=== PATIENT | male | born 1940 | race Caucasian/White ===

== ENCOUNTER 2016-07-25 11:37 | Day surgery (SDC) | payer MEDICARE, BC ==
[2016-07-24 11:11] VITALS: BMI 33.6
[~2016-07-25 11:37] MED LIST: SODIUM CHLORIDE 0.9% 1,000 ML IV SCH
[2016-07-25 12:07] LABS: Glucose,Whole Blood 98 mg/dL (75-99)
[2016-07-25 12:24] VITALS: BP 125/71; RESP 16; TEMP 98.6
[2016-07-25 12:41] LABS: INR 1.9 (<1.1); Prothrombin Time 18.6 sec (9.0-12.0)
[2016-07-25] MEDS ORDERED: IODIXANOL 320 MG/ML 100 ML IV ONE (16:49)
[2016-07-25 17:02] VITALS: PULSE 62
--- NOTE | 2016-07-25 18:01 | CE ---
DATE OF SERVICE: Mr. Ministerio Peacock has Medtronic single-chamber ICD. He was brought in for cinefluoroscopy because there was noise noted in his ventricular channel on the first july. No ICD shocks were delivered. The ICD was reprogrammed with longer detections of the VT zone. Cinefluoroscopy of the leads was performed. No fractures or breaks are noted. He has a dual coil ICD lead. Left upper extremity venogram was performed and this showed a large patent vein (subclavian and axillary) without any stenosis. PLAN: I will reassess his past ICD record to see percentage of ventricular pacing to decide regarding implantation of a new lead versus implantation of subcutaneous ICD. I did have [employer] interrogate his vectors and he does qualify for subcutaneous ICD also (3 out of 3 configurations). Michelle/Pallavi at [facility]
== END 2016-07-25 17:07 | disposition home or self-care (01) ==
LOC: CATHEP 11:37
PROVIDERS: ATTEND Internal Medicine Clinical Cardiac Electrophysiology
DX: Z45.010 Encounter for checking and testing of cardiac pacemaker pulse generator [battery] (principal); I48.2 Chronic atrial fibrillation; E78.5 Hyperlipidemia, unspecified; I25.5 Ischemic cardiomyopathy; E78.2 Mixed hyperlipidemia; I12.9 Hypertensive chronic kidney disease with stage 1 through stage 4 chronic kidney disease, or unspecified chronic kidney disease; N18.9 Chronic kidney disease, unspecified; Z91.040 Latex allergy status; Z88.5 Allergy status to narcotic agent; Z79.01 Long term (current) use of anticoagulants; Z88.8 Allergy status to other drugs, medicaments and biological substances; Z88.1 Allergy status to other antibiotic agents; Z85.46 Personal history of malignant neoplasm of prostate; I48.92 Unspecified atrial flutter; Z86.73 Personal history of transient ischemic attack (TIA), and cerebral infarction without residual deficits; Z79.84 Long term (current) use of oral hypoglycemic drugs; Z79.899 Other long term (current) drug therapy
CPT/HCPCS: 36005; 75820; 76000; 85610; Q9967

== ENCOUNTER → 2016-08-28 | Outpatient (CLI) | payer MEDICARE, BC ==
[2016-08-28 14:07] LABS: Potassium 4.8 mmol/L (3.5-5.1); Total Bilirubin 0.6 mg/dL (0.2-1.3); Total Protein 6.8 g/dL (6.3-8.2)
== END | disposition home or self-care (01) ==
LOC: LABWHC1 13:03
PROVIDERS: ATTEND Internal Medicine Interventional Cardiology
DX: N18.9 Chronic kidney disease, unspecified (principal); I25.5 Ischemic cardiomyopathy
CPT/HCPCS: 36415; 80053; 81050; 82570; 83880; 84156

== ENCOUNTER 2016-09-11 15:02 | Emergency (ER) | payer MEDICARE, BC ==
[2016-09-11 15:13] VITALS: RESP 18; TEMP 98.1
--- NOTE | 2016-09-11 15:48 | CT ---
EXAMINATION TYPE: CT brain wo con DATE OF EXAM: 09/11/2016 3:41 PM COMPARISON: Previous study dated 06/05/2016. HISTORY: fall today TECHNIQUE: Helical acquisition through the brain was obtained without intravenous contrast. The data was reformatted in axial, coronal and sagittal projections. CT DLP: 1072.3 mGycm Automated exposure control for dose reduction was used. FINDINGS: There are generalized changes of sulcal prominence and ventriculomegaly, compatible with atrophic meera nge. There is diffuse periventricular white matter lucency, compatible with chronic white matter isch emic change. There is no acute focal lesion, mass effect or midline shift identified. I do not see ev idence of intracranial blood. There been bilateral Coldwell Aidan procedures. There is mucoperiosteal thickening involving the right maxillary sinus. There has been a previous ethmoidectomy. There is some residual mucosal thickening. The mastoid air cells are clear. IMPRESSION: 1. NO ACUTE INTRACRANIAL ABNORMALITY. 2. ATROPHIC CHANGE. 3. CHRONIC WHITE MATTER ISCHEMIC CHANGE. 4. POSTSURGICAL CHANGE INVOLVING THE SINUSES WITH PERSISTENT SINUS MUCOSAL DISEASE INVOLVING THE RIGH T MAXILLARY AND ETHMOIDAL SINUSES.
--- NOTE | 2016-09-11 16:01 | ED ---
General Adult HPI - General Chief complaint: Fall Stated complaint: Fall Time Seen by Provider: 09/11/16 15:10 Source: patient, EMS, RN notes reviewed Mode of arrival: EMS - History of Present Illness Initial comments: This is a 76-year-old male who presents emergency department after having had a fall. Patient states he is on blood thinners. Patient states he bent over to brick picker something on the floor and he fell backwards hit the back of his head. Patient states he was not days he did not lose consciousness but he does have a headache and posterior aspect of his head. Patient states he is a little neck stiffness but he is always quite stiff. Patient states he has no numbness or weakness. Patient also states he fell over and hit the side of his ribs on the right and has a little bit tender. Patient denies any difficulty breathing or shortness of breath. Patient denies any abdominal pain. Patient denies any upper shoulder pain or lower extremity pain. - Related Data Home Medications Medication Instructions Recorded Confirmed Carvedilol [Coreg] 25 mg PO BID 01/26/14 09/11/16 Isosorbide Mononitrate [Imdur] 60 mg PO DAILY 01/26/14 09/11/16 Simvastatin [Zocor] 40 mg PO HS 01/26/14 09/11/16 Losartan [Cozaar] 25 mg PO DAILY 06/04/16 09/11/16 Acetaminophen Tab [Tylenol] 500 mg PO Q4-6H PRN 07/24/16 09/11/16 Baclofen [Lioresal] 10 mg PO BID 07/24/16 09/11/16 Furosemide [Lasix] 40 mg PO DAILY 07/24/16 09/11/16 Gabapentin [Neurontin] 100 mg PO BID 07/24/16 09/11/16 Warfarin [Coumadin] 2.5 mg PO SUTUTH 07/24/16 09/11/16 Warfarin [Coumadin] 5 mg PO MOWEFRSA 07/24/16 09/11/16 Butalb/APAP/Caff 50-325-40Mg 1 tab PO BID PRN 09/11/16 09/11/16 [Fioricet 50-325-40] Nizatidine [Axid] 150 mg PO DAILY 09/11/16 09/11/16 Sulfamethox-Tmp 800-160Mg [Bactrim 1 tab PO Q12HR 09/11/16 09/11/16 DS 800-160 mg] Previous Rx's Medication Instructions Recorded sitaGLIPtin PHOSPHATE [Januvia] 50 mg PO DAILY #30 tab 05/23/16 Allergies Allergy/AdvReac Type Severity Reaction Status Date / Time ciprofloxacin Allergy Rash/Hives Verified 09/11/16 15:43 codeine Allergy Rapid Verified 09/11/16 15:43 Heart Rate diclofenac sodium Allergy Rash/Hives Verified 09/11/16 15:43 [From Voltaren] hydrocodone [From [place]] Allergy Parkinson Verified 09/11/16 15:43 like symptoms latex Allergy Dyspnea, Verified 09/11/16 15:43 hives Review of Systems ROS Statement: Those systems with pertinent positive or pertinent negative responses have been documented in the HPI. ROS Other: All systems not noted in ROS Statement are negative. Past Medical History Past Medical History: Cancer, COPD, CVA/TIA, Diabetes Mellitus, Hyperlipidemia, Hypertension, Myocardial Infarction ([place]), Osteoarthritis (OA), Prostate Disorder , Sleep Apnea/CPAP/BIPAP Additional Past Medical History / Comment(s): SEE DR LUNDBERG'S H&P, SOB W/ ACTIVITY, KIDNEY STONES, PROSTATE CA 1998, URINARY INCONTINENCE, BACK PAIN, DDD , weak left leg-uses walker,. HAD 1 SEIZURE AFTER STROKE IN 1998, GOUT, MACULAR DEGENERATION, uses CPAP Last Myocardial Infarction Date:: 1996 History of Any Multi-Drug Resistant Organisms: None Reported Past Surgical History: Adenoidectomy, AICD, Appendectomy, Back Surgery, Cholecystectomy, Heart Catheterization With Stent, Joint Replacement, Orthopedic Surgery, Prostate Surgery, Tonsillectomy Additional Past Surgical History / Comment(s): LT HIP REPLACEMENT, PROSTATECTOMY , AICD GENERATOR CHANGE 02-01-14, TALITA CATARACTS, SX RT EYE FOR"BLEEDING BEHIND EYE" Additional Past Anesthesia/Blood Transfusion Reaction / Comment(s): PT HAD HALLUCINATIONS WITH EPIDURAL ANESTHESIA. UNKNOWN ANESTHESIA FAMILY HX Date of Last Stent Placement:: 1996 Type of Cardiac Device: AICD Device Placement Date:: 2005-MEDTRONIC- GENERATOR CHANGE 02-01-14 Past Psychological History: Anxiety, Depression Additional Psychological History / Comment(s): PT STATED LAST FEW WEEKS HAS HAD SOME DEPRESSION-DENIES ANY THOUGHTS OF HARMING SELF, BUT HAS SOEM HOPLESSNESS FEELING FOR FUTURE. Smoking Status: Former smoker Past Alcohol Use History: None Reported Additional Past Alcohol Use History / Comment(s): QUIT SMOKING 1959, HAS RARE ALCOHOL Past Drug Use History: None Reported - Past Family History Brother(s) Family Medical History: Cancer Additional Family Medical History / Comment(s): BRAIN BLEED, LUNG CA Sister(s) Family Medical History: Cancer Additional Family Medical History / Comment(s): BREAST, KIDNEY General Exam - General Exam Comments Initial Comments: GENERAL: Patient is well-developed and well-nourished. Patient is nontoxic and well- hydrated and is in mild distress. ENT: Neck is soft and supple. No significant lymphadenopathy is noted. Oropharynx is clear. Moist mucous membranes. Neck has full range of motion without eliciting any pain. EYES: The sclera were anicteric and conjunctiva were pink and moist. Extraocular movements were intact and pupils were equal round and reactive to light. Eyelids were unremarkable. PULMONARY: Unlabored respirations. Good breath sounds bilaterally. No audible rales rhonchi or wheezing was noted. CARDIOVASCULAR: There is a regular rate and rhythm without any murmurs gallops or rubs. ABDOMEN: Soft and nontender with normal bowel sounds. No palpable organomegaly was noted. There is no palpable pulsatile mass. SKIN: Skin is clear with no lesions or rashes and otherwise unremarkable. NEUROLOGIC: Patient is alert and oriented x3. Cranial nerves II through XII are grossly intact. Motor and sensory are also intact. Normal speech, volume and content. Symmetrical smile. MUSCULOSKELETAL: Normal extremities with adequate strength and full range of motion. LYMPHATICS: No significant lymphadenopathy is noted PSYCHIATRIC: Normal psychiatric evaluation. Normal interpersonal interactions appears functionally intact in deals appropriately with others. No signs of depression. No signs of anxiety. Course Vital Signs 09/11/16 09/11/16 09/11/16 15:07 16:18 16:59 Temperature 98.1 F 98.1 F Pulse Rate 81 78 100 Respiratory 18 18 18 Rate Blood Pressure 99/53 108/63 120/66 O2 Sat by Pulse 97 97 93 L Oximetry Medical Decision Making - Medical Decision Making History of the brain shows no acute abnormality. CT of the C-spine shows a type II odontoid fracture. At this point time a C- spine was placed on the patient because he did not come into the emergency department with one on. Chest x-ray shows a mallet. I spoke with Dr. Casey at [facility] and he accepted the transfer of this patient. Critical Care Time Critical Care Time: Yes Total Critical Care Time: 35 Disposition Clinical Impression: Odontoid fracture with type II morphology Disposition: OTHER INSTITUTION NOT DEFINED Time of Disposition: 17:05 - Out of Hospital Transfer - Req. Specs Out of Hospital Transfer - Requested Specifics: Other Emergency Center ( [facility])
--- NOTE | 2016-09-11 16:15 | CT ---
EXAMINATION TYPE: CT cervical spine wo con DATE OF EXAM: 09/11/2016 4:06 PM COMPARISON: NONE HISTORY: fall today CT DLP: 642.7 mGycm Automated exposure control for dose reduction was used. TECHNIQUE: CT scan of the cervical spine is obtained without contrast, axial images are obtained, sa gittal and coronal reformatted images are also reviewed. FINDINGS: Visualized portions of the lungs are clear. Prevertebral soft tissues are normal. Visualized intracranial structures are normal. There is a type II odontoid fracture. There is minimal posterior displacement and angulation. There is loss of the normal cervical lordosis. There is diffuse degenerative disc disease. There is m arked hypertrophic spondylosis, particularly at C3-4. There is a bony fusion at C6-7 and C7-T1 and al so partial fusion at C4-5. 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 There is no definite discal protrusion. IMPRESSION: 1. TYPE II ODONTOID FRACTURE WITH MINIMAL POSTERIOR ANGULATION AND DISPLACEMENT. 2. SEVERE DEGENERATIVE CHANGE. 3. MULTIPLE BONY EFFUSIONS. 4. EVIDENCE OF FORESTIER'S DISEASE.
--- NOTE | 2016-09-11 16:17 | XR ---
EXAMINATION TYPE: XR chest 2V DATE OF EXAM: 09/11/2016 4:11 PM HISTORY: Difficulty breathing . REFERENCE: Previous study dated 06/04/2016. FINDINGS: There is a unipolar pacemaker place on the left. Lung volumes are prominent. The heart is enlarged. There is bibasilar airspace disease, much worse on the left than the right. I could not exclude small effusions. IMPRESSION: 1. COPD. 2. CARDIOMEGALY. 3. BIBASILAR AIRSPACE DISEASE, WORSE ON THE LEFT THAN THE RIGHT. 4. I CANNOT EXCLUDE SMALL, BILATERAL EFFUSIONS.
[2016-09-11 17:01] VITALS: BP 120/66; PULSE 100
[2016-09-11 17:06] LABS: Basophils % (A) 0 %; CH 28.7; Eosinophils # (A) 0.2 k/uL (0-0.7); Eosinophils % (A) 2 %; HCT 29.3 % (39.0-53.0); HDW 2.52; HGB 9.2 gm/dL (13.0-17.5); Hypochromasia Slight; Luc # (Auto) 0.09; Luc % (Auto) 1; Lymphocytes # (A) 0.3 k/uL (1.0-4.8); Lymphocytes % (A) 5 %; MCH 29.1 pg (25.0-35.0); MCHC 31.4 g/dL (31.0-37.0); MCV 92.8 fL (80.0-100.0); Mean Platelet Volume 7.1; Monocytes # (A) 0.4 k/uL (0-1.0); Monocytes % (A) 5 %; Neutrophils # (A) 5.9 k/uL (1.3-7.7); Neutrophils % (A) 86 %; RBC 3.16 m/uL (4.30-5.90); RDW 14.7 % (11.5-15.5); WBC 6.8 k/uL (3.8-10.6); WBC (Perox) 6.99
[2016-09-11 17:16] LABS: Calcium 9.6 mg/dL (8.4-10.2); Potassium 4.6 mmol/L (3.5-5.1); Total Bilirubin 0.5 mg/dL (0.2-1.3); Total Protein 6.4 g/dL (6.3-8.2)
[2016-09-11] MEDS ORDERED: ONDANSETRON 4 MG/2 ML VIAL IVP STA (17:42)
[2016-09-11 18:10] LABS: INR 1.7 (<1.1); Prothrombin Time 16.3 sec (9.0-12.0)
== END 2016-09-11 18:22 | disposition other institution (70) ==
LOC: EC 15:02
DX: S12.110A Anterior displaced Type II dens fracture, initial encounter for closed fracture (principal); E11.9 Type 2 diabetes mellitus without complications; I10 Essential (primary) hypertension; E78.5 Hyperlipidemia, unspecified; I25.2 Old myocardial infarction; Z95.810 Presence of automatic (implantable) cardiac defibrillator; Z87.442 Personal history of urinary calculi; Z85.46 Personal history of malignant neoplasm of prostate; Z86.73 Personal history of transient ischemic attack (TIA), and cerebral infarction without residual deficits; Z79.84 Long term (current) use of oral hypoglycemic drugs; Z79.01 Long term (current) use of anticoagulants; Z79.899 Other long term (current) drug therapy; Z88.5 Allergy status to narcotic agent; Z88.8 Allergy status to other drugs, medicaments and biological substances; Z88.1 Allergy status to other antibiotic agents; Z91.040 Latex allergy status
CPT/HCPCS: 36415; 83880; 80053; 85025; 85610; 85730; 71020; 72125; 70450; 99285; 96374; J2405

== ENCOUNTER → 2016-10-15 | Outpatient (CLI) | payer MEDICARE, BC ==
--- NOTE | 2016-10-15 12:02 | XR ---
Lumbar spine HISTORY: T6 fracture, pain 3 views of the lumbar spine, comparison the thoracic spine same date There is multilevel spondylosis. Bone mineralization is reduced. Anterolisthesis grade 1 L4-5, retrol isthesis grade 1 L3-4. Loss of disc height present at the intervertebral levels. Vacuum phenomenon is also present. Sclerosis present in the posterior elements of the lower lumbar spine. Dense atheroscl erotic vascular calcifications present within the aorta. Anterior flowing osteophytes present along t he upper lumbar spine, lower thoracic spine with preservation of disc space. Postop changes are noted in the pelvis. IMPRESSION: There are findings of degenerative disc disease and facet arthropathy. Osteopenia. Additi onal findings of diffuse idiopathic skeletal hyperostosis are suspected.
[2016-10-15 12:23] LABS: CH 27.6; CHCM 30.2; HCT 32.3 % (39.0-53.0); HDW 2.56; Hypochromasia Marked; MCH 28.5 pg (25.0-35.0); MCHC 31.1 g/dL (31.0-37.0); MCV 91.7 fL (80.0-100.0); Mean Platelet Volume 6.6; RBC 3.52 m/uL (4.30-5.90); RDW 15.1 % (11.5-15.5); WBC 5.3 k/uL (3.8-10.6)
[2016-10-15 12:36] LABS: Magnesium 2.2 mg/dL (1.6-2.3); Phosphorous 3.7 mg/dL (2.5-4.5); Potassium 4.7 mmol/L (3.5-5.1); Total Bilirubin 0.6 mg/dL (0.2-1.3); Total Protein 6.4 g/dL (6.3-8.2); Uric Acid 9.4 mg/dL (3.5-8.5)
--- NOTE | 2016-10-15 12:37 | XR ---
Thoracic spine HISTORY: T6 vertebral fracture, dens fracture Correlation to CT cervical spine August 2 views of the thoracic spine on 3 images. Bone mineralization is reduced. Flowing anterior osteophytes are noted. Disc spaces relatively mainta ined. Vertebral body height is normal. Alignment is maintained. Patient is rotated. Intracardiac defi brillator lead noted incidentally. Question some increased density at the right lung base. There may be associated air bronchograms. Dens fracture is noted incidentally with displacement. IMPRESSION: Correlate for diffuse idiopathic skeletal hyperostosis. Osteopenia. Difficult to exclude right lower lobe pneumonia, consider follow-up chest x-ray for better evaluation. Known dens fracture .
[2016-10-15 12:45] LABS: % Iron Saturation 16.5 % (20-50)
== END | disposition home or self-care (01) ==
LOC: RADXRMAIN 10:54
PROVIDERS: ATTEND Nurse Practitioner Family
DX: S22.059A Unspecified fracture of T5-T6 vertebra, initial encounter for closed fracture (principal); M85.88 Other specified disorders of bone density and structure, other site; N17.9 Acute kidney failure, unspecified; D64.9 Anemia, unspecified; E21.3 Hyperparathyroidism, unspecified; E55.9 Vitamin D deficiency, unspecified; M10.9 Gout, unspecified
CPT/HCPCS: 36415; 72070; 72100; 80053; 82306; 82728; 83540; 83550; 83735; 83970; 84100; 84550; 85027

== ENCOUNTER → 2016-11-27 | Outpatient (CLI) | payer MEDICARE, BC ==
--- NOTE | 2016-11-27 14:55 | XR ---
Limited cervical spine HISTORY: Cervical and thoracic fracture 3 views of the cervical spine Correlation to previous cervical spine CT dated August Patient's odontoid fracture is again noted and shows a similar appearance. Bone mineralization is red uced. Hypertrophic changes are stable, there is possibly underlying diffuse idiopathic skeletal hyper ostosis. Prevertebral soft tissues are unchanged. Multilevel facet arthropathy noted. Defibrillator l ead incidentally noted. IMPRESSION: Displaced odontoid fracture is stable.
--- NOTE | 2016-11-27 14:59 | XR ---
Thoracic spine HISTORY: History of thoracic spine fracture 2 views of the thoracic spine correlated to prior exam 15 October 2016 Intracardiac defibrillator lead is present. Bone mineralization is reduced and may limit sensitivity. There is multilevel spondylosis, bridging osteophytes suggest underlying diffuse idiopathic skeletal hyperostosis. No subluxation is evident. Question some mild anterior wedging its T6 is stable. IMPRESSION: Low bone mineralization may limit sensitivity. CT scan could be performed for better eval uation. Additional findings above.
== END | disposition home or self-care (01) ==
LOC: RADXRMAIN 10:54
PROVIDERS: ATTEND Neurological Surgery
DX: S12.110A Anterior displaced Type II dens fracture, initial encounter for closed fracture (principal)
CPT/HCPCS: 72040; 72070

== ENCOUNTER → 2017-01-24 | Outpatient (CLI) | payer MEDICARE, BC ==
[2017-01-24 10:33] LABS: Calcium 10.3 mg/dL (8.4-10.2); Magnesium 2.2 mg/dL (1.6-2.3); Phosphorous 3.5 mg/dL (2.5-4.5); Potassium 4.6 mmol/L (3.5-5.1); Total Bilirubin 0.6 mg/dL (0.2-1.3); Total Protein 6.3 g/dL (6.3-8.2); Uric Acid 5.1 mg/dL (3.5-8.5)
[2017-01-24 10:42] LABS: % Iron Saturation 26.6 % (20-50)
[2017-01-24 10:46] LABS: Anisocytosis Slight; CH 30.3; CHCM 31.9; HCT 36.8 % (39.0-53.0); HDW 2.26; MCH 31.2 pg (25.0-35.0); MCHC 32.7 g/dL (31.0-37.0); MCV 95.6 fL (80.0-100.0); Macrocytosis Slight; Mean Platelet Volume 7.2; RBC 3.85 m/uL (4.30-5.90); RDW 17.8 % (11.5-15.5); WBC 8.1 k/uL (3.8-10.6)
== END | disposition home or self-care (01) ==
LOC: LABWHC1 10:00
PROVIDERS: ATTEND Nurse Practitioner Family
DX: N17.9 Acute kidney failure, unspecified (principal); D64.9 Anemia, unspecified; E21.3 Hyperparathyroidism, unspecified; E55.9 Vitamin D deficiency, unspecified; M10.9 Gout, unspecified
CPT/HCPCS: 36415; 80053; 82306; 82728; 83540; 83550; 83735; 83970; 84100; 84550; 85027

== ENCOUNTER → 2017-03-20 | Outpatient (CLI) | payer MEDICARE, BC ==
[2017-03-20 11:28] LABS: Calcium 10.1 mg/dL (8.4-10.2); Potassium 4.1 mmol/L (3.5-5.1); Total Bilirubin 1.1 mg/dL (0.2-1.3); Total Protein 6.4 g/dL (6.3-8.2)
== END | disposition home or self-care (01) ==
LOC: LABWHC1 10:39
PROVIDERS: ATTEND Nurse Practitioner Adult Health
DX: E78.5 Hyperlipidemia, unspecified (principal); I50.22 Chronic systolic (congestive) heart failure
CPT/HCPCS: 36415; 80053; 80061; 83880

== ENCOUNTER 2017-04-21 13:29 | Emergency (ER) | payer MEDICARE, BC ==
[2017-04-21 15:30] VITALS: RESP 18
--- NOTE | 2017-04-21 15:48 | ED ---
ENT HPI - General Chief complaint: ENT Stated complaint: Bloody Nose Time Seen by Provider: 04/21/17 15:11 Source: patient, family (Daughter) Mode of arrival: ambulatory Limitations: no limitations - History of Present Illness Initial comments: Patient presents with nosebleed. Patient states she's had chronic recurrent nosebleeds, has had 3 procedures on his right nasal canal. Patient states for the last week he has had a slow drip down his posterior oropharynx, states every once in a while he is able to spit out bright red blood clot. Patient is on Coumadin. Patient states he stopped Coumadin for 3 days, bleeding resolved, however he was told he needs to resume his Coumadin last Friday, and since that time bleeding has recurred. Patient has an ENT doctor whom he follows with, however patient and family were told bleeding needs to be stopped prior to being seen in their office. Patient is not hypertensive. Patient states he is currently on Amoxicillin for possible sinus infection. Patient denies lightheadedness, syncope, bleeding elsewhere. Patient states since having nasal clamp on for the past 1.5 hours he feels like bleeding is improved. MD complaint: epistaxis Location: nose Severity: mild - Related Data Home Medications Medication Instructions Recorded Confirmed Carvedilol [Coreg] 25 mg PO BID 01/26/14 09/11/16 Isosorbide Mononitrate [Imdur] 60 mg PO DAILY 01/26/14 09/11/16 Simvastatin [Zocor] 40 mg PO HS 01/26/14 09/11/16 Losartan [Cozaar] 25 mg PO DAILY 06/04/16 09/11/16 Acetaminophen Tab [Tylenol] 500 mg PO Q4-6H PRN 07/24/16 09/11/16 Baclofen [Lioresal] 10 mg PO BID 07/24/16 09/11/16 Furosemide [Lasix] 40 mg PO DAILY 07/24/16 09/11/16 Gabapentin [Neurontin] 100 mg PO BID 07/24/16 09/11/16 Warfarin [Coumadin] 2.5 mg PO SUTUTH 07/24/16 09/11/16 Warfarin [Coumadin] 5 mg PO MOWEFRSA 07/24/16 09/11/16 Butalb/APAP/Caff 50-325-40Mg 1 tab PO BID PRN 09/11/16 09/11/16 [Fioricet 50-325-40] Nizatidine [Axid] 150 mg PO DAILY 09/11/16 09/11/16 Sulfamethox-Tmp 800-160Mg [Bactrim 1 tab PO Q12HR 09/11/16 09/11/16 DS 800-160 mg] Previous Rx's Medication Instructions Recorded sitaGLIPtin PHOSPHATE [Januvia] 50 mg PO DAILY #30 tab 05/23/16 Allergies Allergy/AdvReac Type Severity Reaction Status Date / Time albuterol Allergy Dyspnea Verified 04/21/17 13:46 ciprofloxacin Allergy Rash/Hives Verified 09/11/16 15:43 codeine Allergy Rapid Verified 09/11/16 15:43 Heart Rate diclofenac sodium Allergy Rash/Hives Verified 09/11/16 15:43 [From Voltaren] hydrocodone [From [place]] Allergy Parkinson Verified 09/11/16 15:43 like symptoms latex Allergy Dyspnea, Verified 09/11/16 15:43 hives tramadol Allergy Hallucinati Verified 04/21/17 13:46 ons Review of Systems ROS Statement: Those systems with pertinent positive or pertinent negative responses have been documented in the HPI. ROS Other: All systems not noted in ROS Statement are negative. Constitutional: Denies: fever, chills, weakness Eyes: Denies: eye pain, eye discharge, vision change ENT: Reports: epistaxis, congestion. Denies: ear pain, throat pain, dental pain , hearing loss Respiratory: Denies: cough, dyspnea, hemoptysis Cardiovascular: Denies: chest pain, palpitations, syncope Endocrine: Denies: fatigue Gastrointestinal: Denies: abdominal pain, nausea, vomiting Genitourinary: Denies: hematuria Skin: Denies: rash, change in color Neurological: Denies: headache, weakness, numbness, confusion Hematological/Lymphatic: Reports: easy bleeding (On Coumadin) Past Medical History Past Medical History: Cancer, Heart Failure, COPD, CVA/TIA, Diabetes Mellitus, Hyperlipidemia, Hypertension, Myocardial Infarction ([place]), Osteoarthritis (OA), Prostate Disorder, Sleep Apnea/CPAP/BIPAP Additional Past Medical History / Comment(s): SEE DR LUNDBERG'S H&P, SOB W/ ACTIVITY, KIDNEY STONES, PROSTATE CA 1998, URINARY INCONTINENCE, BACK PAIN, DDD , weak left leg-uses walker,. HAD 1 SEIZURE AFTER STROKE IN 1998, GOUT, MACULAR DEGENERATION, uses CPAP Last Myocardial Infarction Date:: 1996 History of Any Multi-Drug Resistant Organisms: None Reported Past Surgical History: Adenoidectomy, AICD, Appendectomy, Back Surgery, Cholecystectomy, Heart Catheterization With Stent, Joint Replacement, Orthopedic Surgery, Prostate Surgery, Tonsillectomy Additional Past Surgical History / Comment(s): LT HIP REPLACEMENT, PROSTATECTOMY , AICD GENERATOR CHANGE 02-01-14, TALITA CATARACTS, SX RT EYE FOR"BLEEDING BEHIND EYE" Additional Past Anesthesia/Blood Transfusion Reaction / Comment(s): PT HAD HALLUCINATIONS WITH EPIDURAL ANESTHESIA. UNKNOWN ANESTHESIA FAMILY HX Date of Last Stent Placement:: 1996 Type of Cardiac Device: AICD Device Placement Date:: 2005-MEDTRONIC- GENERATOR CHANGE 02-01-14 Past Psychological History: Anxiety, Depression Smoking Status: Former smoker Past Alcohol Use History: None Reported Past Drug Use History: None Reported - Past Family History Brother(s) Family Medical History: Cancer Additional Family Medical History / Comment(s): BRAIN BLEED, LUNG CA Sister(s) Family Medical History: Cancer Additional Family Medical History / Comment(s): BREAST, KIDNEY General Exam Limitations: no limitations General appearance: alert, in no apparent distress, other (Sitting up in bed. No acute distress. Conversing normally. Calm, pleasant. Well-appearing.) Head exam: Present: atraumatic, normocephalic Eye exam: Present: normal appearance, PERRL ENT exam: Present: normal oropharynx, mucous membranes moist, other ([place] was right nostril. No active bleeding visualized in nasal canals bilaterally. Oropharynx appears clear, however. Exam patient states he feels blood dripping down the back of his throat, spits out mucus mixed with small amounts of blood) Neck exam: Present: normal inspection. Absent: tenderness Respiratory exam: Present: normal lung sounds bilaterally, other (No respiratory distress). Absent: respiratory distress, wheezes, rhonchi, stridor Cardiovascular Exam: Present: regular rate, normal rhythm GI/Abdominal exam: Present: soft. Absent: distended, tenderness, guarding, rebound Extremities exam: Present: other (No gross deformities) Neurological exam: Present: alert, oriented X3, other ([place] appear well intact) Psychiatric exam: Present: normal affect, normal mood Skin exam: Present: warm, dry. Absent: pallor Course Vital Signs 04/21/17 04/21/17 13:43 15:30 Temperature 97.4 F L Pulse Rate 68 80 Respiratory 20 18 Rate Blood Pressure 127/70 118/65 O2 Sat by Pulse 96 98 Oximetry Medical Decision Making - Medical Decision Making Patient with nasal clamp for 1.5 hours, after removal NO bleeding from nares bilaterally visualized. However patient did have mild slow bleeding in posterior oropharynx, patient spit out mucus mixed with blood. Patient daughter agreed to nasal packing. Mericel packing placed with bacitracin lubricant. Patient tolerated procedure well. Given patient's 1 week of intermittent bleeding, Coumadin use, will check Coumadin level and basic blood work. Hemoglobin 12.7, previous appears to be 12.0, hemoglobin appears at baseline. Patient has no complaints of lightheadedness, syncope, fatigue, shortness of breath, chest pains. INR 1.5, patient was off Coumadin earlier in the week, patient to continue taking Coumadin as prescribed. Patient reassessed after monitoring in the ER, bleeding is resolved with nasal packing. Patient is comfortable going home at this time. Patient to call his ENT doctor to schedule follow-up within 2 days for nasal packing removal. Patient to continue taking his amoxicillin at home. Return to ED if worsening symptoms. Patient daughter understand and agree. Will discharge home at this time. - Lab Data Result diagrams: 04/21/17 15:45 04/21/17 15:45 Lab Results 04/21/17 04/21/17 04/21/17 Range/Units 15:45 15:45 15:45 WBC 9.6 (3.8-10.6) k/uL RBC 4.02 L (4.30-5.90) m/uL Hgb 12.7 L (13.0-17.5) gm/dL Hct 39.3 (39.0-53.0) % MCV 97.9 (80.0-100.0) fL MCH 31.6 (25.0-35.0) pg MCHC 32.2 (31.0-37.0) g/dL RDW 13.8 (11.5-15.5) % Plt Count 156 (150-450) k/uL Neutrophils % 83 % Lymphocytes % 6 % Monocytes % 9 % Eosinophils % 1 % Basophils % 0 % Neutrophils # 8.0 H (1.3-7.7) k/uL Lymphocytes # 0.5 L (1.0-4.8) k/uL Monocytes # 0.9 (0-1.0) k/uL Eosinophils # 0.1 (0-0.7) k/uL Basophils # 0.0 (0-0.2) k/uL PT 14.4 H (9.0-12.0) sec INR 1.5 H (<1.2) Sodium 141 (137-145) mmol/L Potassium 4.0 (3.5-5.1) mmol/L Chloride 104 (98-107) mmol/L Carbon Dioxide 24 (22-30) mmol/L Anion Gap 13 mmol/L BUN 52 H (9-20) mg/dL Creatinine 1.87 H (0.66-1.25) mg/dL Est GFR (MDRD) Af Amer 43 (>60 ml/min/1.73 sqM) Est GFR (MDRD) Non-Af 35 (>60 ml/min/1.73 sqM) Glucose 111 H (74-99) mg/dL Calcium 10.1 (8.4-10.2) mg/dL Disposition Clinical Impression: Mild epistaxis Disposition: HOME SELF-CARE Condition: Good Instructions: Nosebleed (ED) Additional Instructions: Continue taking her antibiotics. Return to ED if new or worsening symptoms. Call your ENT doctor today to schedule follow-up to have packing removed within 2 days. Referrals: Sudhir Coreas MD [Primary Care Provider] - 1-2 days Prasanna Rocha MD [STAFF PHYSICIAN] - 1-2 days
[2017-04-21 15:54] LABS: Basophils % (A) 0 %; CH 31.2; Eosinophils # (A) 0.1 k/uL (0-0.7); Eosinophils % (A) 1 %; HCT 39.3 % (39.0-53.0); HDW 2.43; HGB 12.7 gm/dL (13.0-17.5); Luc # (Auto) 0.19; Luc % (Auto) 2; Lymphocytes # (A) 0.5 k/uL (1.0-4.8); Lymphocytes % (A) 6 %; MCH 31.6 pg (25.0-35.0); MCHC 32.2 g/dL (31.0-37.0); MCV 97.9 fL (80.0-100.0); Mean Platelet Volume 7.4; Monocytes # (A) 0.9 k/uL (0-1.0); Monocytes % (A) 9 %; Neutrophils % (A) 83 %; RBC 4.02 m/uL (4.30-5.90); RDW 13.8 % (11.5-15.5); WBC 9.6 k/uL (3.8-10.6); WBC (Perox) 9.48
[2017-04-21 16:04] LABS: Calcium 10.1 mg/dL (8.4-10.2); INR 1.5 (<1.2); Prothrombin Time 14.4 sec (9.0-12.0)
[2017-04-21 16:32] VITALS: BP 133/73; PULSE 93; TEMP 98.8
== END 2017-04-21 16:30 | disposition home or self-care (01) ==
LOC: EC 13:29
DX: R04.0 Epistaxis (principal); I11.0 Hypertensive heart disease with heart failure; I50.9 Heart failure, unspecified; E78.5 Hyperlipidemia, unspecified; I25.2 Old myocardial infarction; G47.30 Sleep apnea, unspecified; Z99.89 Dependence on other enabling machines and devices; Z85.46 Personal history of malignant neoplasm of prostate; Z95.5 Presence of coronary angioplasty implant and graft; Z86.73 Personal history of transient ischemic attack (TIA), and cerebral infarction without residual deficits; Z86.69 Personal history of other diseases of the nervous system and sense organs; Z87.891 Personal history of nicotine dependence; Z79.01 Long term (current) use of anticoagulants; Z79.899 Other long term (current) drug therapy; Z88.8 Allergy status to other drugs, medicaments and biological substances; Z88.1 Allergy status to other antibiotic agents; Z88.5 Allergy status to narcotic agent; Z88.6 Allergy status to analgesic agent; Z91.040 Latex allergy status
CPT/HCPCS: 30901; 36415; 80048; 80053; 80061; 83880; 85025; 85610; 99283

== ENCOUNTER → 2017-04-21 | Outpatient (CLI) | payer MEDICARE, BC ==
[2017-04-21 15:03] LABS: Calcium 10.5 mg/dL (8.4-10.2); Potassium 4.6 mmol/L (3.5-5.1); Total Bilirubin 0.7 mg/dL (0.2-1.3); Total Protein 6.7 g/dL (6.3-8.2)
== END | disposition home or self-care (01) ==
LOC: LABWHC1 10:23
PROVIDERS: ATTEND Internal Medicine Interventional Cardiology
DX: E78.2 Mixed hyperlipidemia (principal)
CPT/HCPCS: 36415; 80053; 80061; 83880

== ENCOUNTER → 2017-05-07 | Outpatient (CLI) | payer MEDICARE, BC ==
[2017-05-07 13:10] LABS: Calcium 9.8 mg/dL (8.4-10.2); Magnesium 2.1 mg/dL (1.6-2.3); Phosphorous 3.9 mg/dL (2.5-4.5); Potassium 4.6 mmol/L (3.5-5.1); Total Bilirubin 0.6 mg/dL (0.2-1.3); Total Protein 6.3 g/dL (6.3-8.2); Uric Acid 4.9 mg/dL (3.5-8.5)
[2017-05-07 13:24] LABS: CH 31.1; CHCM 30.8; HCT 37.9 % (39.0-53.0); HDW 2.15; HGB 11.5 gm/dL (13.0-17.5); Hypochromasia Slight; MCH 30.7 pg (25.0-35.0); MCHC 30.3 g/dL (31.0-37.0); MCV 101.3 fL (80.0-100.0); Macrocytosis Slight; Mean Platelet Volume 7.2; RBC 3.74 m/uL (4.30-5.90); RDW 13.8 % (11.5-15.5); WBC 5.9 k/uL (3.8-10.6)
[2017-05-07 18:24] LABS: Iron Saturation 23.02 (15.00-50.00)
== END | disposition home or self-care (01) ==
LOC: LABWHC1 11:52
PROVIDERS: ATTEND Nurse Practitioner Family
DX: E55.9 Vitamin D deficiency, unspecified (principal); E21.3 Hyperparathyroidism, unspecified; M10.9 Gout, unspecified; D63.1 Anemia in chronic kidney disease; N18.3 Chronic kidney disease, stage 3 (moderate); N17.9 Acute kidney failure, unspecified
CPT/HCPCS: 36415; 80053; 82306; 82728; 83540; 83550; 83735; 83970; 84100; 84550; 85027

== ENCOUNTER → 2017-08-12 | Outpatient (CLI) | payer MEDICARE, BC ==
[2017-08-12 16:51] LABS: Basophils # (A) 0.1 k/uL (0-0.2); Basophils % (A) 1 %; Eosinophils # (A) 0.3 k/uL (0-0.7); Eosinophils % (A) 5 %; HGB 12.1 gm/dL (13.0-17.5); Hypochromasia Slight; Lymphocytes # (A) 0.8 k/uL (1.0-4.8); Lymphocytes % (A) 16 %; MCH 31.5 pg (25.0-35.0); MCHC 31.8 g/dL (31.0-37.0); MCV 99.1 fL (80.0-100.0); Macrocytosis Slight; Mean Platelet Volume 7.9; Monocytes # (A) 0.5 k/uL (0-1.0); Monocytes % (A) 11 %; Neutrophils # (A) 3.1 k/uL (1.3-7.7); Neutrophils % (A) 64 %; Platelet Count 144 k/uL (150-450); RBC 3.84 m/uL (4.30-5.90); RDW 15.7 % (11.5-15.5); WBC 4.9 k/uL (3.8-10.6)
[2017-08-12 16:57] LABS: Appearance,Urine Clear (Clear); Bilirubin,Urine Negative (Negative); Blood,Urine Negative (Negative); Color,Urine Light Yellow; Glucose,Urine (UA) Negative (Negative); Hyaline Casts,Urine 3 /lpf (0-2); Ketones,Urine Negative (Negative); Leukocyte Esterase,Urine Trace (Negative); Mucus,Urine Rare /hpf; Nitrite,Urine Negative (Negative); Protein,Urine 1+ (Negative); RBC,Urine 1 /hpf (0-5); Specific Gravity,Urine 1.008 (1.001-1.035); Urobilinogen,Urine <2.0 mg/dL (<2.0); WBC,Urine 1 /hpf (0-5)
[2017-08-12 17:00] LABS: Calcium 10.2 mg/dL (8.4-10.2); Magnesium 2.2 mg/dL (1.6-2.3); Phosphorus 3.3 mg/dL (2.5-4.5); Potassium 4.3 mmol/L (3.5-5.1); Uric Acid 5.5 mg/dL (3.5-8.5)
[2017-08-13 03:42] LABS: Iron Saturation 14.92 (15.00-50.00); Parathyroid Hormone Intact 196.1 pg/mL (14.0-72.0); Vitamin D 25 Hydroxy 39.9 ng/mL (30.0-100.0)
== END | disposition home or self-care (01) ==
LOC: LABWHC1 16:05
PROVIDERS: ATTEND Internal Medicine Nephrology
DX: D63.1 Anemia in chronic kidney disease (principal); N18.3 Chronic kidney disease, stage 3 (moderate); N25.81 Secondary hyperparathyroidism of renal origin; E55.9 Vitamin D deficiency, unspecified; D64.9 Anemia, unspecified; E83.39 Other disorders of phosphorus metabolism; M10.9 Gout, unspecified
CPT/HCPCS: 36415; 80048; 81001; 82306; 82728; 83540; 83550; 83735; 83970; 84100; 84550; 85025

== ENCOUNTER → 2017-09-17 | Outpatient (CLI) | payer MEDICARE, BC ==
[2017-09-17 11:38] LABS: Albumin 4.2 g/dL (3.5-5.0); Calcium 10.7 mg/dL (8.4-10.2); Total Bilirubin 0.9 mg/dL (0.2-1.3); Total Protein 7.1 g/dL (6.3-8.2)
== END | disposition home or self-care (01) ==
LOC: LABWHC1 10:49
PROVIDERS: ATTEND Internal Medicine Interventional Cardiology
DX: E78.2 Mixed hyperlipidemia (principal)
CPT/HCPCS: 36415; 80053; 80061

== ENCOUNTER → 2017-10-24 | Outpatient (CLI) | payer MEDICARE, BC ==
[2017-10-24 14:37] LABS: Basophils % (A) 1 %; Eosinophils # (A) 0.2 k/uL (0-0.7); Eosinophils % (A) 4 %; HCT 38.1 % (39.0-53.0); HGB 12.4 gm/dL (13.0-17.5); Lymphocytes # (A) 0.7 k/uL (1.0-4.8); Lymphocytes % (A) 14 %; MCH 30.7 pg (25.0-35.0); MCHC 32.5 g/dL (31.0-37.0); MCV 94.5 fL (80.0-100.0); Mean Platelet Volume 7.9; Monocytes # (A) 0.5 k/uL (0-1.0); Monocytes % (A) 10 %; Neutrophils # (A) 3.3 k/uL (1.3-7.7); Neutrophils % (A) 69 %; Platelet Count 102 k/uL (150-450); RBC 4.04 m/uL (4.30-5.90); RDW 14.5 % (11.5-15.5); WBC 4.7 k/uL (3.8-10.6)
[2017-10-24 14:48] LABS: Calcium 9.9 mg/dL (8.4-10.2); Phosphorus 3.2 mg/dL (2.5-4.5); Potassium 4.4 mmol/L (3.5-5.1); Uric Acid 4.3 mg/dL (3.5-8.5)
[2017-10-24 15:03] LABS: Appearance,Urine Clear (Clear); Bilirubin,Urine Negative (Negative); Blood,Urine Trace (Negative); Color,Urine Light Yellow; Glucose,Urine (UA) Negative (Negative); Hyaline Casts,Urine 11 /lpf (0-2); Ketones,Urine Negative (Negative); Leukocyte Esterase,Urine Small (Negative); Mucus,Urine Rare /hpf; Nitrite,Urine Negative (Negative); Protein,Urine 2+ (Negative); RBC,Urine 2 /hpf (0-5); Specific Gravity,Urine 1.009 (1.001-1.035); Squamous Epithelial Cell,Urine 1 /hpf (0-4); Urobilinogen,Urine <2.0 mg/dL (<2.0); WBC,Urine 5 /hpf (0-5)
[2017-10-24 19:17] LABS: Iron Saturation 17.27 (15.00-50.00)
[2017-10-24 19:25] LABS: Vitamin D 25 Hydroxy 50.6 ng/mL (30.0-100.0)
[2017-10-24 20:11] LABS: Parathyroid Hormone Intact 244.1 pg/mL (14.0-72.0)
== END | disposition home or self-care (01) ==
LOC: LABWHC1 14:11
PROVIDERS: ATTEND Internal Medicine Clinical Cardiac Electrophysiology
DX: I25.5 Ischemic cardiomyopathy (principal); I48.2 Chronic atrial fibrillation; N25.81 Secondary hyperparathyroidism of renal origin; I12.9 Hypertensive chronic kidney disease with stage 1 through stage 4 chronic kidney disease, or unspecified chronic kidney disease; N18.3 Chronic kidney disease, stage 3 (moderate); M10.9 Gout, unspecified; E55.9 Vitamin D deficiency, unspecified; D64.9 Anemia, unspecified; N39.0 Urinary tract infection, site not specified
CPT/HCPCS: 36415; 80048; 81001; 82306; 82728; 83540; 83550; 83735; 83970; 84100; 84550; 85025

== ENCOUNTER 2017-11-04 14:11 | Day surgery (SDC) | payer MEDICARE, BC ==
[2017-11-03 16:02] VITALS: BMI 34.1
[~2017-11-04 14:11] MED LIST changes: -SODIUM CHLORIDE 0.9% 1,000 ML IV SCH; +ceFAZolin 1,000 MG in SODIUM CHLORIDE 0.9% IRRIGATIO 250 ML IRRIGATION ONE; +ceFAZolin IN SWFI 2 GM/20 ML SYRINGE IVP ONE
[2017-11-04] MEDS ORDERED: ceFAZolin 1,000 MG in SODIUM CHLORIDE 0.9% IRRIGATIO 250 ML IRRIGATION ONE (14:45)
[2017-11-04] MEDS ORDERED: ceFAZolin IN SWFI 2 GM/20 ML SYRINGE IVP ONE (14:45)
[2017-11-04] MEDS: SODIUM CHLORIDE 0.9% 1,000 ML IV SCH (15:13)
[2017-11-04 15:20] LABS: Glucose,Whole Blood 88 mg/dL (75-99)
[2017-11-04 15:30] LABS: INR 2.6 (<1.2); Prothrombin Time 23.1 sec (9.0-12.0)
[2017-11-04] MEDS ORDERED: MIDAZOLAM 2 MG/2 ML VIAL ONE (16:40)
[2017-11-04] MEDS ORDERED: PROPOFOL 10 MG/ML 20 ML VIAL IV ONE (16:40)
[2017-11-04] MEDS ORDERED: fentaNYL (PF) 50 MCG/ML 2 ML AMP ONE (16:40)
[2017-11-04] MEDS ORDERED: IOPAMIDOL-250 50ML BTL IV ONE ×2 (16:55)
[2017-11-04 16:58] LABS: Glucose,Whole Blood 86 mg/dL (75-99)
[2017-11-04] MEDS ORDERED: LIDOCAINE 1% INJ 10MG/ML (20 ML MDV) SQ ONE (17:25)
[2017-11-04] MEDS ORDERED: HYDROcodone/APAP 5-325MG 1 EACH TAB PO PRN (18:54)
[2017-11-04] MEDS ORDERED: ACETAMINOPHEN TAB 325 MG TAB PO PRN (18:54)
[2017-11-04] MEDS ORDERED: WARFARIN 5 MG TAB PO SCH (19:30)
--- NOTE | 2017-11-04 19:44 | CE ---
CARDIAC ELECTROPHYSIOLOGY REPORT Ministerio Peacock is a 77-year-old male patient, who has noise in relation to the ICD lead and the defibrillator was turned off. Life Vest was prescribed. He was brought in for a implantation of a new ICD lead. PROCEDURE: Patient brought to the EP lab in a fasting state. Written informed consent was obtained prior to the procedure. The left shoulder area was prepped and draped as per protocol. 1% lidocaine was used for local anesthesia. His subclavian vein was patent and this was accessed at a single point and via appropriately-sized introducer sheath. A single coil Medtronic ICD lead was implanted in the mid to high RV septum and screwed in. This was model number 6935, 65 cm length and serial number [id number]. The R-waves were 22.4 mV, pacing impedance 607 ohms, pacing threshold 0.6 V at 0.5 milliseconds. 10 V test is negative. The lead was secured to the underlying pectoralis fascia using 2 nonabsorbable sutures. Pocket was irrigated with antibiotic solution. The old lead was cut and capped and secured to the pectoralis muscle. The old generator was reused since it had adequate battery life. This was a model number [id number], serial number [id number]. The lead and generator were placed in the subfascial pocket. The wound was closed in 3 layers and dressed per protocol. DFT TESTING UNDER ANESTHESIA: A shock and T-wave protocol was used to induce ventricular fibrillation. This was adequately and appropriately detected at least sensitivity with 4 drop outs and successfully internally defibrillated with a 10 joule shock. The charge time was within normal limits. Shock impedance 64 ohms. No post shock noise. The device was then programmed to 2 zones of therapy. VT zone at 176 beats per minute. VF zone at 214 beats per minute. Appropriate antitachycardia pacing cardioversion defibrillation is programmed. Sensitivity was at nominal settings and sensing was bipolar. Backup pacing VVI at 50-120. The patient has underlying permanent atrial fibrillation. RESULTS: Successful implantation of a new ICD lead. Old lead that was implanted in 2005 showed evidence of VFib coil fracture. The patient tolerated the procedure well without any acute complications. MMODL / IJN: [id number] /
[2017-11-04] MEDS ORDERED: ACETAMINOPHEN IV (For NPO) 1,000 MG in EMPTY BAG 1 BAG IVPB ONE (20:00)
[2017-11-04 20:49] LABS: Glucose,Whole Blood 76 mg/dL (75-99)
[2017-11-04] MEDS ORDERED: GABAPENTIN 100 MG CAP PO SCH (21:00)
[2017-11-04] MEDS ORDERED: ATORVASTATIN 20 MG TAB PO SCH (21:00)
[2017-11-04] MEDS: CARVEDILOL 12.5 MG TAB PO SCH (21:11)
[2017-11-04] MEDS: FUROSEMIDE 40 MG TAB PO SCH (21:11)
[2017-11-05] MEDS: ceFAZolin IN SWFI 2 GM/20 ML SYRINGE IVP SCH ×4 (06:07→17:53)
[2017-11-05 07:04] LABS: Glucose,Whole Blood 90 mg/dL (75-99)
--- NOTE | 2017-11-05 08:06 | P.DS ---
Providers Attending physician: Clayton Garces Primary care physician: [facility] Course: Impression single-chamber dual coil ICD with noise in relation to the SVC coil and the RV coil. Device turned off and LifeVest prescribed Known ischemic cardiomyopathy, old myocardial infarction, known coronary artery disease Left ventricular ejection fraction 20%-30% Persistent atrial fibrillation New single coil ICD lead implanted Plan IV antibiotics and discharged home following device interrogation chest x-ray and follow-up in the device clinic in [address] Hernández as scheduled Plan - Discharge Summary Discharge Rx Participant: No New Discharge Prescriptions: Continue Simvastatin [Zocor] 40 mg PO HS sitaGLIPtin PHOSPHATE [Januvia] 50 mg PO DAILY #30 tab Acetaminophen Tab [Tylenol] 500 mg PO Q4-6H PRN PRN Reason: Pain Warfarin [Coumadin] 2.5 mg PO MOWEFR Warfarin [Coumadin] 5 mg PO SUTUTHSA Gabapentin [Neurontin] 100 mg PO HS Nizatidine [Axid] 150 mg PO DAILY Nitroglycerin Sl Tabs [Nitrostat] 0.4 mg SUBLINGUAL Q5M PRN PRN Reason: Chest Pain Indacaterol/Glycopyrrolate [Utibron Neohaler 27.5-15.6 Mcg] 1 puff INHALATION PC-LUNCH Furosemide [Lasix] 40 mg PO BID Febuxostat [Uloric] 80 mg PO QAM Colchicine [Colcrys] 0.6 mg PO DAILY Carvedilol [Coreg] 12.5 mg PO BID Discharge Medication List Simvastatin [Zocor] 40 mg PO HS 01/26/14 [History] sitaGLIPtin PHOSPHATE [Januvia] 50 mg PO DAILY #30 tab 05/23/16 [Rx] Acetaminophen Tab [Tylenol] 500 mg PO Q4-6H PRN 07/24/16 [History] Gabapentin [Neurontin] 100 mg PO HS 07/24/16 [History] Warfarin [Coumadin] 2.5 mg PO MOWEFR 07/24/16 [History] Warfarin [Coumadin] 5 mg PO SUTUTHSA 07/24/16 [History] Nizatidine [Axid] 150 mg PO DAILY 09/11/16 [History] Carvedilol [Coreg] 12.5 mg PO BID 10/28/17 [History] Colchicine [Colcrys] 0.6 mg PO DAILY 10/28/17 [History] Febuxostat [Uloric] 80 mg PO QAM 10/28/17 [History] Furosemide [Lasix] 40 mg PO BID 10/28/17 [History] Indacaterol/Glycopyrrolate [Utibron Neohaler 27.5-15.6 Mcg] 1 puff INHALATION PC -LUNCH 10/28/17 [History] Nitroglycerin Sl Tabs [Nitrostat] 0.4 mg SUBLINGUAL Q5M PRN 10/28/17 [History] Activity/Diet/Wound Care/Special Instructions: PATIENT EDUCATION MATERIAL Instructions following a heart rhythm device implant. 1. Keep dressing DRY for 5 DAYS. You may cover the area with Saran or Cling Wrap, prior to a shower. 2. The dressing will be removed in the Device Clinic at [facility]. Absorbable sutures were used to close the wound. 3. Avoid raising the left arm above the shoulder level. 4 week restriction 4. Avoid arm movements, like backscratching, rubbing the head, or pulling on a cord. 4 weeks restriction 5. Gentle range of motion movements of the shoulder, closest to the incision should be performed to avoid a frozen shoulder. (Pendulum exercises of the shoulder) 6. The opposite arm may be used freely. 7. Avoid driving for 7 days. 8. Avoid activities such as golfing, swimming, weed whacking, lifting more than 10 pounds weight, bowling, gymnastics and weight training/lifting. (6 weeks restriction) 9. Activities such as wood chopping with an axe, pull-ups in the gymnasium, power lifting, arc-welding, being close to home induction cooktops will always be a problem. 10. Arm sling is a mere reminder not to raise the arm above the head. However you do not need to keep the arm completely immobilized. Your free to move the arm and use it and for normal activities. In case of any problems, please call [facility], [place], @ [phone], Attention: Device Clinic Device clinic follow-up in 5 days Follow-up with primary threat analyst in 2-3 months, Dr. Hernández No changes in medications Discharge Disposition: HOME SELF-CARE
--- NOTE | 2017-11-05 08:06 | P.DS ---
Providers Attending physician: Clayton Garces Primary care physician: [facility] Course: Patient is doing well. Minimal discomfort in the ICD site. No bruising Her chest discomfort dizziness lightheadedness. He is sitting comfortably in a chair. Pulse rate in the 70s, he is afebrile rhythm is irregular Blood pressure 123/66. His mercury Heart sounds are grossly available normal no murmurs or gallops no rub Breath sounds are clear no rhonchi no crackles Extremities warm no edema Abdomen soft Impression Known cardiac myopathy, ischemic, severe CHF class II, stable Chronic ICD lead fracture Implantation of new ICD lead yesterday Plan Discharge home after chest x-ray, if within normal limits If device interrogation is within normal limits And completion of IV antibiotics In the office in [address] Hernández as scheduled Patient Condition at Discharge: Stable Plan - Discharge Summary Discharge Rx Participant: No New Discharge Prescriptions: Continue RX: Simvastatin [Zocor] 40 mg PO HS RX: sitaGLIPtin PHOSPHATE [Januvia] 50 mg PO DAILY #30 tab RX: Acetaminophen Tab [Tylenol] 500 mg PO Q4-6H PRN PRN Reason: Pain RX: Warfarin [Coumadin] 2.5 mg PO MOWEFR RX: Warfarin [Coumadin] 5 mg PO SUTUTHSA RX: Gabapentin [Neurontin] 100 mg PO HS RX: Nizatidine [Axid] 150 mg PO DAILY RX: Nitroglycerin Sl Tabs [Nitrostat] 0.4 mg SUBLINGUAL Q5M PRN PRN Reason: Chest Pain RX: Indacaterol/Glycopyrrolate [Utibron Neohaler 27.5-15.6 Mcg] 1 puff INHALATION PC-LUNCH RX: Furosemide [Lasix] 40 mg PO BID RX: Febuxostat [Uloric] 80 mg PO QAM RX: Colchicine [Colcrys] 0.6 mg PO DAILY RX: Carvedilol [Coreg] 12.5 mg PO BID Discharge Medication List RX: Simvastatin [Zocor] 40 mg PO HS 01/26/14 [History] RX: sitaGLIPtin PHOSPHATE [Januvia] 50 mg PO DAILY #30 tab 05/23/16 [Rx] RX: Acetaminophen Tab [Tylenol] 500 mg PO Q4-6H PRN 07/24/16 [History] RX: Gabapentin [Neurontin] 100 mg PO HS 07/24/16 [History] RX: Warfarin [Coumadin] 2.5 mg PO MOWEFR 07/24/16 [History] RX: Warfarin [Coumadin] 5 mg PO SUTUTHSA 07/24/16 [History] RX: Nizatidine [Axid] 150 mg PO DAILY 09/11/16 [History] RX: Carvedilol [Coreg] 12.5 mg PO BID 10/28/17 [History] RX: Colchicine [Colcrys] 0.6 mg PO DAILY 10/28/17 [History] RX: Febuxostat [Uloric] 80 mg PO QAM 10/28/17 [History] RX: Furosemide [Lasix] 40 mg PO BID 10/28/17 [History] RX: Indacaterol/Glycopyrrolate [Utibron Neohaler 27.5-15.6 Mcg] 1 puff INHALATION PC-LUNCH 10/28/17 [History] RX: Nitroglycerin Sl Tabs [Nitrostat] 0.4 mg SUBLINGUAL Q5M PRN 10/28/17 [ History] Activity/Diet/Wound Care/Special Instructions: PATIENT EDUCATION MATERIAL Instructions following a heart rhythm device implant. 1. Keep dressing DRY for 5 DAYS. You may cover the area with Saran or Cling Wrap, prior to a shower. 2. The dressing will be removed in the Device Clinic at [facility]. Absorbable sutures were used to close the wound. 3. Avoid raising the left arm above the shoulder level. 4 week restriction 4. Avoid arm movements, like backscratching, rubbing the head, or pulling on a cord. 4 weeks restriction 5. Gentle range of motion movements of the shoulder, closest to the incision should be performed to avoid a frozen shoulder. (Pendulum exercises of the shoulder) 6. The opposite arm may be used freely. 7. Avoid driving for 7 days. 8. Avoid activities such as golfing, swimming, weed whacking, lifting more than 10 pounds weight, bowling, gymnastics and weight training/lifting. (6 weeks restriction) 9. Activities such as wood chopping with an axe, pull-ups in the gymnasium, power lifting, arc-welding, being close to home induction cooktops will always be a problem. 10. Arm sling is a mere reminder not to raise the arm above the head. However you do not need to keep the arm completely immobilized. Your free to move the arm and use it and for normal activities. In case of any problems, please call [facility], [place], @ [phone], Attention: Device Clinic Device clinic follow-up in 5 days Follow-up with primary executive asst in 2-3 months, Dr. Hernández No changes in medications Discharge Disposition: HOME SELF-CARE
--- NOTE | 2017-11-05 08:15 | XR ---
EXAMINATION TYPE: XR chest 2V DATE OF EXAM: 11/05/2017 COMPARISON: Prior chest x-ray September 11, 2016 HISTORY: Lead placement check TECHNIQUE: Frontal and lateral views of the chest are obtained. FINDINGS: Intracardiac defibrillator leads are present within the right ventricle. No pneumothorax. Heart remains enlarged. Generator present in the left pectoral region. Increased basilar density in t he right again noted, the right costophrenic angle is blunted, there is obscured right hemidiaphragm. Pulmonary vascularity and dominga are similar in appearance. Patient is rotated. IMPRESSION: No evident complication status post lead placement. Right pleural effusion and associate d atelectasis, correlate for edema versus pneumonia.
[2017-11-05 08:28] VITALS: RESP 18
[2017-11-05] MEDS ORDERED: ALLOPURINOL 100 MG TAB PO SCH (09:00)
[2017-11-05] MEDS ORDERED: LINAGLIPTIN 5 MG TABLET PO SCH (09:00)
[2017-11-05] MEDS ORDERED: FAMOTIDINE 20 MG TAB PO SCH (09:00)
[2017-11-05] MEDS ORDERED: COLCHICINE 0.6 MG EACH PO SCH (09:00)
[2017-11-05] MEDS: FUROSEMIDE 40 MG TAB PO SCH (09:13)
[2017-11-05] MEDS: CARVEDILOL 12.5 MG TAB PO SCH ×2 (09:13→17:54)
[2017-11-05] MEDS: SODIUM CHLORIDE 0.9% 1,000 ML IV SCH (09:16)
[2017-11-05 12:15] LABS: Glucose,Whole Blood 84 mg/dL (75-99)
[2017-11-05 16:08] VITALS: BP 102/59; PULSE 83; TEMP 98.6
[2017-11-05 17:06] LABS: Glucose,Whole Blood 88 mg/dL (75-99)
[2017-11-05] MEDS ORDERED: WARFARIN 2.5 MG TAB PO SCH (18:00)
== END 2017-11-05 18:30 | disposition home or self-care (01) ==
LOC: CATHEP 14:11 → 3OBS 18:15 → CATHEP 11-05 18:30
PROVIDERS: ATTEND Internal Medicine Clinical Cardiac Electrophysiology
DX: T82.110A Breakdown (mechanical) of cardiac electrode, initial encounter (principal); I42.9 Cardiomyopathy, unspecified; I25.10 Atherosclerotic heart disease of native coronary artery without angina pectoris; I13.0 Hypertensive heart and chronic kidney disease with heart failure and stage 1 through stage 4 chronic kidney disease, or unspecified chronic kidney disease; I50.9 Heart failure, unspecified; E13.22 Other specified diabetes mellitus with diabetic chronic kidney disease; N18.9 Chronic kidney disease, unspecified; Z79.84 Long term (current) use of oral hypoglycemic drugs; J44.9 Chronic obstructive pulmonary disease, unspecified; G47.33 Obstructive sleep apnea (adult) (pediatric); E11.22 Type 2 diabetes mellitus with diabetic chronic kidney disease; N42.9 Disorder of prostate, unspecified; H40.9 Unspecified glaucoma; D69.6 Thrombocytopenia, unspecified; Z79.01 Long term (current) use of anticoagulants; Z79.899 Other long term (current) drug therapy; Z88.5 Allergy status to narcotic agent; Z88.2 Allergy status to sulfonamides; Z88.8 Allergy status to other drugs, medicaments and biological substances; Z88.6 Allergy status to analgesic agent; Z88.1 Allergy status to other antibiotic agents; Z91.040 Latex allergy status
CPT/HCPCS: 93641; 33216; 85610; 71046; C1769 ×2; C1895; J0690 ×3; J2001; Q9966

== ENCOUNTER → 2018-02-11 | Outpatient (CLI) | payer MEDICARE, BC ==
[2018-02-11 12:14] LABS: Appearance,Urine Clear (Clear); Bilirubin,Urine Negative (Negative); Blood,Urine Negative (Negative); Calcium 9.6 mg/dL (8.4-10.2); Color,Urine Light Yellow; Glucose,Urine (UA) Negative (Negative); Ketones,Urine Negative (Negative); Leukocyte Esterase,Urine Negative (Negative); Mucus,Urine Rare /hpf; Nitrite,Urine Negative (Negative); Phosphorus 3.2 mg/dL (2.5-4.5); Potassium 4.6 mmol/L (3.5-5.1); Protein,Urine 2+ (Negative); Specific Gravity,Urine 1.007 (1.001-1.035); Uric Acid 4.1 mg/dL (3.5-8.5); Urobilinogen,Urine <2.0 mg/dL (<2.0); WBC,Urine 1 /hpf (0-5)
[2018-02-11 12:24] LABS: Basophils % (A) 1 %; Eosinophils # (A) 0.1 k/uL (0-0.7); Eosinophils % (A) 3 %; HCT 36.9 % (39.0-53.0); HGB 11.8 gm/dL (13.0-17.5); Hypochromasia Slight; Lymphocytes # (A) 0.5 k/uL (1.0-4.8); Lymphocytes % (A) 13 %; MCH 30.6 pg (25.0-35.0); MCHC 31.9 g/dL (31.0-37.0); Mean Platelet Volume 7.8; Monocytes # (A) 0.3 k/uL (0-1.0); Monocytes % (A) 8 %; Neutrophils # (A) 2.8 k/uL (1.3-7.7); Neutrophils % (A) 71 %; RBC 3.85 m/uL (4.30-5.90); RDW 15.7 % (11.5-15.5)
[2018-02-11 14:30] LABS: Platelet Count 97 k/uL (150-450)
[2018-02-11 14:33] LABS: Anisocytosis (M) Present; Poikilocytosis (M) Present
[2018-02-11 16:30] LABS: Parathyroid Hormone Intact 273.3 pg/mL (14.0-72.0)
[2018-02-11 16:49] LABS: Iron Saturation 17.25 (15.00-50.00)
[2018-02-11 16:57] LABS: Vitamin D 25 Hydroxy 25.6 ng/mL (30.0-100.0)
[2018-02-11 20:15] LABS: Hemoglobin A1C 5.4 % (4.0-6.0)
[2018-02-12 05:01] LABS: Angiotensin-1 Converting Enz. 55 U/L (8-52)
[2018-02-12 18:47] LABS: Vitamin D, 1, 25-Dihydroxy 22 pg/mL (20 - 79)
== END | disposition home or self-care (01) ==
LOC: LABWHC1 10:28
PROVIDERS: ATTEND Nurse Practitioner Family
DX: N25.81 Secondary hyperparathyroidism of renal origin (principal); N18.3 Chronic kidney disease, stage 3 (moderate)
CPT/HCPCS: 36415; 80048; 81001; 82164; 82306; 82652; 82728; 83036; 83540; 83550; 83735; 83970; 84100; 84550; 85025; 86334; 86335

== ENCOUNTER → 2018-03-18 | Outpatient (CLI) | payer MEDICARE, BC ==
[2018-03-18 12:16] LABS: Calcium 9.6 mg/dL (8.4-10.2); Potassium 4.1 mmol/L (3.5-5.1)
== END | disposition home or self-care (01) ==
LOC: LABWHC1 11:33
PROVIDERS: ATTEND Nurse Practitioner Family
DX: N25.81 Secondary hyperparathyroidism of renal origin (principal); N18.3 Chronic kidney disease, stage 3 (moderate)
CPT/HCPCS: 36415; 80048; 83970

== ENCOUNTER → 2018-03-24 | Outpatient (CLI) | payer MEDICARE, BC ==
[2018-03-24 12:30] LABS: Calcium 9.6 mg/dL (8.4-10.2); Potassium 4.4 mmol/L (3.5-5.1)
== END | disposition home or self-care (01) ==
LOC: LABWHC1 11:13
PROVIDERS: ATTEND Nurse Practitioner Family
DX: N18.3 Chronic kidney disease, stage 3 (moderate) (principal)
CPT/HCPCS: 36415; 80048

== ENCOUNTER 2018-03-30 13:23 | Inpatient (IN) | payer MEDICARE, BC ==
--- NOTE | 2018-03-30 13:49 | ED ---
General Adult HPI - General Chief complaint: Shortness of Breath Stated complaint: Sob Time Seen by Provider: 03/30/18 13:31 Source: patient, RN notes reviewed, old records reviewed Mode of arrival: wheelchair Limitations: no limitations - History of Present Illness Initial comments: 77-year-old male with history of COPD, CHF, atrial fibrillation, and "johnson's lung" presents for evaluation of dyspnea. Patient's symptoms have progressed over the past week. They have been more severe over the past 1-2 days. Patient denies significant cough. Denies fever. He has had some chills. Denies chest pain. Patient does report some lower extremity weight gain despite taking 120 mg of Lasix daily. He also reports orthopnea. He has been using his CPAP machine with minimal relief. He is currently not on home oxygen. - Related Data Home Medications Medication Instructions Recorded Confirmed Simvastatin [Zocor] 40 mg PO HS 01/26/14 03/30/18 Acetaminophen Tab [Tylenol] 500 mg PO Q4-6H PRN 07/24/16 03/30/18 Gabapentin [Neurontin] 100 mg PO HS 07/24/16 03/30/18 Warfarin [Coumadin] 2.5 mg PO SUTUWEFRSA 07/24/16 03/30/18 Warfarin [Coumadin] 5 mg PO MOTH 07/24/16 03/30/18 Nizatidine [Axid] 150 mg PO DAILY 09/11/16 03/30/18 Carvedilol [Coreg] 12.5 mg PO BID 10/28/17 03/30/18 Colchicine [Colcrys] 0.6 mg PO DAILY 10/28/17 03/30/18 Febuxostat [Uloric] 80 mg PO QAM 10/28/17 03/30/18 Furosemide [Lasix] 40 mg PO W/SUPPER 10/28/17 03/30/18 Indacaterol/Glycopyrrolate 1 puff INHALATION RT-DAILY@1300 10/28/17 03/30/18 [Utibron Neohaler 27.5-15.6 Mcg] Nitroglycerin Sl Tabs [Nitrostat] 0.4 mg SUBLINGUAL Q5M PRN 10/28/17 03/30/18 Artificial Tears-Hypromellose 1 drop BOTH EYES QID PRN 03/30/18 03/30/18 [Artificial Tear Drops] Furosemide [Lasix] 80 mg PO QAM 03/30/18 03/30/18 Sodium Chloride [[place]] 1 spray EA NOSTRIL DAILY PRN 03/30/18 03/30/18 Previous Rx's Medication Instructions Recorded sitaGLIPtin PHOSPHATE [Januvia] 50 mg PO DAILY #30 tab 05/23/16 Allergies Allergy/AdvReac Type Severity Reaction Status Date / Time albuterol Allergy Dyspnea,estefania Verified 03/30/18 14:08 h amoxicillin [From Augmentin] Allergy Wheezing Verified 03/30/18 14:08 baclofen Allergy Dyspnea, Verified 03/30/18 14:08 face swelling and rash ciprofloxacin Allergy Rash/Hives Verified 03/30/18 14:08 / WHEEZING clavulanic acid Allergy Wheezing Verified 03/30/18 14:08 [From Augmentin] codeine Allergy Wheezing Verified 03/30/18 14:08 diclofenac sodium Allergy GI UPSET Verified 03/30/18 14:08 [From Voltaren] RASH/HIVES hydrocodone [From [place]] Allergy Nausea & Verified 03/30/18 14:08 Vomiting & Diarrhea latex Allergy Dyspnea, Verified 03/30/18 14:08 hives Sulfa (Sulfonamide Allergy Dyspnea/ESTEFANIA Verified 03/30/18 14:08 Antibiotics) H tramadol Allergy Hallucinati Verified 03/30/18 14:08 ons Review of Systems ROS Statement: Those systems with pertinent positive or pertinent negative responses have been documented in the HPI. ROS Other: All systems not noted in ROS Statement are negative. Past Medical History Past Medical History: Cancer, COPD, CVA/TIA, Diabetes Mellitus, Hyperlipidemia, Myocardial Infarction (OR), Osteoarthritis (OA), Prostate Disorder, Skin Disorder, Sleep Apnea/CPAP/BIPAP Additional Past Medical History / Comment(s): SEE DR LUNDBERG'S H&P, SOB W/ ACTIVITY, KIDNEY STONES, 26% kidney function, PROSTATE CA, URINARY INCONTINENCE , DDD, weak left leg-uses walker, HAD 1 SEIZURE AFTER STROKE IN 1998, GOUT, MACULAR DEGENERATION, glaucoma, impingements in neck(fx neck 2016), gets patches of broken skin on face, Last Myocardial Infarction Date:: 1996 History of Any Multi-Drug Resistant Organisms: None Reported Past Surgical History: Adenoidectomy, AICD, Appendectomy, Back Surgery, Cholecystectomy, Heart Catheterization With Stent, Joint Replacement, Orthopedic Surgery, Prostate Surgery, Tonsillectomy Additional Past Surgical History / Comment(s): LT HIP REPLACEMENT, PROSTATECTOMY , AICD GENERATOR CHANGE 02-01-14, TALITA CATARACTS, SX RT EYE FOR "BLEEDING BEHIND EYE" Additional Past Anesthesia/Blood Transfusion Reaction / Comment(s): PT HAD HALLUCINATIONS WITH EPIDURAL ANESTHESIA. Date of Last Stent Placement:: 1996 Type of Cardiac Device: AICD Device Placement Date:: 2005-MEDTRONIC- GENERATOR CHANGE 02-01-14 Past Psychological History: Anxiety, Depression Smoking Status: Former smoker Past Alcohol Use History: None Reported Past Drug Use History: None Reported - Past Family History Brother(s) Family Medical History: Cancer Additional Family Medical History / Comment(s): BRAIN BLEED, LUNG CA Sister(s) Family Medical History: Cancer Additional Family Medical History / Comment(s): BREAST, KIDNEY General Exam Limitations: no limitations General appearance: alert, in no apparent distress Head exam: Present: atraumatic, normocephalic Eye exam: Present: normal appearance, PERRL ENT exam: Present: normal exam Neck exam: Present: normal inspection. Absent: tenderness, meningismus Respiratory exam: Present: wheezes, rales. Absent: respiratory distress Cardiovascular Exam: Present: regular rate, irregular rhythm GI/Abdominal exam: Present: soft. Absent: distended, tenderness Extremities exam: Present: normal capillary refill, pedal edema Neurological exam: Present: alert, oriented X3, CN II-XII intact. Absent: motor sensory deficit Psychiatric exam: Present: normal affect, normal mood Skin exam: Present: warm, dry, intact. Absent: cyanosis, diaphoretic Course Vital Signs 03/30/18 03/30/18 13:25 14:47 Temperature 97.5 F L Pulse Rate 77 82 Respiratory 18 18 Rate Blood Pressure 109/76 107/67 O2 Sat by Pulse 96 96 Oximetry EKG Findings - EKG Comments: EKG Findings:: EKG: Atrial fibrillation with PVC, rate of 76, QRS duration 136, QTC 416, QTC 468, no ST segment elevation. Medical Decision Making - Medical Decision Making 77-year-old male presenting with worsening dyspnea. History is concerning for congestive heart failure. Chest x-ray obtained, does show venous congestion and pleural effusions, worse on the right. There is also concern for underlying infiltrate. Patient is given a dose of antibiotics in the emergency department for suspected pneumonia on top of CHF exacerbation. White blood cell count 3.6, hemoglobin is stable 12, INR is therapeutic. Creatinine 2.29 which is baseline for this patient. There is a mild troponin elevation although this is in the setting of both CHF and renal insufficiency patient has no chest pain and his INR is therapeutic. This level will be trended. BMP significant elevated at 12,000. Patient is given IV Lasix in the emergency department. He will be admitted for further treatment and evaluation. - Lab Data Result diagrams: 03/30/18 13:50 03/30/18 13:50 Lab Results 03/30/18 03/30/18 03/30/18 Range/Units 13:50 13:50 13:50 WBC 3.6 L (3.8-10.6) k/uL RBC 3.98 L (4.30-5.90) m/uL Hgb 12.0 L (13.0-17.5) gm/dL Hct 38.2 L (39.0-53.0) % MCV 95.9 (80.0-100.0) fL MCH 30.1 (25.0-35.0) pg MCHC 31.4 (31.0-37.0) g/dL RDW 15.4 (11.5-15.5) % PT (9.0-12.0) sec INR (<1.2) APTT (22.0-30.0) sec Sodium 139 (137-145) mmol/L Potassium 4.4 (3.5-5.1) mmol/L Chloride 101 (98-107) mmol/L Carbon Dioxide 27 (22-30) mmol/L Anion Gap 11 mmol/L BUN 46 H (9-20) mg/dL Creatinine 2.29 H (0.66-1.25) mg/dL Est GFR (CKD-EPI)AfAm 30 (>60 ml/min/1.73 sqM) Est GFR (CKD-EPI)NonAf 26 (>60 ml/min/1.73 sqM) Glucose 98 (74-99) mg/dL Calcium 9.8 (8.4-10.2) mg/dL Magnesium 2.3 (1.6-2.3) mg/dL Total Bilirubin 1.1 (0.2-1.3) mg/dL AST 33 (17-59) U/L ALT 29 (21-72) U/L Alkaline Phosphatase 85 (38-126) U/L Total Creatine Kinase 56 (55-170) U/L CK-MB (CK-2) 2.5 H (0.0-2.4) ng/mL CK-MB (CK-2) Rel Index 4.5 Troponin I 0.085 H* (0.000-0.034) ng/mL NT-Pro-B Natriuret Pep pg/mL Total Protein 6.6 (6.3-8.2) g/dL Albumin 3.6 (3.5-5.0) g/dL 03/30/18 03/30/18 Range/Units 13:50 13:50 WBC (3.8-10.6) k/uL RBC (4.30-5.90) m/uL Hgb (13.0-17.5) gm/dL Hct (39.0-53.0) % MCV (80.0-100.0) fL MCH (25.0-35.0) pg MCHC (31.0-37.0) g/dL RDW (11.5-15.5) % PT 26.2 H (9.0-12.0) sec INR 2.9 H (<1.2) APTT 34.4 H (22.0-30.0) sec Sodium (137-145) mmol/L Potassium (3.5-5.1) mmol/L Chloride (98-107) mmol/L Carbon Dioxide (22-30) mmol/L Anion Gap mmol/L BUN (9-20) mg/dL Creatinine (0.66-1.25) mg/dL Est GFR (CKD-EPI)AfAm (>60 ml/min/1.73 sqM) Est GFR (CKD-EPI)NonAf (>60 ml/min/1.73 sqM) Glucose (74-99) mg/dL Calcium (8.4-10.2) mg/dL Magnesium (1.6-2.3) mg/dL Total Bilirubin (0.2-1.3) mg/dL AST (17-59) U/L ALT (21-72) U/L Alkaline Phosphatase (38-126) U/L Total Creatine Kinase (55-170) U/L CK-MB (CK-2) (0.0-2.4) ng/mL CK-MB (CK-2) Rel Index Troponin I (0.000-0.034) ng/mL NT-Pro-B Natriuret Pep 01108 pg/mL Total Protein (6.3-8.2) g/dL Albumin (3.5-5.0) g/dL Disposition Clinical Impression: Renal insufficiency, Elevated troponin, CHF (congestive heart failure) Disposition: ADMITTED IP TO THIS HOSP Condition: Stable Is patient prescribed a controlled substance at d/c from ED?: No Referrals: Sudhir Coreas MD [Primary Care Provider] - 1-2 days Decision to Admit Reason: Admit from EC Decision Date: 03/30/18 Decision Time: 14:55
[2018-03-30 14:06] LABS: Basophils % (A) 1 %; Eosinophils # (A) 0.2 k/uL (0-0.7); Eosinophils % (A) 5 %; HCT 38.2 % (39.0-53.0); Hypochromasia Slight; Lymphocytes # (A) 0.5 k/uL (1.0-4.8); Lymphocytes % (A) 14 %; MCH 30.1 pg (25.0-35.0); MCHC 31.4 g/dL (31.0-37.0); MCV 95.9 fL (80.0-100.0); Mean Platelet Volume 7.4; Monocytes # (A) 0.4 k/uL (0-1.0); Monocytes % (A) 12 %; Neutrophils # (A) 2.4 k/uL (1.3-7.7); Neutrophils % (A) 67 %; Platelet Count 96 k/uL (150-450); RBC 3.98 m/uL (4.30-5.90); RDW 15.4 % (11.5-15.5); WBC 3.6 k/uL (3.8-10.6)
[2018-03-30 14:12] LABS: INR 2.9 (<1.2); Partial Thromboplastin Time 34.4 sec (22.0-30.0); Prothrombin Time 26.2 sec (9.0-12.0)
[2018-03-30 14:14] LABS: Albumin 3.6 g/dL (3.5-5.0); Calcium 9.8 mg/dL (8.4-10.2); Magnesium 2.3 mg/dL (1.6-2.3); Potassium 4.4 mmol/L (3.5-5.1); Total Bilirubin 1.1 mg/dL (0.2-1.3); Total Protein 6.6 g/dL (6.3-8.2)
--- NOTE | 2018-03-30 14:17 | XR ---
EXAMINATION TYPE: XR chest 2V DATE OF EXAM: 03/30/2018 COMPARISON: 11/05/2017 TECHNIQUE: PA and lateral views submitted. HISTORY: Difficulty breathing FINDINGS: There are bilateral pleural effusions and consolidation greater on the right. Cardiac device noted. N o pneumothorax. Hypertrophic change of the spine noted. IMPRESSION: 1. Bilateral infiltrate and pleural effusion greater on the right. Central venous congestion not excl uded.
[2018-03-30] MEDS ORDERED: FUROSEMIDE 10 MG/ML 4 ML VIAL IV STA (14:29)
[2018-03-30] MEDS ORDERED: cefTRIAXone IN SWFI 1,000 MG/10 ML SYRINGE IVP STA (14:30)
[2018-03-30] MEDS ORDERED: AZITHROMYCIN 500 MG in SODIUM CHLORIDE 0.9% 250 ML IVPB STA (14:30)
[2018-03-30 14:34] LABS: Creatine Kinase MB 2.5 ng/mL (0.0-2.4)
[2018-03-30 14:42] LABS: Troponin I 0.085 ng/mL (0.000-0.034)
[2018-03-30] MEDS ORDERED: ACETAMINOPHEN TAB 325 MG TAB PO PRN (14:50)
[2018-03-30] MEDS ORDERED: NALOXONE 0.4 MG/ML 1 ML VIAL IV PRN (14:50)
[2018-03-30 15:08] LABS: Anisocytosis (M) Present; Poikilocytosis (M) Present
[2018-03-30] MEDS ORDERED: NITROGLYCERIN SL TABS 0.4 MG TAB SUBLINGUAL PRN (16:25)
[2018-03-30] MEDS ORDERED: ARTIFICIAL TEARS-HYPROMELLOSE DROPS 15 ML BTL BOTH EYES PRN (16:25)
[2018-03-30] MEDS ORDERED: ACETAMINOPHEN TAB 500 MG TAB PO PRN (16:25)
[2018-03-30 16:42] LABS: Glucose,Whole Blood 102 mg/dL (75-99)
[2018-03-30] MEDS: CARVEDILOL 12.5 MG TAB PO SCH (17:29)
[2018-03-30] MEDS: WARFARIN 5 MG TAB PO SCH (17:29)
[2018-03-30 20:31] LABS: Creatine Kinase MB 2.3 ng/mL (0.0-2.4)
[2018-03-30 20:41] LABS: Troponin I 0.088 ng/mL (0.000-0.034)
[2018-03-30] MEDS: ATORVASTATIN 20 MG TAB PO SCH (20:43)
[2018-03-30] MEDS: GABAPENTIN 100 MG CAP PO SCH (20:43)
[2018-03-30] MEDS: ALPRAZolam 0.25 MG TAB PO PRN (22:05)
[2018-03-31] MEDS ORDERED: FUROSEMIDE 10 MG/ML 4 ML VIAL IV SCH
[2018-03-31 02:45] LABS: Creatine Kinase MB 2.4 ng/mL (0.0-2.4)
[2018-03-31 02:53] LABS: Troponin I 0.074 ng/mL (0.000-0.034)
--- NOTE | 2018-03-31 05:38 | HP ---
HISTORY AND PHYSICAL DATE OF ADMISSION AND SERVICE: 03/30/2018 PRESENTING COMPLAINT: Short of breath. HISTORY OF PRESENTING COMPLAINT: This is a 77-year-old patient who follows with Dr. Coreas and core checker Dr. Vasquez. The patient's chronic stable medical conditions include diabetes, hyperlipidemia, coronary artery disease, osteoarthritis, urinary incontinence. The patient also has known coronary artery disease with stent. The patient has been progressively getting short of breath for a course of 2 years. The patient also has a diagnosis of johnson's lung. The patient has got a decreased appetite, tired, run down. He has got a cough. Denies any fever. No obvious chills. Edema has gone up. He has been taking Lasix at home. He does have a CPAP machine. Tired and run down. REVIEW OF SYSTEMS: CONSTITUTIONAL: Weak and tired. HEENT: None. RESPIRATORY: As above. CARDIOVASCULAR: No chest pain. GASTROINTESTINAL: None. GENITOURINARY: None. MUSCULOSKELETAL: Some pain in the joints. DERMATOLOGICAL: None. HEMATOLOGIC: None. LYMPHATIC: None. PSYCHIATRY: None. NEUROLOGICAL: None. PAST MEDICAL HISTORY: Diabetes, hyperlipidemia, osteoarthritis, prostate disorder, obstructive sleep apnea, chronic kidney disease, stage IV, urinary incontinence, prostate cancer, osteoarthritis, weak left leg, johnson's lung. PAST SURGICAL HISTORY: Adenoidectomy, AICD, appendectomy, back surgery, cholecystectomy, cardiac cath with stent, prostate surgery, tonsillectomy, left hip replacement, prostatectomy, bilateral cataract surgery, surgery for bleeding behind the right eye. PAST PSYCH HISTORY: Anxiety, depression. SOCIAL HISTORY: Stopped smoking in the 60s. . Did crop farming. FAMILY HISTORY: Family history of lung cancer and brain bleed. HOME MEDICATIONS: 1. Januvia 50 mg p.o. daily. 2. Coumadin 5 mg on Friday and and 2.5 on Friday, Friday, Friday, Friday, Friday. 3. [place] spray 1 spray each nostril daily p.r.n. 4. Zocor 40 mg at bedtime. 5. Axid 150 mg p.o. daily. 6. Nitrostat 0.4 sublingual q.5 p.r.n. 7. Utibron 1 puff inhalation daily. 8. Neurontin 100 mg at bedtime. 9. Lasix 80 mg in the morning, 40 with supper. 10.Uloric 80 mg p.o. daily. 11.Colchicine 0.6 mg p.o. daily. 12.Coreg 12.5 p.o. b.i.d. 13.Artificial Tears 1 drop both eyes q.i.d. p.r.n. 14.Tylenol 500 mg q.4 to 6 p.r.n. ALLERGIES: Allergies to ALBUTEROL, AMOXICILLIN, BACLOFEN, CIPRO, AUGMENTIN, CODEINE, VOLTAREN, NORCO, LATEX, SULFA, ULTRAM. PHYSICAL EXAMINATION: On examination, temperature 97.5, pulse 77, respiratory 18, blood pressure 109/76, pulse ox 96% on room air. GENERAL APPEARANCE: Well built, BMI 35, lying in bed, tired appearing. EYES: Pupils equal. Conjunctivae normal. HENT: External appearance of the nose and ears normal. Oral cavity normal. NECK: JVD unable to assess. Mass not palpable. RESPIRATORY: Effort increased. LUNGS: Diminished breath sounds, some crackles. CARDIOVASCULAR: First and second sounds normal. Edema present. ABDOMEN: Soft, nontender. Liver and spleen not palpable. LYMPHATIC: No lymph node palpable in the neck or axillae PSYCHIATRY: Alert and oriented x3. Mood and affect normal. NEUROLOGICAL: Pupils equal. Cranial nerves grossly intact. Power and sensation grossly intact. INVESTIGATIONS: White count 3.6, hemoglobin 12, platelets 96. INR 2.9. Potassium 4.4. BUN 46, creatinine 2.29. Troponin 0.085. 0.088. ProBNP 12,000. Chest x-ray interpreted by me shows cardiomegaly, pulmonary congestion, pleural effusion. The patient's platelets back in January also was 97. ASSESSMENT: 1. Possibly acute on chronic congestive heart failure exacerbation, ejection fraction not known. 2. Chronic johnson's lung. 3. 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 4. Hyperlipidemia. 5. Coronary artery disease, prior history of stent. 6. Obstructive sleep apnea, CPAP machine. 7. Chronic urinary incontinence. 8. Primary osteoarthritis. 9. Chronic gout. 10.Coumadin monitoring. PLAN: At this point, we will start the patient on Lasix drip and doubt pneumonia. There is no fever or chills. There is no sputum production. Symptoms have been progressively coming on. We will order 2D echocardiogram, do not have a recent echocardiogram. Consultation made to Cardiology, pulmonary and Nephrology. Care was discussed with the patient. Questions were answered. We will also decrease patient's allopurinol 100 mg in the setting of renal failure and we will also hold off the colchicine in the setting of renal failure. Accu-Cheks will be followed. CHARLEEN / SIOBHANN: [id number] /
[2018-03-31] MEDS: CARVEDILOL 12.5 MG TAB PO SCH ×2 (06:30→19:04)
[2018-03-31 07:20] LABS: Calcium 9.5 mg/dL (8.4-10.2); INR 3.1 (<1.2); Potassium 3.8 mmol/L (3.5-5.1); Prothrombin Time 28.1 sec (9.0-12.0)
[2018-03-31] MEDS ORDERED: ALLOPURINOL 100 MG TAB PO SCH (09:00)
[2018-03-31] MEDS: ALLOPURINOL 100 MG TAB PO SCH (09:34)
[2018-03-31] MEDS: FAMOTIDINE 20 MG TAB PO SCH (09:35)
[2018-03-31] MEDS: COLCHICINE 0.6 MG EACH PO SCH (09:35)
[2018-03-31] MEDS: LINAGLIPTIN 5 MG TABLET PO SCH (09:35)
--- NOTE | 2018-03-31 11:40 | ECHOF ---
Referral Reason:chf MEASUREMENTS -------- HEIGHT: 177.8 cm WEIGHT: 110.2 kg BP: 110/66 RVIDd: 3.5 cm (< 3.3) IVSd: 1.3 cm (0.6 - 1.1) LVIDd: 6.2 cm (3.9 - 5.3) LVPWd: 1.5 cm (0.6 - 1.1) IVSs: 1.5 cm LVIDs: 5.2 cm LVPWs: 1.8 cm LA Diam: 4.8 cm (2.7 - 3.8) LAESV Index (A-L): 46.56 ml/m Ao Diam: 3.5 cm (2.0 - 3.7) AV Cusp: 1.4 cm (1.5 - 2.6) MV EXCURSION: 14.751 mm (> 18.000) MV EF SLOPE: 31 mm/s (70 - 150) EPSS: 2.1 cm MV E Melvin: 1.16 m/s MV DecT: 121 ms MV A Melvin: 0.26 m/s MV E/A Ratio: 4.54 AV maxP.43 mmHg AV meanP.35 mmHg RAP: 15.00 mmHg RVSP: 74.21 mmHg FINDINGS -------- Atrial fibrillation. This was a technically adequate study. The left ventricle is mildly dilated. There is moderate concentric left ventricular hypertrophy. Overall left ventricular systolic function is severely impaired with, an EF between 20 - 25 %. The right ventricle is mildly enlarged. LA is severely dilated >40 ml/m2 The right atrium is normal in size. 3 ml of [place] was utilized for enhancement of images. There is moderate to severe aortic valve sclerosis. There is moderate aortic stenosis present. Pe ak/mean gradient across the Aortic Valve is 23.43mmHg / 10.35mmHg. The mitral valve leaflets are mildly thickened. Mild mitral annular calcification present. Mild-t o-moderate mitral regurgitation is present. Moderate to severe tricuspid regurgitation present. There is severe pulmonary hypertension. The r ight ventricular systolic pressure, as measured by Doppler, is 74.21mmHg. Moderate pulmonic regurgitation. The aortic root size is normal. The inferior vena cava is dilated with no significant inspiratory collapse which is consistent estima margo right atrial pressure of >15 mmHg. There is no pericardial effusion. CONCLUSIONS -------- 1. Atrial fibrillation. 2. This was a technically adequate study. 3. The left ventricle is mildly dilated. 4. There is moderate concentric left ventricular hypertrophy. 5. Overall left ventricular systolic function is severely impaired with, an EF between 20 - 25 %. 6. The right ventricle is mildly enlarged. 7. LA is severely dilated >40 ml/m2 8. The right atrium is normal in size. 9. 3 ml of Lumason was utilized for enhancement of images. 10. There is moderate to severe aortic valve sclerosis. 11. There is moderate aortic stenosis present. 12. Peak/mean gradient across the Aortic Valve is 23.43mmHg / 10.35mmHg. 13. The mitral valve leaflets are mildly thickened. 14. Mild mitral annular calcification present. 15. [id number] mitral regurgitation is present. 16. Moderate to severe tricuspid regurgitation present. 17. There is severe pulmonary hypertension. 18. The right ventricular systolic pressure, as measured by Doppler, is 74.21mmHg. 19. Moderate pulmonic regurgitation. 20. The aortic root size is normal. 21. The inferior vena cava is dilated with no significant inspiratory collapse which is consistent es timated right atrial pressure of >15 mmHg. 22. There is no pericardial effusion. ANTIQUE FURNITURE REPRODUCER: Claudia Fatima RDCS
--- NOTE | 2018-03-31 11:46 | P.CNPUL ---
History of Present Illness Consult date: 03/31/18 Reason for consult: dyspnea History of present illness: 77-year-old male patient with multiple medical problems and comorbidities who got admitted yesterday because of worsening shortness of breath, exertional dyspnea and orthopnea to the point where the patient was unable to lay down flat. The patient at increased lower extremity edema. He had no chest pain. No pleurisy. No hemoptysis. No cough or sputum production and he denied having any fever or chills. The patient was taken Lasix in a total of 120 mg on a daily basis. He has been compliant to his outpatient medication. Chest x- ray on admission showed bilateral pleural effusion right more than left and the patient has central venous congestion in addition to a pacer/AICD over the left anterior chest area. There was troponin leak with troponin levels of 0.08 0.08 0.07 respectively 3. ProBNP level was 12,000. Note that this patient has history of COPD and his FEV1 is no other of 30% of predicted. He also has chronic systolic heart failure, obstructive sleep apnea and is been maintained on CPAP therapy at a pressure of 11 cm of water. The patient has severe SILVER with an AHI of 33 at Baseline. He is obese. He also suffers from chronic renal failure and he has chronic stage III kidney disease. His last available echocardiogram was from May 2016 and the patient was found to have moderate impairment of the LV function with an ejection fraction of 35-40% and there was elevated and Levaquin ventricular end-diastolic pressure and segmental wall motion abnormalities. There was also some mild to moderate degree of pulmonary hypertension. There is mild aortic stenosis condition. The patient has chronic atrial fibrillation and he is on long-term anticoagulation with warfarin. He is known to have also previous coronary artery disease and previous coronary intervention to his LAD. Currently, the patient is feeling slightly better is currently on Lasix drip and is producing adequate amount of urine output. He is less short of breath compared to yesterday. He also has been reported interstitial lung disease/Doshi's lung although the specifics of this diagnosis is not clear to me at this point. Review of Systems Constitutional: Reports daytime sleepiness, Reports fatigue, Reports lethargy, Reports poor appetite, Reports weakness, Reports weight gain Eyes: denies blurred vision, denies bulging eye, denies decreased vision Ears: deny: decreased hearing, ear discharge, earache, tinnitus Ears, nose, mouth and throat: Denies headache, Denies sore throat Cardiovascular: Reports decreased exercise tolerance, Reports dyspnea on exertion, Reports irregular heart beat, Reports leg edema, Reports paroxysmal nocturnal dyspnea, Reports shortness of breath Respiratory: Reports dyspnea, Reports home oxygen, Reports sleep apnea Gastrointestinal: Denies abdominal pain, Denies diarrhea, Denies nausea, Denies vomiting Genitourinary: Reports as per HPI Musculoskeletal: Reports muscle weakness Musculoskeletal: bilateral: ankle swelling, absent: ankle pain, ankle stiffness Integumentary: Denies pruritus, Denies rash Neurological: Reports weakness Psychiatric: Denies anxiety, Denies depression Endocrine: Reports fatigue, Reports increase in ring/shoe/hat size Allergic/Immunologic: Reports as per HPI Past Medical History Past Medical History: Cancer, COPD, CVA/TIA, Diabetes Mellitus, Hyperlipidemia, Myocardial Infarction ([place]), Osteoarthritis (OA), Prostate Disorder, Skin Disorder, Sleep Apnea/CPAP/BIPAP Additional Past Medical History / Comment(s): Coronary artery disease with previous stenting of the LAD, stage III chronic kidney disease, congestion heart failure with a previous ejection fraction of 35-40%, chronic atrial fibrillation, previous history of AICD placement, prostate cancer, obstructive sleep apnea with an AHI of 33 currently on CPAP at a pressure of 11 cm of water , 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, macular degeneration, gout, glaucoma, osteoarthritis with previous nerve impingement involving the neck, nephrolithiasis, chronic atrial fibrillation, gout, obesity Last Myocardial Infarction Date:: 1996 History of Any Multi-Drug Resistant Organisms: None Reported Past Surgical History: Adenoidectomy, AICD, Appendectomy, Back Surgery, Cholecystectomy, Heart Catheterization With Stent, Joint Replacement, Orthopedic Surgery, Prostate Surgery, Tonsillectomy Additional Past Surgical History / Comment(s): LT HIP REPLACEMENT, PROSTATECTOMY , AICD GENERATOR CHANGE 02-01-14, TALIAT CATARACTS, SX RT EYE FOR "BLEEDING BEHIND EYE" Additional Past Anesthesia/Blood Transfusion Reaction / Comment(s): PT HAD HALLUCINATIONS WITH EPIDURAL ANESTHESIA. Date of Last Stent Placement:: 1996 Type of Cardiac Device: AICD Device Placement Date:: 2005-[employer]pperTRONIC- GENERATOR CHANGE 02-01-14 Past Psychological History: Anxiety, Depression Additional Psychological History / Comment(s): easily depressed and very anxious Smoking Status: Former smoker Past Alcohol Use History: None Reported Additional Past Alcohol Use History / Comment(s): QUIT SMOKING 1960 Past Drug Use History: None Reported - Past Family History Brother(s) Family Medical History: Cancer Additional Family Medical History / Comment(s): BRAIN BLEED, LUNG CA Sister(s) Family Medical History: Cancer Additional Family Medical History / Comment(s): BREAST, KIDNEY Medications and Allergies Home Medications Medication Instructions Recorded Confirmed Type Simvastatin [Zocor] 40 mg PO HS 01/26/14 03/30/18 History sitaGLIPtin PHOSPHATE [Januvia] 50 mg PO DAILY #30 tab 05/23/16 03/30/18 Rx Acetaminophen Tab [Tylenol] 500 mg PO Q4-6H PRN 07/24/16 03/30/18 History Gabapentin [Neurontin] 100 mg PO HS 07/24/16 03/30/18 History Warfarin [Coumadin] 2.5 mg PO SUTUWEFRSA 07/24/16 03/30/18 History Warfarin [Coumadin] 5 mg PO MOTH 07/24/16 03/30/18 History Nizatidine [Axid] 150 mg PO DAILY 09/11/16 03/30/18 History Carvedilol [Coreg] 12.5 mg PO BID 10/28/17 03/30/18 History Colchicine [Colcrys] 0.6 mg PO DAILY 10/28/17 03/30/18 History Febuxostat [Uloric] 80 mg PO QAM 10/28/17 03/30/18 History Furosemide [Lasix] 40 mg PO W/SUPPER 10/28/17 03/30/18 History Indacaterol/Glycopyrrolate 1 puff INHALATION RT-DAILY@1300 10/28/17 03/30/18 History [Utibron Neohaler 27.5-15.6 Mcg] Nitroglycerin Sl Tabs [Nitrostat] 0.4 mg SUBLINGUAL Q5M PRN 10/28/17 03/30/18 History Artificial Tears-Hypromellose 1 drop BOTH EYES QID PRN 03/30/18 03/30/18 History [Artificial Tear Drops] Furosemide [Lasix] 80 mg PO QAM 03/30/18 03/30/18 History Sodium Chloride [[place]] 1 spray EA NOSTRIL DAILY PRN 03/30/18 03/30/18 History Allergies Allergy/AdvReac Type Severity Reaction Status Date / Time albuterol Allergy Dyspnea,estefania Verified 03/30/18 14:08 h amoxicillin [From Augmentin] Allergy Wheezing Verified 03/30/18 14:08 baclofen Allergy Dyspnea, Verified 03/30/18 14:08 face swelling and rash ciprofloxacin Allergy Rash/Hives Verified 03/30/18 14:08 / WHEEZING clavulanic acid Allergy Wheezing Verified 03/30/18 14:08 [From Augmentin] codeine Allergy Wheezing Verified 03/30/18 14:08 diclofenac sodium Allergy GI UPSET Verified 03/30/18 14:08 [From Voltaren] RASH/HIVES hydrocodone [From [place]] Allergy Nausea & Verified 03/30/18 14:08 Vomiting & Diarrhea latex Allergy Dyspnea, Verified 03/30/18 14:08 hives Sulfa (Sulfonamide Allergy Dyspnea/ESTEFANIA Verified 03/30/18 14:08 Antibiotics) H tramadol Allergy Hallucinati Verified 03/30/18 14:08 ons Physical Exam Vitals: Vital Signs Temp Pulse Pulse Resp BP BP Pulse Ox 03/31/18 04:00 97.6 F 56 L 18 110/66 97 03/31/18 00:00 97.0 F L 72 18 120/65 98 03/30/18 20:00 97.3 F L 72 18 114/78 98 03/30/18 15:31 95.7 F L 80 20 97/65 97 03/30/18 15:06 79 18 123/72 100 03/30/18 14:52 20 03/30/18 14:47 82 18 107/67 96 03/30/18 13:25 97.5 F L 77 18 109/76 96 Intake and Output 03/30/18 03/31/18 03/31/18 22:59 06:59 14:59 Intake Total 250 298 Output Total 300 Balance 250 -300 298 Intake: Intake, IV Titration 250 Amount Azithromycin 500 mg In 250 Sodium Chloride 0.9% 250 ml @ 250 mls/hr IVPB ONCE STA Rx#:[id number] Oral 298 Output: Urine 300 Other: Voiding Method Toilet Toilet Urinal Urinal # Voids 1 1 Weight 110.5 kg 110.6 kg Gen. appearance a mild degree of respiratory distress even at rest and the patient had difficulties and laying down flat in bed. He is obese. Head exam was generally normal. There was no scleral icterus or corneal arcus. Mucous membranes were moist. Neck was supple and with jugular venous distension, thyromegaly, or carotid bruits. Carotids were easily palpable bilaterally. There was no adenopathy. The patient undergone UPPP regarding a previous obstructive sleep apnea diagnosis. He does have some mild JVDs. Lung sounds are diminished in the lung bases and there are some bibasilar crackles. Heart sounds are irregular, positive sinus and there is no significant murmurs appreciated. Abdomen is obese soft nontender. Organs cannot be accurately palpated. No direct tenderness amount of solid guarding. Extremities revealed +1-2 pitting edema there is no cyanosis or clubbing. No wounds or sores. Examination of the skin revealed no evidence of significant rashes, suspicious appearing nevi or other concerning lesions. Neurologically awake and alert and there is no focal neurological deficit at this point. Results - Laboratory Findings CBC and BMP: 03/30/18 13:50 03/31/18 06:50 PT/INR, D-dimer PT 28.1 sec (9.0-12.0) H 03/31/18 06:50 INR 3.1 (<1.2) H 03/31/18 06:50 Abnormal lab findings: Abnormal Labs 03/30/18 03/30/18 03/30/18 13:50 13:50 13:50 WBC 3.6 L RBC 3.98 L Hgb 12.0 L Hct 38.2 L Plt Count 96 L Lymphocytes # 0.5 L PT INR APTT BUN 46 H Creatinine 2.29 H POC Glucose (mg/dL) Total Creatine Kinase CK-MB (CK-2) 2.5 H Troponin I 0.085 H* 03/30/18 03/30/18 03/30/18 13:50 16:36 19:43 WBC RBC Hgb Hct Plt Count Lymphocytes # PT 26.2 H INR 2.9 H APTT 34.4 H BUN Creatinine POC Glucose (mg/dL) 102 H Total Creatine Kinase 53 L CK-MB (CK-2) Troponin I 0.088 H* 03/31/18 03/31/18 03/31/18 01:55 06:50 06:50 WBC RBC Hgb Hct Plt Count Lymphocytes # PT 28.1 H INR 3.1 H APTT BUN 50 H Creatinine 2.61 H POC Glucose (mg/dL) Total Creatine Kinase 52 L CK-MB (CK-2) Troponin I 0.074 H* - Diagnostic Findings Chest x-ray: image reviewed Assessment and Plan Plan: Assessment 1 acute exacerbation of chronic systolic heart failure 2 exertional dyspnea and orthopnea and increased lower extremity edema secondary to above 3 CHF with a previous ejection fraction of 35% based on echocardiogram from May 2016 4 coronary artery disease with previous coronary intervention and stenting of the LAD 5 mild aortic stenosis 6 chronic stage III kidney disease 7 chronic atrial fibrillation maintained on warfarin on outpatient basis 8 hypertension 9 hyperlipidemia 10 remote history of CVA followed by seizure currently inactive in stable 11 obstructive sleep apnea maintained on CPAP at a pressure of 11 cm of water. The patient is post UPPP 12 depression 13 COPD 14 obesity 15 troponin leak Plan I checked the patient's CPAP machine. The treatment is successful at the pressure of 11 cm of water patient has been compliant demonstrating adequate number of hours of CPAP use per night. Agree on a Lasix drip to optimize his CHF and signs of fluid overload. Will need obviously a repeat echocardiogram to evaluate LV function. Cardiology to comment on the troponin leak and the possibility of this patient having a acute non-STEMI. He is feeling any chest pain. His main complaint remains shortness of breath which is obviously related to decompensated heart failure. COPD stable. No signs of any COPD exacerbation at this point in time. Daily PT/INR monitoring. We'll continue to follow.
[2018-03-31 13:06] VITALS: BMI 34.9
--- NOTE | 2018-03-31 14:54 | P.CRDCN ---
History of Present Illness Consult date: 03/31/18 Requesting physician: Darrius Davis Consult reason: congestive heart failure Chief complaint: Shortness of breath History of present illness: This is a 77-year-old gentleman who follows with Dr. Hernández in the office. 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 History of, hyperlipidemia, prior CVA. Presents to the hospital with symptoms of progressively worsening shortness of breath over a couple of weeks duration. Positive PND and orthopnea, positive peripheral edema. Chest x-ray performed on arrival here showed bilateral infiltrate and pleural effusion greater on the right, central venous congestion evident. EKG on arrival here showed atrial fibrillation with a controlled ventricular response. Blood pressure 118/60 with a heart rate in the 70s, afebrile. White blood cell count 3.6, hemoglobin 12.0, platelet count 96. PTT 28.1, INR 3.1. Sodium 139, potassium 3.8, BUN 50 , creatinine 2.6. BNP level on admission 12,000. Troponin 0.085, 0.088, 0.074. Troponin abnormality not consistent with acute coronary syndrome, likely secondary to demand mismatch. Patient was initiated on IV Lasix drip, he does state that he's been putting out good urine since this was initiated. Continues to have bilateral peripheral edema. Past Medical History Past Medical History: Cancer, COPD, CVA/TIA, Diabetes Mellitus, Hyperlipidemia, Myocardial Infarction ([place]), Osteoarthritis (OA), Prostate Disorder, Skin Disorder, Sleep Apnea/CPAP/BIPAP Additional Past Medical History / Comment(s): Coronary artery disease with previous stenting of the LAD, stage III chronic kidney disease, congestion heart failure with a previous ejection fraction of 35-40%, chronic atrial fibrillation, previous history of AICD placement, prostate cancer, obstructive sleep apnea with an AHI of 33 currently on CPAP at a pressure of 11 cm of water , 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, macular degeneration, gout, glaucoma, osteoarthritis with previous nerve impingement involving the neck, nephrolithiasis, chronic atrial fibrillation, gout, obesity Last Myocardial Infarction Date:: 1996 History of Any Multi-Drug Resistant Organisms: None Reported Past Surgical History: Adenoidectomy, AICD, Appendectomy, Back Surgery, Cholecystectomy, Heart Catheterization With Stent, Joint Replacement, Orthopedic Surgery, Prostate Surgery, Tonsillectomy Additional Past Surgical History / Comment(s): LT HIP REPLACEMENT, PROSTATECTOMY , AICD GENERATOR CHANGE 02-01-14, TALITA CATARACTS, SX RT EYE FOR "BLEEDING BEHIND EYE" Additional Past Anesthesia/Blood Transfusion Reaction / Comment(s): PT HAD HALLUCINATIONS WITH EPIDURAL ANESTHESIA. Date of Last Stent Placement:: 1996 Type of Cardiac Device: AICD Device Placement Date:: 2005-MEDTRONIC- GENERATOR CHANGE 02-01-14 Past Psychological History: Anxiety, Depression Additional Psychological History / Comment(s): easily depressed and very anxious Smoking Status: Former smoker Past Alcohol Use History: None Reported Additional Past Alcohol Use History / Comment(s): QUIT SMOKING 1960 Past Drug Use History: None Reported - Past Family History Brother(s) Family Medical History: Cancer Additional Family Medical History / Comment(s): BRAIN BLEED, LUNG CA Sister(s) Family Medical History: Cancer Additional Family Medical History / Comment(s): BREAST, KIDNEY Medications and Allergies Home Medications Medication Instructions Recorded Confirmed Type Simvastatin [Zocor] 40 mg PO HS 01/26/14 03/30/18 History sitaGLIPtin PHOSPHATE [Januvia] 50 mg PO DAILY #30 tab 05/23/16 03/30/18 Rx Acetaminophen Tab [Tylenol] 500 mg PO Q4-6H PRN 07/24/16 03/30/18 History Gabapentin [Neurontin] 100 mg PO HS 07/24/16 03/30/18 History Warfarin [Coumadin] 2.5 mg PO SUTUWEFRSA 07/24/16 03/30/18 History Warfarin [Coumadin] 5 mg PO MOTH 07/24/16 03/30/18 History Nizatidine [Axid] 150 mg PO DAILY 09/11/16 03/30/18 History Carvedilol [Coreg] 12.5 mg PO BID 10/28/17 03/30/18 History Colchicine [Colcrys] 0.6 mg PO DAILY 10/28/17 03/30/18 History Febuxostat [Uloric] 80 mg PO QAM 10/28/17 03/30/18 History Furosemide [Lasix] 40 mg PO W/SUPPER 10/28/17 03/30/18 History Indacaterol/Glycopyrrolate 1 puff INHALATION RT-DAILY@1300 10/28/17 03/30/18 History [Utibron Neohaler 27.5-15.6 Mcg] Nitroglycerin Sl Tabs [Nitrostat] 0.4 mg SUBLINGUAL Q5M PRN 10/28/17 03/30/18 History Artificial Tears-Hypromellose 1 drop BOTH EYES QID PRN 03/30/18 03/30/18 History [Artificial Tear Drops] Furosemide [Lasix] 80 mg PO QAM 03/30/18 03/30/18 History Sodium Chloride [[place]] 1 spray EA NOSTRIL DAILY PRN 03/30/18 03/30/18 History Allergies Allergy/AdvReac Type Severity Reaction Status Date / Time albuterol Allergy Dyspnea,estefania Verified 03/30/18 14:08 h amoxicillin [From Augmentin] Allergy Wheezing Verified 03/30/18 14:08 baclofen Allergy Dyspnea, Verified 03/30/18 14:08 face swelling and rash ciprofloxacin Allergy Rash/Hives Verified 03/30/18 14:08 / WHEEZING clavulanic acid Allergy Wheezing Verified 03/30/18 14:08 [From Augmentin] codeine Allergy Wheezing Verified 03/30/18 14:08 diclofenac sodium Allergy GI UPSET Verified 03/30/18 14:08 [From Voltaren] RASH/HIVES hydrocodone [From [place]] Allergy Nausea & Verified 03/30/18 14:08 Vomiting & Diarrhea latex Allergy Dyspnea, Verified 03/30/18 14:08 hives Sulfa (Sulfonamide Allergy Dyspnea/ESTEFANIA Verified 03/30/18 14:08 Antibiotics) H tramadol Allergy Hallucinati Verified 03/30/18 14:08 ons Physical Exam Vitals: Vital Signs Temp Pulse Pulse Resp BP BP Pulse Ox 03/31/18 04:00 97.6 F 56 L 18 110/66 97 03/31/18 00:00 97.0 F L 72 18 120/65 98 03/30/18 20:00 97.3 F L 72 18 114/78 98 03/30/18 15:31 95.7 F L 80 20 97/65 97 03/30/18 15:06 79 18 123/72 100 03/30/18 14:52 20 03/30/18 14:47 82 18 107/67 96 03/30/18 13:25 97.5 F L 77 18 109/76 96 Intake and Output 03/30/18 03/31/18 03/31/18 22:59 06:59 14:59 Intake Total 250 298 Output Total 300 Balance 250 -300 298 Intake: Intake, IV Titration 250 Amount Azithromycin 500 mg In 250 Sodium Chloride 0.9% 250 ml @ 250 mls/hr IVPB ONCE STA Rx#:[id number] Oral 298 Output: Urine 300 Other: Voiding Method Toilet Toilet Urinal Urinal # Voids 1 1 Weight 110.5 kg 110.6 kg 110.6 kg PHYSICAL EXAMINATION: GENERAL: 77-year-old gentleman in no acute distress at this time of my examination HEENT: Head is atraumatic, normocephalic. Pupils equal, round. Sclera anicteric. Conjunctiva are clear. Mucous membranes of the mouth are moist. Neck is supple. There is elevated jugular venous pressure. No carotid bruit is heard. HEART EXAMINATION: Heart S1-S2 irregularly irregular a systolic ejection murmur is heard at the base CHEST EXAMINATION: Lungs reveal crackles bilaterally with diminished air entry to the bases, right greater than left. ABDOMEN: Soft, nontender. Bowel sounds are heard. No organomegaly noted. EXTREMITIES: 2+ peripheral pulses with 2+ evidence of peripheral edema and no calf tenderness noted. NEUROLOGIC patient is awake, alert and oriented ?-3. . Results 03/30/18 13:50 03/31/18 06:50 Cardiac Enzymes 03/30/18 03/30/18 03/30/18 Range/Units 13:50 13:50 19:43 AST 33 (17-59) U/L CK-MB (CK-2) 2.5 H 2.3 (0.0-2.4) ng/mL Troponin I 0.085 H* 0.088 H* (0.000-0.034) ng/mL 03/31/18 Range/Units 01:55 AST (17-59) U/L CK-MB (CK-2) 2.4 (0.0-2.4) ng/mL Troponin I 0.074 H* (0.000-0.034) ng/mL Coagulation 03/30/18 03/31/18 Range/Units 13:50 06:50 PT 26.2 H 28.1 H (9.0-12.0) sec APTT 34.4 H (22.0-30.0) sec CBC 03/30/18 Range/Units 13:50 WBC 3.6 L (3.8-10.6) k/uL RBC 3.98 L (4.30-5.90) m/uL Hgb 12.0 L (13.0-17.5) gm/dL Hct 38.2 L (39.0-53.0) % Plt Count 96 L (150-450) k/uL Comprehensive Metabolic Panel 03/30/18 03/31/18 Range/Units 13:50 06:50 Sodium 139 139 (137-145) mmol/L Potassium 4.4 3.8 (3.5-5.1) mmol/L Chloride 101 102 (98-107) mmol/L Carbon Dioxide 27 28 (22-30) mmol/L BUN 46 H 50 H (9-20) mg/dL Creatinine 2.29 H 2.61 H (0.66-1.25) mg/dL Glucose 98 85 (74-99) mg/dL Calcium 9.8 9.5 (8.4-10.2) mg/dL AST 33 (17-59) U/L ALT 29 (21-72) U/L Alkaline Phosphatase 85 (38-126) U/L Total Protein 6.6 (6.3-8.2) g/dL Albumin 3.6 (3.5-5.0) g/dL Current Medications Generic Name Dose Route Start Last Admin Trade Name Freq PRN Reason Stop Dose Admin Acetaminophen 650 mg 03/30/18 14:50 Tylenol Tab PO Q6HR PRN Mild Pain or Fever > 100.5 Allopurinol 100 mg 03/31/18 09:00 03/31/18 09:34 Zyloprim PO 100 mg DAILY IRMA Administration Alprazolam 0.25 mg 03/30/18 17:04 03/30/18 22:05 Xanax PO 0.25 mg HS PRN Administration Anxiety Artificial Tears 1 drops 03/30/18 16:25 Artificial Tear Drops BOTH EYES QID PRN Dry Eye(s) Atorvastatin Calcium 20 mg 03/30/18 21:00 03/30/18 20:43 Lipitor PO 20 mg HS IRMA Administration Carvedilol 12.5 mg 03/30/18 17:30 03/31/18 06:30 Coreg PO 12.5 mg BID-W/MEALS IRMA Administration Colchicine 0.6 mg 03/31/18 09:00 03/31/18 09:35 Colcrys PO 0.6 mg DAILY IRMA Administration Famotidine 20 mg 03/31/18 09:00 03/31/18 09:35 Pepcid PO 20 mg DAILY IRMA Administration Gabapentin 100 mg 03/30/18 21:00 03/30/18 20:43 Neurontin PO 100 mg HS IRMA Administration Furosemide 250 mg/ Sodium 250 mls @ 10 mls/hr 03/30/18 23:00 03/31/18 00:00 Chloride IVP 10 mg/hr .Q24H IRMA 10 mls/hr Administration 10 MG/HR Linagliptin 5 mg 03/31/18 09:00 03/31/18 09:35 Tradjenta PO 5 mg DAILY IRMA Administration Naloxone HCl 0.2 mg 03/30/18 14:50 Narcan IV Q2M PRN Opioid Reversal Nitroglycerin 0.4 mg 03/30/18 16:25 Nitrostat SUBLINGUAL Q5M PRN Chest Pain Non-Formulary Medication 1 puff 03/31/18 13:00 Indacaterol/Glycopyrrolate [Utibron Neohaler 27.5-15.6 Mcg] INHALATION RT-DAILY@1300 [facility] Warfarin Sodium 5 mg 03/30/18 18:00 03/30/18 17:29 Coumadin PO 5 mg MOTH IRMA Administration Warfarin Sodium 2.5 mg 03/31/18 18:00 Coumadin PO SUTUWEFRSA [facility] Intake and Output 03/30/18 03/31/18 03/31/18 22:59 06:59 14:59 Intake Total 250 298 Output Total 300 Balance 250 -300 298 Intake: Intake, IV Titration 250 Amount Azithromycin 500 mg In 250 Sodium Chloride 0.9% 250 ml @ 250 mls/hr IVPB ONCE STA Rx#:[id number] Oral 298 Output: Urine 300 Other: Voiding Method Toilet Toilet Urinal Urinal # Voids 1 1 Weight 110.5 kg 110.6 kg 110.6 kg Patient Weight 04/01/18 06:59 Weight 110.6 kg 03/30/18 13:50 03/31/18 06:50 EKG Interpretations (text) EKG shows atrial fibrillation with a controlled ventricular response Assessment and Plan Plan: Assessment and plan #1 systolic congestive heart failure acute on chronic #2 chronic persistent atrial fibrillation, on Eliquis for anticoagulation #3 acute on chronic renal insufficiency #4 known history of coronary artery disease with prior revascularization of the mid LAD in 1996 #4 ischemic cardio myopathy with prior AICD implant #5 hypertension #6 hyperlipidemia #7 abnormal troponins, not consistent with acute coronary syndrome, likely secondary to supply demand mismatch. #8 sleep apnea Plan We will continue patient on his current medications, continue IV Lasix drip, continue to monitor intake and output along with daily weights and daily lytes BUN and creatinine. DNP note has been reviewed, I agree with a documented findings and plan of care. Patient was seen and examined.
[2018-03-31] MEDS: INDACATEROL INHALATION SCH (15:19)
[2018-03-31] MEDS: GLYCOPYRROLATE INHALATION SCH (15:19)
[2018-03-31] MEDS: WARFARIN 2.5 MG TAB PO SCH (19:04)
[2018-03-31] MEDS: FUROSEMIDE 250 MG in SODIUM CHLORIDE 0.9% 225 ML IVP SCH ×3 (20:07)
[2018-03-31] MEDS: GABAPENTIN 100 MG CAP PO SCH (20:07)
[2018-03-31] MEDS: ATORVASTATIN 20 MG TAB PO SCH (20:07)
[2018-03-31 21:00] LABS: Appearance,Urine Clear (Clear); Bacteria,Urine Rare /hpf; Bilirubin,Urine Negative (Negative); Blood,Urine Negative (Negative); Color,Urine Light Yellow; Glucose,Urine (UA) Negative (Negative); Hyaline Casts,Urine 6 /lpf (0-2); Ketones,Urine Negative (Negative); Leukocyte Esterase,Urine Negative (Negative); Mucus,Urine Rare /hpf; Nitrite,Urine Negative (Negative); Protein,Urine 1+ (Negative); RBC,Urine 1 /hpf (0-5); Specific Gravity,Urine 1.008 (1.001-1.035); Squamous Epithelial Cell,Urine <1 /hpf (0-4); Urobilinogen,Urine <2.0 mg/dL (<2.0); WBC,Urine 1 /hpf (0-5)
--- NOTE | 2018-03-31 21:00 | PN ---
PROGRESS NOTE DATE OF SERVICE: 04/11/2018. PRESENTING COMPLAINT: Short of breath. INTERVAL HISTORY: This is a patient who presented with CHF exacerbation. He had been on Lasix drip. Feeling a bit better. Making urine. Patient's family is at the bedside, including his daughter and . Patient did tolerate some diet. REVIEW OF SYSTEMS: Done for constitutional, cardiovascular, GI, pulmonary; relevant findings as above. CURRENT MEDICATIONS: Current medications include IV Lasix drip. PHYSICAL EXAMINATION: Temperature 96.7, pulse 63, respiration 18, blood pressure 130/65, pulse ox 91% on 3 L. GENERAL APPEARANCE: Lying in bed, tired-appearing. EYES: Pupils equal. Conjunctivae normal. HEENT: External appearance of nose and ears normal. Oral cavity normal. NECK: JVD unable to assess. Mass not palpable. RESPIRATORY: Effort increased. LUNGS: Decreased breath sounds with crackles. CARDIOVASCULAR: First and second sounds normal. Edema present. ABDOMEN: Soft, non-tender. Liver and spleen not palpable. PSYCHIATRY: Alert and oriented x3. Mood and affect normal. INVESTIGATIONS: INR 3.1, BUN 50, creatinine 2.61. ASSESSMENT: 1. Acute on chronic congestive heart failure from systolic dysfunction. Ejection fraction was 35% to 40% in 2016. 2. Moderate mitral regurgitation, non-rheumatic. 3. Chronic johnson's lung. 4. Chronic kidney disease, stage III, from nephrosclerosis. 5. Hyperlipidemia. 6. Coronary artery disease with prior history of stent. 7. Obstructive sleep apnea; uses CPAP. 8. Chronic urine incontinence. 9. Primary osteoarthritis. 10.Chronic gout. 11.Coumadin monitoring. 12.Persistent atrial fibrillation, for which patient is on Coumadin. 13.Moderate aortic stenosis, non-rheumatic. 14.Moderate to severe tricuspid regurgitation, non-rheumatic. 15.Severe secondary pulmonary hypertension, probably secondary to johnson's lung and congestive heart failure. PLAN: At this point, continue patient on Lasix drip. Keep a very close eye on patient's renal function. Cardiology and Pulmonary were consulted. The patient actually did have a 2-D echocardiogram earlier today that shows an EF of 20% to 25% and also showing moderate aortic stenosis, moderate to severe tricuspid regurgitation and severe pulmonary hypertension. Prognosis guarded. Follow closely. Patient has underlying atrial fibrillation. Prognosis guarded. MMODL / IJN: [id number] /
[2018-03-31] MEDS: ALPRAZolam 0.25 MG TAB PO PRN (21:47)
--- NOTE | 2018-03-31 22:59 | CONS ---
CONSULTATION REASON FOR CONSULT: Renal failure. HISTORY OF PRESENT ILLNESS: Patient is a 77-year-old male with a history of hypertension, COPD, CHF, atrial fibrillation and underlying chronic lung disease. Patient was admitted to the hospital with worsening shortness of breath which had been going on for about a month now, and it was progressively getting worse. Patient noticed his leg swelling had been increasing and it was getting hard for him to lie flat. He denied any fevers or chills. No chest pains. No nausea, vomiting, abdominal pain or diarrhea. Serum creatinine was 2.29 mg/dL on admission. Previously we have a creatinine of about 1.8 to 2 mg/dL all the way back to 2017. Patient's chest x-ray showed evidence off CHF and he is currently maintained on Lasix drip at 10 mg/hour. Serum creatinine today is at 2.6 mg/dL. Urine output is not accurately charted. We have about 300 mL of urine. PAST MEDICAL HISTORY: 1. Chronic kidney disease. 2. CHF. 3. Hypertension. 4. Atrial fibrillation. 5. CKD stage IV with baseline creatinine 1.8 to 2 mg/dL. 6. Gout. 7. Neuropathy. 8. Hyperlipidemia. 9. Obstructive sleep apnea. 10.History of prostatic cancer. 11.CVA. 12.History of seizure after CVA. 13.Glaucoma. 14.Spinal stenosis, cervical. 15.Nephrolithiasis. 16.Anxiety, depression. PAST SURGICAL HISTORY: 1. Appendectomy. 2. AICD placement. 3. Back surgery. 4. Cholecystectomy. 5. Cardiac catheterization. 6. Coronary stent placement. 7. Left hip arthroplasty. 8. Prostatectomy. 9. Cataract surgery. 10.Tonsillectomy. 11.Eye surgery for bleeding in the eye. SOCIAL HISTORY: Patient is a former smoker. No history of drug abuse or alcohol abuse. MEDICATIONS AT HOME: 1. Zocor. 2. Tylenol. 3. Neurontin. 4. Coumadin. 5. Axid. 6. Coreg. 7. Uloric. 8. Colcrys. 9. Lasix. 10.Januvia. ALLERGIES: Allergies are multiple and include: 1. ALBUTEROL. 2. AMOXICILLIN. 3. BACLOFEN. 4. CIPROFLOXACIN. 5. AUGMENTIN. 6. VOLTAREN. 7. NORCO. 8. LATEX. 9. SULFA. 10.TRAMADOL. REVIEW OF SYSTEMS: As per HPI. Other systems negative. PHYSICAL EXAMINATION: Patient is comfortable, awake, alert, oriented x3, not in any acute distress. Blood pressure is 118/64, heart rate 77 per minute. Patient is afebrile. EXAMINATION OF THE HEART: S1, S2. EXAMINATION OF LUNGS: Bilateral breath sounds are heard. Decreased breath sounds at the bases. ABDOMEN: Soft, non-tender. Examination of lower extremities shows edema 2+ bilaterally. INSTRUMENT L[employer] INSPECTOR exam is grossly intact. LABS: Sodium 139, potassium 3.8, BUN 50, serum creatinine 2.6, hemoglobin 12.0 g/dL. Troponin 0.074. Albumin is 3.6. Chest x-ray showed bilateral infiltrate, pleural effusion, right more than left. ASSESSMENT: 1. Acute kidney injury, cardiorenal. Patient is maintained on a Lasix drip. We need to get accurate I&O. I will switch the Lasix drip to IV push Lasix tomorrow. Avoid hypotension. Blood pressure is slightly on the lower side. I will decrease the dose of Coreg. 2. History of gout/hyperuricemia, maintained on allopurinol, which has been appropriately decreased. 3. Type 2 diabetes, maintained on Tradjenta. 4. Chronic kidney disease, stage IV, secondary to nephrosclerosis. Check urinalysis. PLAN: Continue diuresis. Switch to IV push Lasix tomorrow. Monitor urine output accurately. Check urinalysis. Decrease Coreg to avoid hypotension during diuresis. Thank you for this consultation. Will continue to follow the patient with you during his hospitalization. MMODL / IJN: [id number] /
[2018-04-01 06:30] LABS: INR 3.3 (<1.2)
[2018-04-01 06:33] LABS: Calcium 9.4 mg/dL (8.4-10.2); Magnesium 2.1 mg/dL (1.6-2.3); Potassium 4.1 mmol/L (3.5-5.1)
[2018-04-01] MEDS: CARVEDILOL 3.125 MG TAB PO SCH ×2 (06:59→16:52)
[2018-04-01] MEDS: ALLOPURINOL 100 MG TAB PO SCH (09:44)
[2018-04-01] MEDS: FAMOTIDINE 20 MG TAB PO SCH (09:44)
[2018-04-01] MEDS: COLCHICINE 0.6 MG EACH PO SCH (09:44)
[2018-04-01] MEDS: LINAGLIPTIN 5 MG TABLET PO SCH (09:44)
--- NOTE | 2018-04-01 10:20 | XR ---
EXAMINATION TYPE: XR chest 2V DATE OF EXAM: 04/01/2018 COMPARISON: Prior chest x-ray 03/30/2018 HISTORY: Congestive heart failure TECHNIQUE: Frontal and lateral views of the chest are obtained. FINDINGS: Intracardiac defibrillator leads are again noted, generator in the left pectoral region. N o evident pneumothorax. Increased density at the right lung base obscures the right hemidiaphragm. He art size is obscured but thought to be enlarged. Patchy basilar density again noted on the left. [place] ent is rotated. Calcification present in the posterior chest may be indicative of underlying granulom atous change, calcified mediastinal hilar node. IMPRESSION: Findings are similar to prior exam. Probable right lower lobe atelectasis and associated effusion versus edema, correlate to exclude pneumonia. Suspect cardiomegaly, possible old granulomat ous disease.
--- NOTE | 2018-04-01 10:57 | P.PN ---
Subjective Progress Note Date: 04/01/18 77-year-old male patient with multiple medical problems and comorbidities who got admitted yesterday because of worsening shortness of breath, exertional dyspnea and orthopnea to the point where the patient was unable to lay down flat. The patient at increased lower extremity edema. He had no chest pain. No pleurisy. No hemoptysis. No cough or sputum production and he denied having any fever or chills. The patient was taken Lasix in a total of 120 mg on a daily basis. He has been compliant to his outpatient medication. Chest x- ray on admission showed bilateral pleural effusion right more than left and the patient has central venous congestion in addition to a pacer/AICD over the left anterior chest area. There was troponin leak with troponin levels of 0.08 0.08 0.07 respectively 3. ProBNP level was 12,000. Note that this patient has history of COPD and his FEV1 is no other of 30% of predicted. He also has chronic systolic heart failure, obstructive sleep apnea and is been maintained on CPAP therapy at a pressure of 11 cm of water. The patient has severe SILVER with an AHI of 33 at Baseline. He is obese. He also suffers from chronic renal failure and he has chronic stage III kidney disease. His last available echocardiogram was from May 2016 and the patient was found to have moderate impairment of the LV function with an ejection fraction of 35-40% and there was elevated and Levaquin ventricular end-diastolic pressure and segmental wall motion abnormalities. There was also some mild to moderate degree of pulmonary hypertension. There is mild aortic stenosis condition. The patient has chronic atrial fibrillation and he is on long-term anticoagulation with warfarin. He is known to have also previous coronary artery disease and previous coronary intervention to his LAD. Currently, the patient is feeling slightly better is currently on Lasix drip and is producing adequate amount of urine output. He is less short of breath compared to yesterday. He also has been reported interstitial lung disease/Doshi's lung although the specifics of this diagnosis is not clear to me at this point. The patient is seen again today 04/01/2018 in follow-up on the selective care unit. He is currently sitting up in a chair at the bedside. He is awake and alert in no acute distress. He is breathing easier today as compared to yesterday. He remains on a Lasix drip at 10 mg per hour. Creatinine 2.5. INR 3.3. He remains afebrile. O2 saturation 90% on room air. Remains in A. fib. Edema is improving. Objective - Vital Signs Vital signs: Vital Signs Temp 96.8 F L 04/01/18 03:50 Pulse 76 04/01/18 03:50 Resp 20 04/01/18 03:50 BP 133/70 04/01/18 03:50 Pulse Ox 90 L 04/01/18 03:50 Intake & Output 03/31/18 04/01/18 04/01/18 18:59 06:59 18:59 Intake Total 578 201.167 Output Total 525 Balance 578 -323.833 Weight 110.6 kg 111.7 kg Intake: Intake, IV Titration 201.167 Amount Furosemide 250 mg In 201.167 Sodium Chloride 0.9% 225 ml @ 10 MG/HR 10 mls/hr IVP .Q24H IRMA Rx#: [id number] Oral 578 Output: Urine 525 Other: Voiding Method Toilet Urinal # Voids 1 - Exam Gen. appearance a mild degree of respiratory distress even at rest and the patient had difficulties and laying down flat in bed. He is obese. Head exam was generally normal. There was no scleral icterus or corneal arcus. Mucous membranes were moist. Neck was supple and with jugular venous distension, thyromegaly, or carotid bruits. Carotids were easily palpable bilaterally. There was no adenopathy. The patient undergone UPPP regarding a previous obstructive sleep apnea diagnosis. He does have some mild JVDs. Lung sounds are diminished in the lung bases and there are some bibasilar crackles. Heart sounds are irregular, positive sinus and there is no significant murmurs appreciated. Abdomen is obese soft nontender. Organs cannot be accurately palpated. No direct tenderness amount of solid guarding. Extremities revealed +1-2 pitting edema there is no cyanosis or clubbing. No wounds or sores. Examination of the skin revealed no evidence of significant rashes, suspicious appearing nevi or other concerning lesions. Neurologically awake and alert and there is no focal neurological deficit at this point. - Labs CBC & Chem 7: 03/30/18 13:50 04/01/18 05:35 Labs: Abnormal Lab Results - Last 24 Hours (Table) 03/31/18 04/01/18 04/01/18 Range/Units 20:23 05:35 05:35 PT 30.0 H (9.0-12.0) sec INR 3.3 H (<1.2) BUN 54 H (9-20) mg/dL Creatinine 2.58 H (0.66-1.25) mg/dL Urine Protein 1+ H (Negative) Urine Bacteria Rare H (None) /hpf Hyaline Casts 6 H (0-2) /lpf Urine Mucus Rare H (None) /hpf Microbiology - Last 24 Hours (Table) 03/30/18 13:50 Blood Culture - Preliminary Blood No Growth after 24 hours Assessment and Plan Assessment: Assessment 1 acute on chronic hypoxic respiratory failure secondary to acute exacerbation of chronic systolic heart failure 2 exertional dyspnea and orthopnea and increased lower extremity edema secondary to above 3 CHF with a previous ejection fraction of 35% based on echocardiogram from May 2016 4 coronary artery disease with previous coronary intervention and stenting of the LAD 5 mild aortic stenosis 6 chronic stage III kidney disease 7 chronic atrial fibrillation maintained on warfarin on outpatient basis 8 hypertension 9 hyperlipidemia 10 remote history of CVA followed by seizure currently inactive in stable 11 obstructive sleep apnea maintained on CPAP at a pressure of 11 cm of water. The patient is post UPPP 12 depression 13 COPD 14 obesity 15 troponin leak Plan The patient was seen and evaluated by Dr. Malave. Chest x-ray and labs were reviewed. We'll continue with his current medications for now. Continue to diurese. Continue to monitor creatinine. We'll increase his activity as tolerated. We'll continue to follow. I, the cosigning physician, performed a history & physical examination of the patient. Lungs sounds with crackles in the posterior bases more so on the right. Maintaining good O2 saturations in the 90s on room air. I discussed the assessment and plan of care with my nurse practitioner, Michelle Staples. I attest to the above note as dictated by her.
[2018-04-01] MEDS: LOSARTAN 25 MG TAB PO SCH (14:33)
[2018-04-01] MEDS: GLYCOPYRROLATE INHALATION SCH (14:34)
[2018-04-01] MEDS: INDACATEROL INHALATION SCH (14:34)
--- NOTE | 2018-04-01 14:35 | P.PN ---
Subjective Progress Note Date: 04/01/18 This is a 77-year-old gentleman who follows with Dr. Hernández in the office. 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 History of, hyperlipidemia, prior CVA. Presents to the hospital with symptoms of progressively worsening shortness of breath over a couple of weeks duration. Positive PND and orthopnea, positive peripheral edema. Chest x-ray performed on arrival here showed bilateral infiltrate and pleural effusion greater on the right, central venous congestion evident. EKG on arrival here showed atrial fibrillation with a controlled ventricular response. Blood pressure 118/60 with a heart rate in the 70s, afebrile. White blood cell count 3.6, hemoglobin 12.0, platelet count 96. PTT 28.1, INR 3.1. Sodium 139, potassium 3.8, BUN 50 , creatinine 2.6. BNP level on admission 12,000. Troponin 0.085, 0.088, 0.074. Troponin abnormality not consistent with acute coronary syndrome, likely secondary to demand mismatch. Patient was initiated on IV Lasix drip, he does state that he's been putting out good urine since this was initiated. Continues to have bilateral peripheral edema. 04/01/2018 Patient seen and examined this morning, sitting up in the chair at bedside. Breathing is improving, continues to be on a Lasix drip at 10 mg per hour. Creatinine 2.5, INR 3.3, O2 saturations 90% on room air. Continues to be in atrial fibrillation, edema is improving bilaterally, weight is essentially unchanged. Echocardiogram with Doppler study revealed an ejection fraction of 20-25%. Mild to moderate mitral regurgitation, moderate to severe tricuspid regurgitation, severely dilated left atrium. Severe pulmonary hypertension. We will add losartan to the patient's medication regime. Check lytes BUN and creatinine in the morning. Objective - Vital Signs Vital signs: Vital Signs Temp 97.5 F L 04/01/18 12:00 Pulse 80 04/01/18 12:00 Resp 18 04/01/18 12:00 BP 115/73 04/01/18 12:00 Pulse Ox 99 04/01/18 12:00 Intake & Output 03/31/18 04/01/18 04/01/18 18:59 06:59 18:59 Intake Total 578 201.167 240 Output Total 525 Balance 578 -323.833 240 Weight 110.6 kg 111.7 kg Intake: Intake, IV Titration 201.167 Amount Furosemide 250 mg In 201.167 Sodium Chloride 0.9% 225 ml @ 10 MG/HR 10 mls/hr IVP .Q24H IRMA Rx#: [id number] Oral 578 240 Output: Urine 525 Other: Voiding Method Toilet Toilet Urinal Urinal # Voids 1 - Exam PHYSICAL EXAMINATION: GENERAL: 77-year-old gentleman in no acute distress at this time of my examination HEENT: Head is atraumatic, normocephalic. Pupils equal, round. Sclera anicteric. Conjunctiva are clear. Mucous membranes of the mouth are moist. Neck is supple. There is elevated jugular venous pressure. No carotid bruit is heard. HEART EXAMINATION: Heart S1-S2 irregularly irregular a systolic ejection murmur is heard at the base CHEST EXAMINATION: Lungs reveal crackles bilaterally with diminished air entry to the bases, right greater than left. ABDOMEN: Soft, nontender. Bowel sounds are heard. No organomegaly noted. EXTREMITIES: 2+ peripheral pulses with 2+ evidence of peripheral edema and no calf tenderness noted. NEUROLOGIC patient is awake, alert and oriented ?-3. - Labs CBC & Chem 7: 03/30/18 13:50 04/01/18 05:35 Labs: Abnormal Lab Results - Last 24 Hours (Table) 03/31/18 04/01/18 04/01/18 Range/Units 20:23 05:35 05:35 PT 30.0 H (9.0-12.0) sec INR 3.3 H (<1.2) BUN 54 H (9-20) mg/dL Creatinine 2.58 H (0.66-1.25) mg/dL Urine Protein 1+ H (Negative) Urine Bacteria Rare H (None) /hpf Hyaline Casts 6 H (0-2) /lpf Urine Mucus Rare H (None) /hpf Microbiology - Last 24 Hours (Table) 03/30/18 13:50 Blood Culture - Preliminary Blood No Growth after 24 hours Assessment and Plan Plan: Assessment and plan #1 systolic congestive heart failure acute on chronic #2 chronic persistent atrial fibrillation, on Eliquis for anticoagulation #3 acute on chronic renal insufficiency #4 known history of coronary artery disease with prior revascularization of the mid LAD in 1996 #4 ischemic cardio myopathy with prior AICD implant #5 hypertension #6 hyperlipidemia #7 abnormal troponins, not consistent with acute coronary syndrome, likely secondary to supply demand mismatch. #8 sleep apnea Plan We will continue patient on his current medications, continue IV Lasix drip, add losartan 25 mg daily to his medication regime. continue to monitor intake and output along with daily weights and daily lytes BUN and creatinine. DNP note has been reviewed, I agree with a documented findings and plan of care. Patient was seen and examined.
[2018-04-01] MEDS: WARFARIN 2.5 MG TAB PO SCH (16:13)
--- NOTE | 2018-04-01 17:19 | PN ---
PROGRESS NOTE The patient is seen for followup for chronic kidney disease and acute kidney injury. He states he is feeling better. Patient has had good urine output. He is currently being diuresed. Patient is maintained on Lasix drip. PHYSICAL EXAMINATION: Blood pressure was 116/73, heart rate 80 per minute. He is afebrile. Examination shows 1+ edema lower extremities. Abdomen is obese. Lungs are not examined. LICENSED PHYSICAL THERAPIST ASSISTANT exam is grossly intact. Patient moving all 4 extremities. No rashes are noted. LABS: Show sodium 140, potassium 4.1, BUN 54, serum creatinine 2.58. UA shows 1+ protein. ASSESSMENT: 1. Acute kidney injury mainly cardiorenal. Renal function is slightly better. The patient remains on Lasix drip, which we can change to IV push Lasix. 2. 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 UA is quite benign with trace proteinuria. 3. Type 2 diabetes, maintained on Tradjenta. 4. Congestive heart failure, acute on top of chronic, mainly systolic. 5. Cardiomyopathy with ejection fraction 20-25 with severely dilated left atrium. PLAN: Change Lasix to later on today. We will continue with the drip for another 6-8 hours. Repeat labs in a.m. and continue to avoid nephrotoxic agents. MMODL / IJN: [id number] /
--- NOTE | 2018-04-01 20:49 | PN ---
PROGRESS NOTE DATE OF SERVICE: March 31, 2018. ADDENDUM: Correction to my note dictated on March 31, 2018. The correct date of service should read 03/31/2018. MMODL / IJN: [id number] /
[2018-04-01] MEDS: ATORVASTATIN 20 MG TAB PO SCH (21:14)
[2018-04-01] MEDS: FUROSEMIDE 250 MG in SODIUM CHLORIDE 0.9% 225 ML IVP SCH (21:14)
[2018-04-01] MEDS: ALPRAZolam 0.25 MG TAB PO PRN (21:18)
--- NOTE | 2018-04-01 21:40 | PN ---
PROGRESS NOTE DATE OF SERVICE: 04/01/2018 PRESENTING COMPLAINT: Short of breath. INTERVAL HISTORY: This patient presented with CHF exacerbation and remains on Lasix drip. Is and Os are not well documented. Breathing is better. Swelling is slowly going down. Tolerating a diet. Did walk to the bathroom a few times. Family present at the bedside. REVIEW OF SYSTEMS: Done for constitutional, cardiovascular, GI, pulmonary; relevant findings as above. CURRENT MEDICATIONS: Include IV Lasix drip, Coreg 3.125 twice a day, Cozaar, Coumadin. PHYSICAL EXAMINATION: Temperature 97, pulse 80, respirations 16, blood pressure 118/76, pulse ox 92% on room air. GENERAL: Was sitting up in a chair, more awake. EYES: Pupils are equal. Conjunctivae normal. HEENT external appearance of nose and ears normal. Oral cavity normal. NECK: JVD not raised. Mass not palpable. Respiratory effort increased. LUNGS: Decreased breath sounds. CARDIOVASCULAR: First and seconds sounds normal. Decreased edema. ABDOMEN: Soft, nontender. Liver and spleen not palpable. PSYCHIATRY: Alert and oriented x3. Mood and affect normal. INVESTIGATIONS: INR 3.3 BUN 54, creatinine 2.58. Chest x-ray film interpreted by wa shows significant right-sided pleural effusion. ASSESSMENT: 1. [id number] congestive heart failure from systolic dysfunction. EF 20-25% slow to respond. 2. Bilateral pleural effusion, right greater than left significant. 3. Moderate aortic stenosis, [id number] tricuspid regurgitation, nonrheumatic. 4. Severe pulmonary hypertension secondary to congestive heart failure. 5. Chronic kidney disease stage 3 from nephrosclerosis. 6. Hyperlipidemia. 7. Coronary artery disease with prior history of stent. 8. Obstructive sleep apnea uses CPAP. 9. Chronic urinary incontinence. 10.Primary osteoarthritis. 11.Chronic gout. 12.Coumadin monitoring. 13.Persistent atrial fibrillation for which the patient is on Coumadin. PLAN: Continue medication and treatment plan. The patient may need to get fluid tapped. We may have to hold off the Coumadin. We will get an ultrasound to alexsander the lungs. Care was discussed with the family at the bedside. The patient is slow to respond. MMODL / IJN: [id number] /
[2018-04-02] MEDS: CARVEDILOL 3.125 MG TAB PO SCH ×2 (06:45→17:22)
[2018-04-02 07:15] LABS: INR 3.1 (<1.2); Prothrombin Time 27.7 sec (9.0-12.0)
[2018-04-02 07:18] LABS: Calcium 9.1 mg/dL (8.4-10.2); Potassium 4.2 mmol/L (3.5-5.1)
[2018-04-02] MEDS: COLCHICINE 0.6 MG EACH PO SCH (08:51)
[2018-04-02] MEDS: ALLOPURINOL 100 MG TAB PO SCH (08:51)
[2018-04-02] MEDS: FAMOTIDINE 20 MG TAB PO SCH (08:51)
[2018-04-02] MEDS: LINAGLIPTIN 5 MG TABLET PO SCH (08:51)
[2018-04-02] MEDS ORDERED: FUROSEMIDE 10 MG/ML 4 ML VIAL IV SCH (10:00)
--- NOTE | 2018-04-02 11:57 | US ---
EXAMINATION TYPE: US chest DATE OF EXAM: 04/02/2018 COMPARISON: Chest X-ray same date CLINICAL HISTORY: Pleural effusion. TECHNIQUE: Targeted ultrasound of the posterior lower bilateral hemithoraces EXAM MEASUREMENTS: Right Pleural Effusion pocket size: 8.9 cm Right skin surface to fluid distance: 4.4 cm Left Pleural Effusion pocket size: 1.4 cm Left skin surface to fluid distance: 5.3 cm Right side was marked for possible thoracentesis outside the dept. Left side was not marked for possible thoracentesis outside the dept. Pulmonologists are able to review the images in the patient?s EMR. IMPRESSIONS: Large right pleural effusion, only minimal left effusion suspected
--- NOTE | 2018-04-02 12:49 | P.PN ---
Subjective Progress Note Date: 04/02/18 77-year-old male patient with multiple medical problems and comorbidities who got admitted yesterday because of worsening shortness of breath, exertional dyspnea and orthopnea to the point where the patient was unable to lay down flat. The patient at increased lower extremity edema. He had no chest pain. No pleurisy. No hemoptysis. No cough or sputum production and he denied having any fever or chills. The patient was taken Lasix in a total of 120 mg on a daily basis. He has been compliant to his outpatient medication. Chest x- ray on admission showed bilateral pleural effusion right more than left and the patient has central venous congestion in addition to a pacer/AICD over the left anterior chest area. There was troponin leak with troponin levels of 0.08 0.08 0.07 respectively 3. ProBNP level was 12,000. Note that this patient has history of COPD and his FEV1 is no other of 30% of predicted. He also has chronic systolic heart failure, obstructive sleep apnea and is been maintained on CPAP therapy at a pressure of 11 cm of water. The patient has severe SILVER with an AHI of 33 at Baseline. He is obese. He also suffers from chronic renal failure and he has chronic stage III kidney disease. His last available echocardiogram was from May 2016 and the patient was found to have moderate impairment of the LV function with an ejection fraction of 35-40% and there was elevated and Levaquin ventricular end-diastolic pressure and segmental wall motion abnormalities. There was also some mild to moderate degree of pulmonary hypertension. There is mild aortic stenosis condition. The patient has chronic atrial fibrillation and he is on long-term anticoagulation with warfarin. He is known to have also previous coronary artery disease and previous coronary intervention to his LAD. Currently, the patient is feeling slightly better is currently on Lasix drip and is producing adequate amount of urine output. He is less short of breath compared to yesterday. He also has been reported interstitial lung disease/Doshi's lung although the specifics of this diagnosis is not clear to me at this point. The patient is seen again today 04/01/2018 in follow-up on the selective care unit. He is currently sitting up in a chair at the bedside. He is awake and alert in no acute distress. He is breathing easier today as compared to yesterday. He remains on a Lasix drip at 10 mg per hour. Creatinine 2.5. INR 3.3. He remains afebrile. O2 saturation 90% on room air. Remains in A. fib. Edema is improving. The patient is seen again today 04/02/2018 in follow-up on the selective care unit. He is currently resting comfortably in bed. His nasal CPAP is in place. He states his breathing is improved today as compared to yesterday. He is actually maintaining good O2 saturations in the 90s on room air. He's afebrile. Blood culture reveals no growth. INR 3.1. Creatinine 2.43. Ultrasound of the chest reveals a right pleural effusion 8.9 cm, left pleural effusion 1.4 cm. Objective - Vital Signs Vital signs: Vital Signs Temp 96.9 F L 04/02/18 11:10 Pulse 78 04/02/18 11:10 Resp 16 04/02/18 11:10 BP 115/64 04/02/18 11:10 Pulse Ox 96 04/02/18 11:10 Intake & Output 04/01/18 04/02/18 04/02/18 18:59 06:59 18:59 Intake Total 720 250 240 Output Total 1100 700 Balance -380 250 -460 Weight 112.1 kg 111.7 kg Intake: IV 60 Furosemide 250 mg In 60 Sodium Chloride 0.9% 225 ml @ 10 MG/HR 10 mls/hr IVP .Q24H IRMA Rx#: [id number] Intake, IV Titration 250 Amount Furosemide 250 mg In 250 Sodium Chloride 0.9% 225 ml @ 10 MG/HR 10 mls/hr IVP .Q24H IRMA Rx#: [id number] Oral 720 180 Output: Urine 1100 700 Other: Voiding Method Toilet Toilet Toilet Urinal # Voids 1 # Bowel Movements 2 1 - Exam Gen. appearance a mild degree of respiratory distress even at rest and the patient had difficulties and laying down flat in bed. He is obese. Head exam was generally normal. There was no scleral icterus or corneal arcus. Mucous membranes were moist. Neck was supple and with jugular venous distension, thyromegaly, or carotid bruits. Carotids were easily palpable bilaterally. There was no adenopathy. The patient undergone UPPP regarding a previous obstructive sleep apnea diagnosis. He does have some mild JVDs. Lung sounds are diminished in the lung bases and there are some bibasilar crackles. Heart sounds are irregular, positive sinus and there is no significant murmurs appreciated. Abdomen is obese soft nontender. Organs cannot be accurately palpated. No direct tenderness amount of solid guarding. Extremities revealed +1-2 pitting edema there is no cyanosis or clubbing. No wounds or sores. Examination of the skin revealed no evidence of significant rashes, suspicious appearing nevi or other concerning lesions. Neurologically awake and alert and there is no focal neurological deficit at this point. - Labs CBC & Chem 7: 03/30/18 13:50 04/02/18 06:36 Labs: Abnormal Lab Results - Last 24 Hours (Table) 04/02/18 04/02/18 Range/Units 06:36 06:36 PT 27.7 H (9.0-12.0) sec INR 3.1 H (<1.2) BUN 59 H (9-20) mg/dL Creatinine 2.43 H (0.66-1.25) mg/dL Microbiology - Last 24 Hours (Table) 03/30/18 13:50 Blood Culture - Preliminary Blood No Growth after 48 hours Assessment and Plan Assessment: Assessment 1 acute on chronic hypoxic respiratory failure secondary to acute exacerbation of chronic systolic heart failure, complicated by pleural effusion 2 exertional dyspnea and orthopnea and increased lower extremity edema secondary to above 3 CHF with a previous ejection fraction of 35% based on echocardiogram from May 2016 4 coronary artery disease with previous coronary intervention and stenting of the LAD 5 mild aortic stenosis 6 chronic stage III kidney disease 7 chronic atrial fibrillation maintained on warfarin on outpatient basis 8 hypertension 9 hyperlipidemia 10 remote history of CVA followed by seizure currently inactive in stable 11 obstructive sleep apnea maintained on CPAP at a pressure of 11 cm of water. The patient is post UPPP 12 depression 13 COPD 14 obesity 15 troponin leak Plan The patient was seen and evaluated by Dr. Malave. Ultrasound and labs were reviewed. We'll continue with his current medications for now. He remains on Lasix 40 mg IV every 8 hours. He continues to diurese well. He is maintaining good O2 saturations in the 90s on room air. No plans for thoracentesis at this point. Continue warfarin. We'll increase his activity as tolerated. We'll continue to follow. I, the cosigning physician, performed a history & physical examination of the patient. Lungs sounds with crackles in the posterior bases more so on the right. Maintaining good O2 saturations in the 90s on room air. I discussed the assessment and plan of care with my nurse practitioner, Michelle Staples. I attest to the above note as dictated by her.
[2018-04-02] MEDS: LOSARTAN 25 MG TAB PO SCH (14:53)
[2018-04-02] MEDS: INDACATEROL INHALATION SCH (15:22)
[2018-04-02] MEDS: GLYCOPYRROLATE INHALATION SCH (15:22)
--- NOTE | 2018-04-02 15:56 | PN ---
PROGRESS NOTE Patient is seen for followup for acute kidney injury which was mainly cardiorenal. Renal function has been improving. Patient's volume status has improved. He is feeling better. However, he states that his weight has gone up significantly from yesterday. However, I do not believe the 112 was accurate. It is at 111.7 kg. The patient denies any chest pain. His 24 hour urine output is about 1.1 L. PHYSICAL EXAMINATION: Blood pressure is 115/64, heart rate 72 per minute. Patient is afebrile. Examination of the heart: S1, S2. Examination of the lungs: Bilateral breath sounds are heard. No crackles or wheezing is heard. Abdomen is soft, nontender. Examination lower extremities shows edema 2+ bilaterally. TABLE INSPECTOR exam is grossly intact. LABS: Sodium of 140, potassium 4.2, BUN 59, serum creatinine at 2.43. ASSESSMENT: 1. Acute kidney injury mainly cardiorenal, currently slowly improving. Continue with diuresis. Blood pressure is low. I will discontinue the Cozaar. We can resume low-dose once his blood pressure is improved. We had a systolic of 88/48. We can also switch the Lasix drip to IV push Lasix. I will add low-dose Zaroxolyn. 2. Hypertension. Blood pressure currently on the lower side. Will hold off on the Cozaar. Given the hypotension we can resume low-dose when systolic blood pressure consistently stays above 115 mmHg. 3. Chronic kidney disease, NKF stage IV, secondary to nephrosclerosis. 4. Type 2 diabetes, maintained on Tradjenta. 5. Cardiomyopathy, ejection fraction 20-25 percent with severely dilated left atrium. PLAN: Switch Lasix to IV push. Add low-dose Zaroxolyn. Continue with fluid restriction. Hold Cozaar as blood pressure remains low with systolic of 88 mmHg this morning and repeat labs in a.m. MMODL / IJN: [id number] /
[2018-04-02] MEDS ORDERED: PHYTONADIONE ORAL 5 MG/5 ML ORAL.SYRG PO STA (16:36)
[2018-04-02] MEDS: WARFARIN 5 MG TAB PO SCH (16:57)
[2018-04-02] MEDS: METOLAZONE 5 MG TAB PO SCH (17:22)
--- NOTE | 2018-04-02 18:32 | PN ---
PROGRESS NOTE DATE OF SERVICE: 04/02/2018 PRESENTING COMPLAINT: Short of breath. INTERVAL HISTORY: This patient presented with CHF exacerbation and is on IV Lasix. Diuresing. Breathing is slowly improving. Up to the bathroom again. Did tolerate a diet. REVIEW OF SYSTEMS: Done for constitutional, cardiovascular, GI, pulmonary; relevant findings as above. CURRENT MEDICATIONS: Reviewed. They include IV Lasix 60 mg q.12, Zaroxolyn, Coumadin. PHYSICAL EXAMINATION: Temperature 96.9, pulse 72, respiration 16, blood pressure 111/64, pulse ox 96% on room air. GENERAL APPEARANCE: Lying in bed, awake. EYES: Pupils equal. Conjunctivae normal. HEENT: External appearance of nose and ears normal. Oral cavity normal. NECK: JVD raised. Mass not palpable. RESPIRATORY: Effort increased. LUNGS: Decreased breath sounds. CARDIOVASCULAR: First and second sounds normal. Edema present. ABDOMEN: Soft, nontender. Liver and spleen not palpable. PSYCHIATRY: Alert and oriented x3. Mood and affect normal. INVESTIGATIONS: INR 3.1, BUN 59, creatinine 2.43. Ultrasound of the chest shows large right pleural effusion. ASSESSMENT: 1. Acute on chronic congestive heart failure exacerbation from systolic dysfunction, ejection fraction 20% to 25%, slow to respond. 2. Large right pleural effusion, right greater than left, secondary to congestive heart failure. 3. Moderate aortic stenosis, moderate to severe tricuspid regurgitation, non- rheumatic. 4. Severe secondary pulmonary hypertension secondary to congestive heart failure. 5. Chronic kidney disease, stage III, from nephrosclerosis. 6. Hyperlipidemia. 7. Coronary artery disease with prior history of stent. 8. Obstructive sleep apnea. Uses CPAP. 9. Chronic urine incontinence. 10.Primary osteoarthritis. 11.Chronic gout. 12.Coumadin monitoring. 13.Persistent atrial fibrillation, for which patient is on Coumadin. PLAN: Continue current medication and treatment plan. Patient may benefit from right thoracentesis. Coumadin will have to be held off. Will discuss with Pulmonary. Care was discussed with the patient. Will follow. MMODL / IJN: [id number] /
--- NOTE | 2018-04-02 18:53 | PN ---
PROGRESS NOTE Mr. Peacock is a gentleman with ischemic heart disease, CHF, who was admitted to the hospital with a volume overload picture. He is feeling a lot better. His breathing is easier. Edema has decreased. His weight is down. Vital signs are stable. S1, S2 heard normally. Short systolic murmur noted. Lungs reveal decent air entry in bilateral lung lubin. There is improvement in his breath sounds. Plan is to continue current medications, but I will switch him from the IV drip Lasix to a Lasix IV push. He is well anticoagulated for atrial fibrillation and his PT/INR today is 3.1. We will give him 2.5 mg Coumadin. Advised to continue cautious diuresis, and based on clinical course we will make further recommendations. MMODL / IJN: [id number] /
[2018-04-02] MEDS: FUROSEMIDE 10 MG/ML 10 ML VIAL IV SCH (20:33)
[2018-04-02] MEDS: GABAPENTIN 100 MG CAP PO SCH (20:33)
[2018-04-02] MEDS: ATORVASTATIN 20 MG TAB PO SCH (20:33)
[2018-04-02] MEDS: ALPRAZolam 0.25 MG TAB PO PRN (20:47)
[2018-04-03 06:47] LABS: Calcium 9.3 mg/dL (8.4-10.2); Potassium 3.9 mmol/L (3.5-5.1)
[2018-04-03] MEDS: CARVEDILOL 3.125 MG TAB PO SCH ×2 (06:52→17:40)
[2018-04-03 08:51] LABS: Prothrombin Time 18.2 sec (9.0-12.0)
[2018-04-03] MEDS: ALLOPURINOL 100 MG TAB PO SCH (09:31)
[2018-04-03] MEDS: COLCHICINE 0.6 MG EACH PO SCH (09:32)
[2018-04-03] MEDS: FAMOTIDINE 20 MG TAB PO SCH (09:33)
[2018-04-03] MEDS: FUROSEMIDE 10 MG/ML 10 ML VIAL IV SCH ×2 (09:34→20:25)
[2018-04-03] MEDS: LINAGLIPTIN 5 MG TABLET PO SCH (09:38)
[2018-04-03] MEDS: METOLAZONE 5 MG TAB PO SCH (09:39)
--- NOTE | 2018-04-03 12:25 | XR ---
EXAMINATION TYPE: XR chest 1V DATE OF EXAM: 04/03/2018 COMPARISON: 04/01/2018 HISTORY: Shortness of breath TECHNIQUE: Single frontal view of the chest is obtained. FINDINGS: The heart is enlarged and there is a cardiac device with bilateral small effusions. Right- sided consolidation seen and stable. No evidence of pneumothorax. IMPRESSION: 1. Bilateral infiltrate and small effusion appears improved from the prior exam. Correlate for reduci ng pneumonia or CHF.
--- NOTE | 2018-04-03 12:33 | P.PN ---
Subjective Progress Note Date: 04/03/18 This is a 77-year-old gentleman who follows with Dr. Hernández in the office. 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 History of, hyperlipidemia, prior CVA. Presents to the hospital with symptoms of progressively worsening shortness of breath over a couple of weeks duration. Positive PND and orthopnea, positive peripheral edema. Chest x-ray performed on arrival here showed bilateral infiltrate and pleural effusion greater on the right, central venous congestion evident. EKG on arrival here showed atrial fibrillation with a controlled ventricular response. Blood pressure 118/60 with a heart rate in the 70s, afebrile. White blood cell count 3.6, hemoglobin 12.0, platelet count 96. PTT 28.1, INR 3.1. Sodium 139, potassium 3.8, BUN 50 , creatinine 2.6. BNP level on admission 12,000. Troponin 0.085, 0.088, 0.074. Troponin abnormality not consistent with acute coronary syndrome, likely secondary to demand mismatch. Patient was initiated on IV Lasix drip, he does state that he's been putting out good urine since this was initiated. Continues to have bilateral peripheral edema. 04/01/2018 Patient seen and examined this morning, sitting up in the chair at bedside. Breathing is improving, continues to be on a Lasix drip at 10 mg per hour. Creatinine 2.5, INR 3.3, O2 saturations 90% on room air. Continues to be in atrial fibrillation, edema is improving bilaterally, weight is essentially unchanged. Echocardiogram with Doppler study revealed an ejection fraction of 20-25%. Mild to moderate mitral regurgitation, moderate to severe tricuspid regurgitation, severely dilated left atrium. Severe pulmonary hypertension. We will add losartan to the patient's medication regime. Check lytes BUN and creatinine in the morning. 04/03/2018 Patient was seen and examined this morning, does state that his breathing is improving every day. He did undergo an ultrasound of the chest yesterday which revealed a greater than 8 cm effusion on the right.blood pressure 108/60 with a heart rate in the 80s, 93% on room air. PT 18.2 with an INR of 2.0. Sodium 139 , potassium 3.9, BUN 62, creatinine 2.4. Objective - Vital Signs Vital signs: Vital Signs Temp 98.0 F 04/03/18 08:13 Pulse 82 04/03/18 08:13 Resp 18 04/03/18 08:13 BP 108/65 04/03/18 08:13 Pulse Ox 93 L 04/03/18 08:13 Intake & Output 04/02/18 04/03/18 04/03/18 18:59 06:59 18:59 Intake Total 855 Output Total 800 1500 750 Balance 55 -1500 -750 Weight 111.7 kg 111 kg Intake: IV 60 Furosemide 250 mg In 60 Sodium Chloride 0.9% 225 ml @ 10 MG/HR 10 mls/hr IVP .Q24H [facility] Rx#: [id number] Oral 795 Output: Urine 800 1500 750 Other: Voiding Method Toilet Toilet # Voids 1 1 # Bowel Movements 1 1 - Exam PHYSICAL EXAMINATION: GENERAL: 77-year-old gentleman in no acute distress at this time of my examination HEENT: Head is atraumatic, normocephalic. Pupils equal, round. Sclera anicteric. Conjunctiva are clear. Mucous membranes of the mouth are moist. Neck is supple. There is elevated jugular venous pressure. No carotid bruit is heard. HEART EXAMINATION: Heart S1-S2 irregularly irregular a systolic ejection murmur is heard at the base CHEST EXAMINATION: Lungs reveal crackles bilaterally with diminished air entry to the bases, right greater than left. ABDOMEN: Soft, nontender. Bowel sounds are heard. No organomegaly noted. EXTREMITIES: 2+ peripheral pulses with 2+ evidence of peripheral edema and no calf tenderness noted. NEUROLOGIC patient is awake, alert and oriented ?-3. - Labs CBC & Chem 7: 03/30/18 13:50 04/03/18 06:06 Labs: Abnormal Lab Results - Last 24 Hours (Table) 04/03/18 04/03/18 Range/Units 06:06 08:10 PT 18.2 H (9.0-12.0) sec INR 2.0 H (<1.2) Carbon Dioxide 32 H (22-30) mmol/L BUN 62 H (9-20) mg/dL Creatinine 2.41 H (0.66-1.25) mg/dL Microbiology - Last 24 Hours (Table) 03/30/18 13:50 Blood Culture - Preliminary Blood No Growth after 72 hours Assessment and Plan Plan: Assessment and plan #1 systolic congestive heart failure acute on chronic #2 chronic persistent atrial fibrillation, on Eliquis for anticoagulation #3 acute on chronic renal insufficiency #4 known history of coronary artery disease with prior revascularization of the mid LAD in 1996 #4 ischemic cardio myopathy with prior AICD implant #5 hypertension #6 hyperlipidemia #7 abnormal troponins, not consistent with acute coronary syndrome, likely secondary to supply demand mismatch. #8 sleep apnea Plan We will continue patient on his current medications, continue IV Lasix , patient was evaluated by pulmonary yesterday following the ultrasound, at that point they decided to hold off on any thoracentesis, this however may be performed later today. DNP note has been reviewed, I agree with a documented findings and plan of care. Patient was seen and examined.
--- NOTE | 2018-04-03 13:13 | P.PN ---
Subjective Progress Note Date: 04/03/18 Principal diagnosis: Acute on chronic hypoxic respiratory failure secondary to an acute exacerbation of chronic systolic heart failure 77-year-old male patient with multiple medical problems and comorbidities who got admitted yesterday because of worsening shortness of breath, exertional dyspnea and orthopnea to the point where the patient was unable to lay down flat. The patient at increased lower extremity edema. He had no chest pain. No pleurisy. No hemoptysis. No cough or sputum production and he denied having any fever or chills. The patient was taken Lasix in a total of 120 mg on a daily basis. He has been compliant to his outpatient medication. Chest x- ray on admission showed bilateral pleural effusion right more than left and the patient has central venous congestion in addition to a pacer/AICD over the left anterior chest area. There was troponin leak with troponin levels of 0.08 0.08 0.07 respectively 3. ProBNP level was 12,000. Note that this patient has history of COPD and his FEV1 is no other of 30% of predicted. He also has chronic systolic heart failure, obstructive sleep apnea and is been maintained on CPAP therapy at a pressure of 11 cm of water. The patient has severe SILVER with an AHI of 33 at Baseline. He is obese. He also suffers from chronic renal failure and he has chronic stage III kidney disease. His last available echocardiogram was from May 2016 and the patient was found to have moderate impairment of the LV function with an ejection fraction of 35-40% and there was elevated and Levaquin ventricular end-diastolic pressure and segmental wall motion abnormalities. There was also some mild to moderate degree of pulmonary hypertension. There is mild aortic stenosis condition. The patient has chronic atrial fibrillation and he is on long-term anticoagulation with warfarin. He is known to have also previous coronary artery disease and previous coronary intervention to his LAD. Currently, the patient is feeling slightly better is currently on Lasix drip and is producing adequate amount of urine output. He is less short of breath compared to yesterday. He also has been reported interstitial lung disease/Doshi's lung although the specifics of this diagnosis is not clear to me at this point. The patient is seen again today 04/01/2018 in follow-up on the selective care unit. He is currently sitting up in a chair at the bedside. He is awake and alert in no acute distress. He is breathing easier today as compared to yesterday. He remains on a Lasix drip at 10 mg per hour. Creatinine 2.5. INR 3.3. He remains afebrile. O2 saturation 90% on room air. Remains in A. fib. Edema is improving. The patient is seen again today 04/02/2018 in follow-up on the selective care unit. He is currently resting comfortably in bed. His nasal CPAP is in place. He states his breathing is improved today as compared to yesterday. He is actually maintaining good O2 saturations in the 90s on room air. He's afebrile. Blood culture reveals no growth. INR 3.1. Creatinine 2.43. Ultrasound of the chest reveals a right pleural effusion 8.9 cm, left pleural effusion 1.4 cm. The patient is seen again today 04/03/2018 in follow-up on the selective care unit. He is currently sitting up in a chair at the bedside. He is awake and alert in no acute distress. His breathing is still not back to his baseline. He still dyspneic on exertion. He is maintaining good O2 saturations in the 90s on room air. He's been afebrile. Chest ultrasound didn't show significant right-sided pleural effusion. He did undergo a thoracentesis today with Dr. Malave. 2000 ML's of straw colored fluid removed. Fluid was sent for analysis/cytology. Objective - Vital Signs Vital signs: Vital Signs Temp 98.0 F 04/03/18 08:13 Pulse 82 04/03/18 08:13 Resp 18 04/03/18 08:13 BP 108/65 04/03/18 08:13 Pulse Ox 93 L 04/03/18 08:13 Intake & Output 04/02/18 04/03/18 04/03/18 18:59 06:59 18:59 Intake Total 855 Output Total 800 1500 750 Balance 55 -1500 -750 Weight 111.7 kg 111 kg Intake: IV 60 Furosemide 250 mg In 60 Sodium Chloride 0.9% 225 ml @ 10 MG/HR 10 mls/hr IVP .Q24H [facility] Rx#: [id number] Oral 795 Output: Urine 800 1500 750 Other: Voiding Method Toilet Toilet # Voids 1 1 # Bowel Movements 1 1 - Exam Gen. appearance a mild degree of respiratory distress even at rest and the patient had difficulties and laying down flat in bed. He is obese. Head exam was generally normal. There was no scleral icterus or corneal arcus. Mucous membranes were moist. Neck was supple and with jugular venous distension, thyromegaly, or carotid bruits. Carotids were easily palpable bilaterally. There was no adenopathy. The patient undergone UPPP regarding a previous obstructive sleep apnea diagnosis. He does have some mild JVDs. Lung sounds are diminished in the lung bases and there are some bibasilar crackles right greater than left. Heart sounds are irregular, positive sinus and there is no significant murmurs appreciated. Abdomen is obese soft nontender. Organs cannot be accurately palpated. No direct tenderness amount of solid guarding. Extremities revealed +1-2 pitting edema there is no cyanosis or clubbing. No wounds or sores. Examination of the skin revealed no evidence of significant rashes, suspicious appearing nevi or other concerning lesions. Neurologically awake and alert and there is no focal neurological deficit at this point. - Labs CBC & Chem 7: 03/30/18 13:50 04/03/18 06:06 Labs: Abnormal Lab Results - Last 24 Hours (Table) 04/03/18 04/03/18 Range/Units 06:06 08:10 PT 18.2 H (9.0-12.0) sec INR 2.0 H (<1.2) Carbon Dioxide 32 H (22-30) mmol/L BUN 62 H (9-20) mg/dL Creatinine 2.41 H (0.66-1.25) mg/dL Microbiology - Last 24 Hours (Table) 03/30/18 13:50 Blood Culture - Preliminary Blood No Growth after 72 hours Assessment and Plan Assessment: Assessment 1 acute on chronic hypoxic respiratory failure secondary to acute exacerbation of chronic systolic heart failure, complicated by pleural effusion status post right-sided thoracentesis. 2000 ML's of straw colored fluid was removed. 2 exertional dyspnea and orthopnea and increased lower extremity edema secondary to above 3 CHF with a previous ejection fraction of 35% based on echocardiogram from May 2016 4 coronary artery disease with previous coronary intervention and stenting of the LAD 5 mild aortic stenosis 6 chronic stage III kidney disease 7 chronic atrial fibrillation maintained on warfarin on outpatient basis 8 hypertension 9 hyperlipidemia 10 remote history of CVA followed by seizure currently inactive in stable 11 obstructive sleep apnea maintained on CPAP at a pressure of 11 cm of water. The patient is post UPPP 12 depression 13 COPD 14 obesity 15 troponin leak Plan The patient was seen and evaluated by Dr. Malave. He did perform a right- sided thoracentesis today. 2000 ML's of straw colored fluid removed. Follow- up chest x-ray showed near complete resolution of the right pleural effusion. No pneumothorax. We will repeat a chest x-ray in the a.m. May benefit from a left-sided thoracentesis. He is maintaining good O2 saturations in the 90s on room air. Hold warfarin. We'll increase his activity as tolerated. We'll continue to follow. I, the cosigning physician, performed a history & physical examination of the patient. Lungs sounds with crackles in the posterior bases. Maintaining good O2 saturations in the 90s on room air. I discussed the assessment and plan of care with my nurse practitioner, Michelle Staples. I attest to the above note as dictated by her.
--- NOTE | 2018-04-03 13:54 | PN ---
PROGRESS NOTE Patient is seen for followup for acute kidney injury which was mainly cardiorenal. He was admitted with fluid overload. Patient was maintained on Lasix drip initially. Yesterday, his Lasix was changed to 60 mg q.12 hours. I also added a low dose of Zaroxolyn. The patient has diuresed well. He states he is feeling better. His weight is down somewhat from 111.7 kg to 111. A 24 hour urine output was 2.3 L, which is much more than previously. PHYSICAL EXAMINATION: On examination currently, blood pressure is 108/65, heart rate 82 per minute. Patient is afebrile. EXAMINATION OF THE HEART: S1, S2. EXAMINATION OF THE LUNGS: Bilateral breath sounds are heard. Abdomen is soft, nontender. Examination of the lower extremities shows edema 2+ bilaterally. CHAIN SALES CONSULTANT exam is grossly intact. LABS: Labs show sodium 139, potassium 3.9, BUN 62, serum creatinine 2.41. INR was 2.0. ASSESSMENT: 1. Acute kidney injury, cardiorenal, currently stable and improved since admission. I will continue the same dose of diuretics and we can likely decrease the dose of Zaroxolyn tomorrow depending on the renal function and volume status. Continue with the IV Lasix. 2. Cardiomyopathy with ejection fraction of 20% to 25% with severely dilated left atrium. 3. Chronic kidney disease stage IV secondary to nephrosclerosis with a baseline creatinine of around 1.9 to 2 mg/dL. 4. Pleural effusion, status post right thoracentesis. 5. Acute respiratory failure, hypoxic secondary to exacerbation of congestive heart failure and volume overload and pleural effusion. 6. Coronary artery disease with previous history of coronary intervention and left anterior descending artery stenting. 7. Type 2 diabetes, maintained on Tradjenta. 8. Hypertension. Blood pressure had been on the lower side and therefore the Cozaar was held yesterday. We had a systolic blood pressure of 91 mmHg. PLAN: Continue off of Cozaar. Continue current dose of diuretics. Consider decreasing Zaroxolyn depending on renal function and volume status tomorrow. MMODL / IJN: [id number] /
--- NOTE | 2018-04-03 14:21 | PN ---
PROGRESS NOTE DATE OF SERVICE: 04/03/2018 PRESENTING COMPLAINT: Short of breath. INTERVAL HISTORY: The patient presents with CHF exacerbation. Initially was on a Lasix drip. Now switched to IV Lasix. Making urine. Breathing continues to improve. Chest ultrasound was marked for thoracentesis. Had 2 L of fluid removed today with Dr. Malave on the right side. Breathing is better. Appetite is getting better. Patient has been up to the up to the bathroom. Edema is going down. REVIEW OF SYSTEMS: Done for constitutional, cardiovascular, GI, pulmonary; relevant findings as above. CURRENT MEDICATIONS: Reviewed that include IV Lasix 60 mg q.12, p.o. Zaroxolyn. PHYSICAL EXAMINATION: Temperature 98, pulse 72, respiratory 18, blood pressure 118/65, pulse ox 93% on room. In general, sitting up, tired, awake. EYES: Pupils equal, conjunctivae are normal. HEENT: External appearance of nose and ears normal, Oral cavity normal neck. JVD raised. Mass not palpable. RESPIRATORY: Effort increased. LUNGS: Decreased breath sounds. CARDIOVASCULAR: First and second sound normal, edema present. ABDOMEN: Soft, nontender, liver and spleen not palpable. PSYCHIATRY: Alert and oriented x3. Mood and affect was normal. INVESTIGATIONS: INR 2, potassium 3.9, BUN 62, creatinine 2.41. ASSESSMENT: 1. Acute on chronic congestive heart failure exacerbation from systolic dysfunction, ejection fraction 20%-25%. 2. Large right pleural effusion secondary to congestive heart failure, status post thoracentesis 2 L was removed today. 3. Moderate aortic stenosis, moderate to severe tricuspid regurgitation, nonrheumatic. 4. Severe secondary pulmonary hypertension secondary to congestive heart failure. 5. Chronic kidney disease stage 3 from nephrosclerosis. 6. Hyperlipidemia. 7. Coronary artery with prior history of stent. 8. Obstructive sleep apnea uses CPAP. 9. Chronic urine incontinence. 10.Primary osteoarthritis. 11.Chronic gout. 12.Coumadin monitoring. 13.Persistent atrial fibrillation, will hold patient's Coumadin. PLAN: Patient overall doing better. Will resume patient's Coumadin tonight. Will follow. MMODL / IJN: [id number] /
[2018-04-03] MEDS: ATORVASTATIN 20 MG TAB PO SCH (20:24)
[2018-04-03] MEDS: ALPRAZolam 0.25 MG TAB PO PRN (20:24)
[2018-04-03] MEDS: GABAPENTIN 100 MG CAP PO SCH (20:24)
[2018-04-03] MEDS: GLYCOPYRROLATE INHALATION SCH (21:12)
[2018-04-03] MEDS: INDACATEROL INHALATION SCH (21:12)
[2018-04-04] MEDS: CARVEDILOL 3.125 MG TAB PO SCH ×2 (06:26→17:22)
[2018-04-04 07:15] LABS: Calcium 9.6 mg/dL (8.4-10.2); Potassium 3.7 mmol/L (3.5-5.1)
[2018-04-04] MEDS: FAMOTIDINE 20 MG TAB PO SCH (08:45)
[2018-04-04] MEDS: ALLOPURINOL 100 MG TAB PO SCH (08:45)
[2018-04-04] MEDS: METOLAZONE 5 MG TAB PO SCH (08:45)
[2018-04-04] MEDS: COLCHICINE 0.6 MG EACH PO SCH (08:45)
[2018-04-04] MEDS: FUROSEMIDE 10 MG/ML 10 ML VIAL IV SCH ×2 (08:46→20:36)
--- NOTE | 2018-04-04 09:43 | P.PN ---
Subjective Progress Note Date: 04/04/18 Principal diagnosis: This is a 77-year-old male seen in consultation because of acute kidney injury and chronic kidney disease. He came in because of shortness of breath. He has been vigorously diuresed. Additionally he had a pleural Tap done yesterday on the right lung and 2000 mL were aspirated. Is feeling much better this morning less short of breath able to walk. He is known with obstructive CPAP and uses a BiPAP. Is known with atrial fibrillation chronic kidney disease stage IV creatinine about 2, history of prostate cancer Objective - Vital Signs Vital signs: Vital Signs Temp 99 F 04/04/18 08:30 Pulse 95 04/04/18 08:30 Resp 16 04/04/18 08:30 BP 110/53 04/04/18 08:30 Pulse Ox 95 04/04/18 08:30 Intake & Output 04/03/18 04/04/18 04/04/18 18:59 06:59 18:59 Intake Total 716 180 Output Total 3950 2400 300 Balance -3234 -2400 -120 Weight 107.5 kg Intake: Oral 716 180 Output: Urine 1950 2400 300 Other 2000 Other: Voiding Method Toilet Toilet # Voids 1 # Bowel Movements 1 1 On examination is awake alert oriented able to walk slowly without any dizziness. A chin exam no JVP neck is supple no facial asymmetry Lungs are significant for good air entry bilaterally with no dullness to percussion. Heart sounds are unremarkable for any murmur rub gallop. He is known with atrial fibrillation Abdomen soft nontender Extreme exam was mild edema. Neurologically awake alert oriented able to walk slowly and independently - Labs CBC & Chem 7: 03/30/18 13:50 04/04/18 06:39 Labs: Abnormal Lab Results - Last 24 Hours (Table) 04/04/18 Range/Units 06:39 Chloride 94 L (98-107) mmol/L Carbon Dioxide 36 H (22-30) mmol/L BUN 63 H (9-20) mg/dL Creatinine 2.36 H (0.66-1.25) mg/dL Glucose 101 H (74-99) mg/dL Microbiology - Last 24 Hours (Table) 04/03/18 11:39 Body Fluid Culture - Preliminary Peritoneal Fluid 03/30/18 13:50 Blood Culture - Preliminary Blood No Growth after 96 hours Assessment and Plan Assessment: Impression 1. Acute kidney injury secondary to cardiorenal syndrome and improving slowly. Currently on Zaroxolyn and Lasix 60 every 12. Creatinine improved from 2.6 on 03/31/2018 to 2.36 this morning. He had good urine output 43 50 mL an additional 2000 mL of pleural tap. 2. Chronic kidney disease stage IV Baseline creatinine 2. GFR is in the 20 range 3 history of cardiomyopathy ejection fraction 20% 4. Diabetes mellitus. 5. History of COPD and obstructive sleep apnea on BiPAP 6. Metabolic alkalosis bicarb going up slowly from 32-36 now. This is from diuresis and possible element of volume depletion Recommendation. 1 check orthostatic changes, given metabolic alkalosis he may be 1 and depleted. 2. Maintain Lasix unless there is significant fall in the orthostatic blood pressure. 3. Monitor labs including metabolic alkalosis he may need Diamox
[2018-04-04] MEDS ORDERED: POTASSIUM CHLORIDE ER 20 MEQ TAB.ER PO STA (11:38)
--- NOTE | 2018-04-04 11:50 | P.PN ---
Subjective Progress Note Date: 04/04/18 77-year-old male patient with multiple medical problems and comorbidities who got admitted yesterday because of worsening shortness of breath, exertional dyspnea and orthopnea to the point where the patient was unable to lay down flat. The patient at increased lower extremity edema. He had no chest pain. No pleurisy. No hemoptysis. No cough or sputum production and he denied having any fever or chills. The patient was taken Lasix in a total of 120 mg on a daily basis. He has been compliant to his outpatient medication. Chest x- ray on admission showed bilateral pleural effusion right more than left and the patient has central venous congestion in addition to a pacer/AICD over the left anterior chest area. There was troponin leak with troponin levels of 0.08 0.08 0.07 respectively 3. ProBNP level was 12,000. Note that this patient has history of COPD and his FEV1 is no other of 30% of predicted. He also has chronic systolic heart failure, obstructive sleep apnea and is been maintained on CPAP therapy at a pressure of 11 cm of water. The patient has severe SILVER with an AHI of 33 at Baseline. He is obese. He also suffers from chronic renal failure and he has chronic stage III kidney disease. His last available echocardiogram was from May 2016 and the patient was found to have moderate impairment of the LV function with an ejection fraction of 35-40% and there was elevated and Levaquin ventricular end-diastolic pressure and segmental wall motion abnormalities. There was also some mild to moderate degree of pulmonary hypertension. There is mild aortic stenosis condition. The patient has chronic atrial fibrillation and he is on long-term anticoagulation with warfarin. He is known to have also previous coronary artery disease and previous coronary intervention to his LAD. Currently, the patient is feeling slightly better is currently on Lasix drip and is producing adequate amount of urine output. He is less short of breath compared to yesterday. He also has been reported interstitial lung disease/Doshi's lung although the specifics of this diagnosis is not clear to me at this point. The patient is seen again today 04/01/2018 in follow-up on the selective care unit. He is currently sitting up in a chair at the bedside. He is awake and alert in no acute distress. He is breathing easier today as compared to yesterday. He remains on a Lasix drip at 10 mg per hour. Creatinine 2.5. INR 3.3. He remains afebrile. O2 saturation 90% on room air. Remains in A. fib. Edema is improving. The patient is seen again today 04/02/2018 in follow-up on the selective care unit. He is currently resting comfortably in bed. His nasal CPAP is in place. He states his breathing is improved today as compared to yesterday. He is actually maintaining good O2 saturations in the 90s on room air. He's afebrile. Blood culture reveals no growth. INR 3.1. Creatinine 2.43. Ultrasound of the chest reveals a right pleural effusion 8.9 cm, left pleural effusion 1.4 cm. The patient is seen again today 04/03/2018 in follow-up on the selective care unit. He is currently sitting up in a chair at the bedside. He is awake and alert in no acute distress. His breathing is still not back to his baseline. He still dyspneic on exertion. He is maintaining good O2 saturations in the 90s on room air. He's been afebrile. Chest ultrasound didn't show significant right-sided pleural effusion. He did undergo a thoracentesis today with Dr. Malave. 2000 ML's of straw colored fluid removed. Fluid was sent for analysis/cytology. On 04/04/2018, the patient is feeling much better. He underwent a thoracentesis yesterday and the right-sided pleural effusion was drained. Subsequent chest x-ray shows small amount of bilateral pleural effusion slightly worse on the left. Meanwhile, the patient is being diuresis with IV Lasix. The patient is receiving Lasix pushes 60 mg IV every 12 hours. The fluid balance is -5.6 L yesterday and the patient's BUN/creatinine are stable with a BUN of 63 and creatinine of 2.3. He is able to lay down flat in bed. Lower extremity edema is also improving. No nausea. No vomiting. No chest pain. No other complaints otherwise for now. His INR is at 2.0 from yesterday. Objective - Vital Signs Vital signs: Vital Signs Temp 96.7 F L 04/04/18 11:39 Pulse 93 04/04/18 11:39 Resp 20 04/04/18 11:39 BP 115/62 04/04/18 11:39 Pulse Ox 96 04/04/18 11:39 Intake & Output 04/03/18 04/04/18 04/04/18 18:59 06:59 18:59 Intake Total 716 180 Output Total 3950 2400 300 Balance -3234 -2400 -120 Weight 107.5 kg Intake: Oral 716 180 Output: Urine 1950 2400 300 Other 2000 Other: Voiding Method Toilet Toilet Toilet # Voids 1 # Bowel Movements 1 1 - Exam Gen. appearance, comfortable lying acute distress Head exam was generally normal. There was no scleral icterus or corneal arcus. Mucous membranes were moist. Neck was supple and with jugular venous distension, thyromegaly, or carotid bruits. Carotids were easily palpable bilaterally. There was no adenopathy. The patient undergone UPPP regarding a previous obstructive sleep apnea diagnosis. He does have some mild JVDs. Lung sounds are diminished in the lung bases and there are some bibasilar crackles right greater than left. Heart sounds are irregular, positive sinus and there is no significant murmurs appreciated. Abdomen is obese soft nontender. Organs cannot be accurately palpated. No direct tenderness amount of solid guarding. Extremities revealed improving edema lower extremity is bilaterally. No cyanosis. No clubbing. Examination of the skin revealed no evidence of significant rashes, suspicious appearing nevi or other concerning lesions. Neurologically awake and alert and there is no focal neurological deficit at this point. - Labs CBC & Chem 7: 03/30/18 13:50 04/04/18 06:39 Labs: Abnormal Lab Results - Last 24 Hours (Table) 04/04/18 Range/Units 06:39 Chloride 94 L (98-107) mmol/L Carbon Dioxide 36 H (22-30) mmol/L BUN 63 H (9-20) mg/dL Creatinine 2.36 H (0.66-1.25) mg/dL Glucose 101 H (74-99) mg/dL Microbiology - Last 24 Hours (Table) 04/03/18 11:39 Body Fluid Culture - Preliminary Peritoneal Fluid 03/30/18 13:50 Blood Culture - Preliminary Blood No Growth after 96 hours Assessment and Plan Plan: Assessment 1 acute exacerbation of chronic systolic heart failure him a clinically much improved as the patient got diuresed with IV Lasix and the patient underwent thoracentesis of the right lung. 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 The patient is post UPPP 12 depression 13 COPD 14 obesity 15 troponin leak Plan Continue IV Lasix. Continue CPAP therapy at pressure of 11 cm of water. Monitor renal function. Monitor progress. Continue anticoagulation with warfarin maintaining an INR between 2 and 3. Clinically much improved. We'll continue to follow. Subsequent chest x-ray was noted in the volume status is improved and there is no complications related to thoracentesis.
[2018-04-04 12:12] LABS: Glucose,Whole Blood 125 mg/dL (75-99)
[2018-04-04] MEDS: LINAGLIPTIN 5 MG TABLET PO SCH (12:12)
--- NOTE | 2018-04-04 12:12 | P.PN ---
Subjective Patient seems more comfortable after thoracentesis 2 L of fluid were drained yesterday. He still has right lower extremity edema right greater than left Blood pressure 115/62 mmHg ulcerated 106 beats a minute afebrile 96.7F Breath sounds are reduced bilaterally at both bases Heart sounds S1 and S2 are soft and irregular Abdomen is soft nontender Right lower extremity edema Suggest Continue current therapy with IV Lasix and metolazone, watch potassium continue Coumadin for stroke prevention continue rate control of atrial fibrillation Objective - Vital Signs Vital signs: Vital Signs Temp 96.7 F L 04/04/18 11:39 Pulse 93 04/04/18 11:39 Resp 20 04/04/18 11:39 BP 115/62 04/04/18 11:39 Pulse Ox 96 04/04/18 11:39 Intake & Output 04/03/18 04/04/18 04/04/18 18:59 06:59 18:59 Intake Total 716 180 Output Total 3950 2400 300 Balance -3234 -2400 -120 Weight 107.5 kg Intake: Oral 716 180 Output: Urine 1950 2400 300 Other 2000 Other: Voiding Method Toilet Toilet Toilet # Voids 1 # Bowel Movements 1 1 - Labs CBC & Chem 7: 03/30/18 13:50 04/04/18 06:39 Labs: Abnormal Lab Results - Last 24 Hours (Table) 04/04/18 Range/Units 06:39 Chloride 94 L (98-107) mmol/L Carbon Dioxide 36 H (22-30) mmol/L BUN 63 H (9-20) mg/dL Creatinine 2.36 H (0.66-1.25) mg/dL Glucose 101 H (74-99) mg/dL Microbiology - Last 24 Hours (Table) 04/03/18 11:39 Body Fluid Culture - Preliminary Peritoneal Fluid 03/30/18 13:50 Blood Culture - Preliminary Blood No Growth after 96 hours
--- NOTE | 2018-04-04 13:49 | P.PN ---
Subjective Patient admitted with the CHF exacerbation acute hypoxemia patient underwent thoracentesis with removal of 2 L of fluid in the from the right side. Patient remains on IV Lasix. On metolazone patient has chronic kidney disease stage IV nephrology cardiology and pulmonary are following the patient. Patient has history of atrial fibrillation therapeutic on Coumadin INR of 2 today. Patient appears to have valvular A. fib. Constitutional: Denied any fatigue denied any fever. Cardio vascular: denied any chest pain, palpitations Gastrointestinal denied any nausea vomiting Pulmonary: Denied any shortness of breath cough Neurologic denied any new focal deficits Objective - Vital Signs Vital signs: Vital Signs Temp 96.7 F L 04/04/18 11:39 Pulse 93 04/04/18 11:39 Resp 20 04/04/18 11:39 BP 115/62 04/04/18 11:39 Pulse Ox 96 04/04/18 11:39 Intake & Output 04/03/18 04/04/18 04/04/18 18:59 06:59 18:59 Intake Total 716 180 Output Total 3950 2400 800 Balance -3234 -2400 -620 Weight 107.5 kg Intake: Oral 716 180 Output: Urine 1950 2400 800 Other 2000 Other: Voiding Method Toilet Toilet Toilet # Voids 1 # Bowel Movements 1 1 - Exam PHYSICAL EXAMINATION: GENERAL: The patient is alert and oriented x3, not in any acute distress. Well developed, well nourished. HEENT: Pupils are round and equally reacting to light. EOMI. No scleral icterus. No conjunctival pallor. Normocephalic, atraumatic. No pharyngeal erythema. No thyromegaly. CARDIOVASCULAR: S1 and S2 present. No murmurs, rubs, or gallops. PULMONARY: Chest is clear to auscultation, no wheezing or crackles. ABDOMEN: Soft, nontender, nondistended, normoactive bowel sounds. No palpable organomegaly. MUSCULOSKELETAL: No joint swelling or deformity. EXTREMITIES: No cyanosis, clubbing, or pedal edema. NEUROLOGICAL: Gross neurological examination did not reveal any focal deficits. SKIN: No rashes. - Labs CBC & Chem 7: 03/30/18 13:50 04/04/18 06:39 Labs: Abnormal Lab Results - Last 24 Hours (Table) 04/04/18 04/04/18 Range/Units 06:39 12:11 Chloride 94 L (98-107) mmol/L Carbon Dioxide 36 H (22-30) mmol/L BUN 63 H (9-20) mg/dL Creatinine 2.36 H (0.66-1.25) mg/dL Glucose 101 H (74-99) mg/dL POC Glucose (mg/dL) 125 H (75-99) mg/dL Microbiology - Last 24 Hours (Table) 04/03/18 11:39 Body Fluid Culture - Preliminary Peritoneal Fluid 03/30/18 13:50 Blood Culture - Preliminary Blood No Growth after 96 hours Assessment and Plan Plan: -Acute hypoxic respiratory failure secondary to congestive heart failure chronic systolic dysfunction with acute exacerbation patient's EF is 20-25% patient is an above-mentioned treatment with IV Lasix had thoracentesis as today -Right sided pleural effusion status post thoracocentesis removal of 2 L of fluid secondary to CHF -Moderate aortic stenosis -Severe pulmonary hypertension -Atrial fibrillation presently rate controlled on Coumadin rate controlled resumed back on his Coumadin. Patient has persistent A. fib presently rate controlled -Sleep apnea continue with CPAP machine -Coronary artery disease with previous stents in the past -Chronic kidney disease stage IV -Hyperlipidemia -History of gout
[2018-04-04] MEDS: GLYCOPYRROLATE INHALATION SCH (15:38)
[2018-04-04] MEDS: INDACATEROL INHALATION SCH (15:38)
[2018-04-04] MEDS: WARFARIN 2.5 MG TAB PO SCH (17:22)
[2018-04-04] MEDS: ALPRAZolam 0.25 MG TAB PO PRN (20:35)
[2018-04-04] MEDS: GABAPENTIN 100 MG CAP PO SCH (20:36)
[2018-04-04] MEDS: ATORVASTATIN 20 MG TAB PO SCH (20:36)
[2018-04-05 06:12] LABS: INR 1.3 (<1.2); Prothrombin Time 12.6 sec (9.0-12.0)
[2018-04-05 06:15] LABS: Calcium 9.6 mg/dL (8.4-10.2); Potassium 3.2 mmol/L (3.5-5.1)
[2018-04-05] MEDS: CARVEDILOL 3.125 MG TAB PO SCH (06:44)
[2018-04-05] MEDS ORDERED: Potassium Replacement Protocol 1 EACH MISC MISCELLANE PRN (07:39)
[2018-04-05 08:03] VITALS: PULSE 93; RESP 16
[2018-04-05] MEDS: POTASSIUM CHLORIDE ER 20 MEQ TAB.ER PO SCH ×2 (08:05→08:40)
[2018-04-05] MEDS: COLCHICINE 0.6 MG EACH PO SCH (08:05)
[2018-04-05] MEDS: ALLOPURINOL 100 MG TAB PO SCH (08:05)
[2018-04-05] MEDS: FAMOTIDINE 20 MG TAB PO SCH (08:06)
[2018-04-05] MEDS: METOLAZONE 5 MG TAB PO SCH (08:06)
[2018-04-05] MEDS: LINAGLIPTIN 5 MG TABLET PO SCH (08:06)
[2018-04-05] MEDS: FUROSEMIDE 10 MG/ML 10 ML VIAL IV SCH (08:08)
[2018-04-05] MEDS: WARFARIN 2.5 MG TAB PO SCH (09:47)
--- NOTE | 2018-04-05 10:17 | P.PN ---
Subjective Progress Note Date: 04/05/18 Principal diagnosis: This is a 77-year-old male seen in consultation because of acute kidney injury and chronic kidney disease. He came in because of shortness of breath. He has been vigorously diuresed. Additionally he had a pleural Tap done day before yesterday 04/03/2018 on the right lung and 2000 mL were aspirated. Is feeling much better this morning less short of breath able to walk. He is known with obstructive CPAP and uses a BiPAP. He wants to be discharged. His urine output is 2100 mL the last 24 hours. Appetite is good. Is known with atrial fibrillation chronic kidney disease stage IV, GFR is in high 20s range, and the creatinine about 2, history of prostate cancer Objective - Vital Signs Vital signs: Vital Signs Temp 97.9 F 04/05/18 08:00 Pulse 93 04/05/18 08:00 Resp 16 04/05/18 08:00 BP 109/57 04/05/18 08:00 Pulse Ox 94 L 04/05/18 08:00 Intake & Output 04/04/18 04/05/18 04/05/18 18:59 06:59 18:59 Intake Total 600 180 Output Total 900 1200 600 Balance -300 -1200 -420 Weight 103.6 kg Intake: Oral 600 180 Output: Urine 900 1200 600 Other: Voiding Method Toilet Toilet Toilet # Voids 1 # Bowel Movements 1 On exam she is awake alert comfortable sitting in a chair. HEENT exam no JVP neck is supple no facial asymmetry Lungs are clear to auscultation good air entry bilaterally except for an occasional coarse crackle at the right base that did not clear with cough. Heart sounds are unremarkable for any murmur rub gallop Abdomen soft nontender no ascites Extremity exam was mild edema Neurologically awake alert oriented - Labs CBC & Chem 7: 03/30/18 13:50 04/05/18 05:36 Labs: Abnormal Lab Results - Last 24 Hours (Table) 04/04/18 04/05/18 04/05/18 Range/Units 12:11 05:36 05:36 PT 12.6 H (9.0-12.0) sec INR 1.3 H (<1.2) Potassium 3.2 L (3.5-5.1) mmol/L Chloride 93 L (98-107) mmol/L Carbon Dioxide 38 H (22-30) mmol/L BUN 68 H (9-20) mg/dL Creatinine 2.58 H (0.66-1.25) mg/dL POC Glucose (mg/dL) 125 H (75-99) mg/dL Microbiology - Last 24 Hours (Table) 04/03/18 11:39 Gram Stain - Preliminary Peritoneal Fluid Body Fluid Culture - Preliminary 03/30/18 13:50 Blood Culture - Preliminary Blood No Growth after 120 hours Assessment and Plan Assessment: Impression 1. Acute kidney injury secondary to cardiorenal syndrome and improving slowly. Currently on Zaroxolyn and Lasix 60 every 12. Creatinine improved from 2.6 on 03/31/2018 to 2.36 yesterday, went up slightly to 2.58 this morning. He had good urine output of 2100 mL yesterday and previously day before yesterday 43 50 mL an additional 2000 mL of pleural tap. 2. Chronic kidney disease stage IV Baseline creatinine 2. GFR is in the 20 range 3. history of cardiomyopathy ejection fraction 20% 4. Diabetes mellitus. 5. History of COPD and obstructive sleep apnea on BiPAP 6. Metabolic alkalosis bicarb going up slowly from 32-36, 238 now. This is from diuresis and possible element of volume depletion Recommendation. 1. Patient can be discharged today, 2. Patient is currently on Lasix 80 twice a day. He can be discharged on this dose. 3. Discontinue the metolazone. 4. Should be followed up in our office on. 04/08/2018. Maintain blood pressure logs and weight records. 5. Prescription given for labs to be drawn including basic metabolic panel and CBC on Friday before he is. 6. Will watch his bicarb on reduced dose of diuretics. He may need Diamox but this would be addressed as an outpatient
--- NOTE | 2018-04-05 10:56 | P.PN ---
Subjective Mr. Peacock is seen and examined resting comfortably laying flat in bed in no acute distress. His lower extremity edema has greatly improved. He is s/p 2 liter fluid drainage. Laboratory data reviewed, INR 1.3, sodium 140, potassium 3.2, creatinine 2.58. Blood pressure 109/57 heart rate 93 afebrile maintaining oxygen saturation on room air. Currently maintained on Lasix IV and metaxalone. He denies symptoms of chest pain, shortness of breath, dizziness or palpitations. Telemetry markings unremarkable. GENERAL: Well-appearing, well-nourished and in no acute distress. NECK: Supple without JVD or thyromegaly. LUNGS: Breath sounds clear to auscultation bilaterally. Respiration equal and unlabored. No wheezes, rales or rhonchi. Diminished bilaterally. HEART: Irregular rate and rhythm with systolic ejection murmur at the base, no rubs or gallops. S1 and S2 heard. EXTREMITIES: Normal range of motion, no edema. No clubbing or cyanosis. Peripheral pulses intact. ASSESSMENT Acute on chronic systolic heart failure status post thoracentesis Chronic persistent atrial fibrillation on long-term anticoagulation Subtherapeutic INR secondary to holding of anticoagulation for thoracentesis, continue Coumadin Acute on chronic renal insufficiency History of coronary artery disease status post stenting of the mid LAD 1996 Ischemic cardiomyopathy status post AICD implantation Hypertension Dyslipidemia Abnormal troponins, not consistent with an acute coronary syndrome likely secondary to supply demand mismatch PLAN Transitioned to oral diuretics. Patient has greatly improved fluid volume status. Hemodynamically stable Continue current medical regimen. Stable from a cardiac perspective, we will continue to see the patient as needed for the remainder of his admission. Follow-up in the office on discharge with Dr. Hernández. Nurse Practitioner note has been reviewed, I agree with a documented findings and plan of care. Patient was seen and examined. Objective - Vital Signs Vital signs: Vital Signs Temp 97.9 F 04/05/18 08:00 Pulse 93 04/05/18 08:00 Resp 16 04/05/18 08:00 BP 109/57 04/05/18 08:00 Pulse Ox 94 L 04/05/18 08:00 Intake & Output 04/04/18 04/05/18 04/05/18 18:59 06:59 18:59 Intake Total 600 180 Output Total 900 1200 600 Balance -300 -1200 -420 Weight 103.6 kg Intake: Oral 600 180 Output: Urine 900 1200 600 Other: Voiding Method Toilet Toilet Toilet # Voids 1 # Bowel Movements 1 - Labs CBC & Chem 7: 03/30/18 13:50 04/05/18 05:36 Labs: Abnormal Lab Results - Last 24 Hours (Table) 04/04/18 04/05/18 04/05/18 Range/Units 12:11 05:36 05:36 PT 12.6 H (9.0-12.0) sec INR 1.3 H (<1.2) Potassium 3.2 L (3.5-5.1) mmol/L Chloride 93 L (98-107) mmol/L Carbon Dioxide 38 H (22-30) mmol/L BUN 68 H (9-20) mg/dL Creatinine 2.58 H (0.66-1.25) mg/dL POC Glucose (mg/dL) 125 H (75-99) mg/dL Microbiology - Last 24 Hours (Table) 04/03/18 11:39 Gram Stain - Preliminary Peritoneal Fluid Body Fluid Culture - Preliminary 03/30/18 13:50 Blood Culture - Preliminary Blood No Growth after 120 hours
--- NOTE | 2018-04-05 11:20 | P.PN ---
Subjective Progress Note Date: 04/05/18 Principal diagnosis: Acute exacerbation of chronic systolic heart failure, improved 77-year-old male patient with multiple medical problems and comorbidities who got admitted yesterday because of worsening shortness of breath, exertional dyspnea and orthopnea to the point where the patient was unable to lay down flat. The patient at increased lower extremity edema. He had no chest pain. No pleurisy. No hemoptysis. No cough or sputum production and he denied having any fever or chills. The patient was taken Lasix in a total of 120 mg on a daily basis. He has been compliant to his outpatient medication. Chest x- ray on admission showed bilateral pleural effusion right more than left and the patient has central venous congestion in addition to a pacer/AICD over the left anterior chest area. There was troponin leak with troponin levels of 0.08 0.08 0.07 respectively 3. ProBNP level was 12,000. Note that this patient has history of COPD and his FEV1 is no other of 30% of predicted. He also has chronic systolic heart failure, obstructive sleep apnea and is been maintained on CPAP therapy at a pressure of 11 cm of water. The patient has severe SILVER with an AHI of 33 at Baseline. He is obese. He also suffers from chronic renal failure and he has chronic stage III kidney disease. His last available echocardiogram was from May 2016 and the patient was found to have moderate impairment of the LV function with an ejection fraction of 35-40% and there was elevated and Levaquin ventricular end-diastolic pressure and segmental wall motion abnormalities. There was also some mild to moderate degree of pulmonary hypertension. There is mild aortic stenosis condition. The patient has chronic atrial fibrillation and he is on long-term anticoagulation with warfarin. He is known to have also previous coronary artery disease and previous coronary intervention to his LAD. Currently, the patient is feeling slightly better is currently on Lasix drip and is producing adequate amount of urine output. He is less short of breath compared to yesterday. He also has been reported interstitial lung disease/Doshi's lung although the specifics of this diagnosis is not clear to me at this point. The patient is seen again today 04/01/2018 in follow-up on the selective care unit. He is currently sitting up in a chair at the bedside. He is awake and alert in no acute distress. He is breathing easier today as compared to yesterday. He remains on a Lasix drip at 10 mg per hour. Creatinine 2.5. INR 3.3. He remains afebrile. O2 saturation 90% on room air. Remains in A. fib. Edema is improving. The patient is seen again today 04/02/2018 in follow-up on the selective care unit. He is currently resting comfortably in bed. His nasal CPAP is in place. He states his breathing is improved today as compared to yesterday. He is actually maintaining good O2 saturations in the 90s on room air. He's afebrile. Blood culture reveals no growth. INR 3.1. Creatinine 2.43. Ultrasound of the chest reveals a right pleural effusion 8.9 cm, left pleural effusion 1.4 cm. The patient is seen again today 04/03/2018 in follow-up on the selective care unit. He is currently sitting up in a chair at the bedside. He is awake and alert in no acute distress. His breathing is still not back to his baseline. He still dyspneic on exertion. He is maintaining good O2 saturations in the 90s on room air. He's been afebrile. Chest ultrasound didn't show significant right-sided pleural effusion. He did undergo a thoracentesis today with Dr. Malave. 2000 ML's of straw colored fluid removed. Fluid was sent for analysis/cytology. On 04/04/2018, the patient is feeling much better. He underwent a thoracentesis yesterday and the right-sided pleural effusion was drained. Subsequent chest x-ray shows small amount of bilateral pleural effusion slightly worse on the left. Meanwhile, the patient is being diuresis with IV Lasix. The patient is receiving Lasix pushes 60 mg IV every 12 hours. The fluid balance is -5.6 L yesterday and the patient's BUN/creatinine are stable with a BUN of 63 and creatinine of 2.3. He is able to lay down flat in bed. Lower extremity edema is also improving. No nausea. No vomiting. No chest pain. No other complaints otherwise for now. His INR is at 2.0 from yesterday. On 04/05/2018 patient seen in follow-up on selective care unit. He is status post right thoracentesis, on 04/03/2018, he remains on IV diuretics, and continues to diurese. he is in -5634 mL negative fluid balance over the last 24 hours, his weight is coming down, currently at 103.6 kg, down from 111.7 kg since admission. No shortness of breath, no chest pain, patient is wearing his CPAP unit at night only. Today's labs have been reviewed, INR is 1.3, potassium is 3.2, this has been replaced per protocol, renal profile is relatively stable, with B1 of 68, creatinine is 2.58. After speaking to cardiology, it was decided that his IV diuretics can be transitioned to oral Lasix, and 80 mg twice daily. Pleural fluid analysis revealed a transudate of fluid, fluid cultures are pending. Patient is afebrile. Bilateral lower extremity edema is improving, patient has some chronic swelling in his right lower extremity compared to the left, but overall the swelling has improved. His been cleared for discharge home cardiology possibly today or tomorrow. From pulmonary perspective patient remains stable, improved, and could be considered for discharge in the next 24 hours. Objective - Vital Signs Vital signs: Vital Signs Temp 97.9 F 04/05/18 08:00 Pulse 93 04/05/18 08:00 Resp 16 04/05/18 08:00 BP 109/57 04/05/18 08:00 Pulse Ox 94 L 04/05/18 08:00 Intake & Output 04/04/18 04/05/18 04/05/18 18:59 06:59 18:59 Intake Total 600 180 Output Total 900 1200 600 Balance -300 -1200 -420 Weight 103.6 kg Intake: Oral 600 180 Output: Urine 900 1200 600 Other: Voiding Method Toilet Toilet Toilet # Voids 1 # Bowel Movements 1 - Exam Gen. appearance, comfortable lying acute distress Head exam was generally normal. There was no scleral icterus or corneal arcus. Mucous membranes were moist. Neck was supple and with jugular venous distension, thyromegaly, or carotid bruits. Carotids were easily palpable bilaterally. There was no adenopathy. The patient undergone UPPP regarding a previous obstructive sleep apnea diagnosis. He does have some mild JVDs. Lung sounds are diminished in the lung bases and there are some bibasilar crackles right greater than left. Heart sounds are irregular, positive sinus and there is no significant murmurs appreciated. Abdomen is obese soft nontender. Organs cannot be accurately palpated. No direct tenderness amount of solid guarding. Extremities revealed improving edema lower extremity is bilaterally. No cyanosis. No clubbing. Examination of the skin revealed no evidence of significant rashes, suspicious appearing nevi or other concerning lesions. Neurologically awake and alert and there is no focal neurological deficit at this point. - Labs CBC & Chem 7: 03/30/18 13:50 04/05/18 05:36 Labs: Abnormal Lab Results - Last 24 Hours (Table) 04/04/18 04/05/18 04/05/18 Range/Units 12:11 05:36 05:36 PT 12.6 H (9.0-12.0) sec INR 1.3 H (<1.2) Potassium 3.2 L (3.5-5.1) mmol/L Chloride 93 L (98-107) mmol/L Carbon Dioxide 38 H (22-30) mmol/L BUN 68 H (9-20) mg/dL Creatinine 2.58 H (0.66-1.25) mg/dL POC Glucose (mg/dL) 125 H (75-99) mg/dL Microbiology - Last 24 Hours (Table) 04/03/18 11:39 Gram Stain - Preliminary Peritoneal Fluid Body Fluid Culture - Preliminary 03/30/18 13:50 Blood Culture - Preliminary Blood No Growth after 120 hours Assessment and Plan Plan: 1 acute exacerbation of chronic systolic heart failure him a clinically much improved as the patient got diuresed with IV Lasix and the patient underwent thoracentesis of the right lung, pleural fluid analysis showed transudate 2 exertional dyspnea and orthopnea and increased lower extremity edema secondary to above, improving 3 CHF with a previous ejection fraction of 35% based on echocardiogram from May 2016 4 coronary artery disease with previous coronary intervention and stenting of the LAD 5 mild aortic stenosis 6 chronic stage III kidney disease 7 chronic atrial fibrillation maintained on warfarin on outpatient basis 8 hypertension 9 hyperlipidemia 10 remote history of CVA followed by seizure currently inactive in stable 11 obstructive sleep apnea maintained on CPAP at a pressure of 11 cm of water. The patient is post UPPP 12 depression 13 COPD 14 obesity 15 troponin leak Plan Patient's dyspnea has significantly improved, he is fluid balance is improved, he is in -5600 mL fluid balance, oxygenation is stable, currently on room air, and pulse ox is 94%, denies any chest pain or shortness of breath. After discussing case with cardiology IV Lasix will be switched to oral Lasix at 80 mg twice daily. Continue with CPAP use at home settings. From pulmonary perspective patient can be cleared for discharge home in the next 24 hours. Patient has been cleared for discharge by cardiology as well I performed a history & physical examination of the patient and discussed their management with my nurse practitioner, Nat Rouse. I reviewed the nurse practitioner's note and agree with the documented findings and plan of care. Lung sounds are positive for limited bibasilar crackles. The findings and the impression was discussed with the patient. I attest to the documentation by the nurse practitioner. Time with Patient: Less than 30
[2018-04-05 11:34] VITALS: BP 123/81; TEMP 98.6
--- NOTE | 2018-04-05 12:34 | P.DS ---
Providers Date of admission: 03/30/18 14:50 Attending physician: Drarius Davis Consults: 03/30/18 14:51 Consult Physician Routine Consulting Provider: Jose Leone Consult Reason/Comments: CHF, troponin elevation Do you want consulting provider notified?: Yes 03/30/18 22:54 Consult Physician Routine Consulting Provider: Rodney Malave Consult Reason/Comments: sob Do you want consulting provider notified?: Yes Consult Physician Routine Consulting Provider: Rajinder Gale Consult Reason/Comments: renal failure Do you want consulting provider notified?: Yes Primary care physician: Sudhir [facility] Course: Patient admitted with the CHF exacerbation acute hypoxemia patient underwent thoracentesis with removal of 2 L of fluid in the from the right side. Patient remains on IV Lasix. On metolazone patient has chronic kidney disease stage IV nephrology cardiology and pulmonary are following the patient. Patient has history of atrial fibrillation therapeutic on Coumadin INR of 2 today. Patient appears to have valvular A. fib. 04/05/2018 Patient is clinically doing well will be discharged today patient is euvolemic does have bilateral pedal edema still although significantly improved. Patient is off oxygen. Patient INR it has gone down was resumed on Coumadin yesterday because of which I'm expecting it'll improve in next 3-4 days PHYSICAL EXAMINATION: GENERAL: The patient is alert and oriented x3, not in any acute distress. Well developed, well nourished. HEENT: Pupils are round and equally reacting to light. EOMI. No scleral icterus. No conjunctival pallor. Normocephalic, atraumatic. No pharyngeal erythema. No thyromegaly. CARDIOVASCULAR: S1 and S2 present. No murmurs, rubs, or gallops. PULMONARY: Chest is clear to auscultation, no wheezing or crackles. ABDOMEN: Soft, nontender, nondistended, normoactive bowel sounds. No palpable organomegaly. MUSCULOSKELETAL: No joint swelling or deformity. EXTREMITIES: No cyanosis, clubbing, or pedal edema. NEUROLOGICAL: Gross neurological examination did not reveal any focal deficits. SKIN: No rashes. Assessment and Plan Plan: -Acute hypoxic respiratory failure secondary to congestive heart failure chronic systolic dysfunction with acute exacerbation patient's EF is 20-25% patient is an above-mentioned treatment with IV Lasix had thoracentesis as today -Right sided pleural effusion status post thoracocentesis removal of 2 L of fluid, secondary to CHF -Moderate aortic stenosis -Severe pulmonary hypertension -Atrial fibrillation presently rate controlled on Coumadin rate controlled resumed back on his Coumadin. Patient has persistent A. fib presently rate controlled -Sleep apnea continue with CPAP machine -Coronary artery disease with previous stents in the past -Chronic kidney disease stage IV -Hyperlipidemia -History of gout Patient Condition at Discharge: Stable Plan - Discharge Summary Discharge Rx Participant: No New Discharge Prescriptions: New Carvedilol [Coreg] 3.125 mg PO BID-W/MEALS #60 tab Furosemide [Lasix] 80 mg PO BID@0900,1600 #0 tab Metolazone [Zaroxolyn] 5 mg PO DAILY #30 tab Continue Simvastatin [Zocor] 40 mg PO HS sitaGLIPtin PHOSPHATE [Januvia] 50 mg PO DAILY #30 tab Acetaminophen Tab [Tylenol] 500 mg PO Q4-6H PRN PRN Reason: Pain Warfarin [Coumadin] 2.5 mg PO SUTUWEFRSA Warfarin [Coumadin] 5 mg PO MOTH Gabapentin [Neurontin] 100 mg PO HS Nizatidine [Axid] 150 mg PO DAILY Nitroglycerin Sl Tabs [Nitrostat] 0.4 mg SUBLINGUAL Q5M PRN PRN Reason: Chest Pain Indacaterol/Glycopyrrolate [Utibron Neohaler 27.5-15.6 Mcg] 1 puff INHALATION RT-DAILY@1300 Febuxostat [Uloric] 80 mg PO QAM Colchicine [Colcrys] 0.6 mg PO DAILY Artificial Tears-Hypromellose [Artificial Tear Drops] 1 drop BOTH EYES QID PRN PRN Reason: Dry Eye(S) Sodium Chloride [[place]] 1 spray EA NOSTRIL DAILY PRN PRN Reason: Dry Nasal Passages Discontinued Furosemide [Lasix] 40 mg PO W/SUPPER Carvedilol [Coreg] 12.5 mg PO BID Furosemide [Lasix] 80 mg PO QAM Discharge Medication List Simvastatin [Zocor] 40 mg PO HS 01/26/14 [History] sitaGLIPtin PHOSPHATE [Januvia] 50 mg PO DAILY #30 tab 05/23/16 [Rx] Acetaminophen Tab [Tylenol] 500 mg PO Q4-6H PRN 07/24/16 [History] Gabapentin [Neurontin] 100 mg PO HS 07/24/16 [History] Warfarin [Coumadin] 2.5 mg PO SUTUWEFRSA 07/24/16 [History] Warfarin [Coumadin] 5 mg PO MOTH 07/24/16 [History] Nizatidine [Axid] 150 mg PO DAILY 09/11/16 [History] Colchicine [Colcrys] 0.6 mg PO DAILY 10/28/17 [History] Febuxostat [Uloric] 80 mg PO QAM 10/28/17 [History] Indacaterol/Glycopyrrolate [Utibron Neohaler 27.5-15.6 Mcg] 1 puff INHALATION RT -DAILY@1300 10/28/17 [History] Nitroglycerin Sl Tabs [Nitrostat] 0.4 mg SUBLINGUAL Q5M PRN 10/28/17 [History] Artificial Tears-Hypromellose [Artificial Tear Drops] 1 drop BOTH EYES QID PRN 03/30/18 [History] Sodium Chloride [[place]] 1 spray EA NOSTRIL DAILY PRN 03/30/18 [History] Carvedilol [Coreg] 3.125 mg PO BID-W/MEALS #60 tab 04/05/18 [Rx] Furosemide [Lasix] 80 mg PO BID@0900,1600 #0 tab 04/05/18 [Rx] Metolazone [Zaroxolyn] 5 mg PO DAILY #30 tab 04/05/18 [Rx] Follow up Appointment(s)/Referral(s): Geeta Garcia MD [STAFF PHYSICIAN] - 3 Days (BRING DAILY WEIGHT LIST AND BP LIST TO OFFICE LABWORK CALL OFFICE Friday FOR APPOINTMENT TIME ) Steve Hernández MD [STAFF PHYSICIAN] - 1 Week (CHECK INR IN OFFICE FOR COUMADIN CALL OFFICE FRIDAY AM FOR APPOINTMENT TIME) Sudhir Coreas MD [Primary Care Provider] - 04/10/18 1:00 pm (Friday) Rodney Malave MD [Family Provider] - 1 Week (CALL OFFICE FRIDAY AM FOR APPOINTMENT TIME) Patient Instructions/Handouts: Heart Failure (DC) Discharge Disposition: HOME SELF-CARE
[2018-04-05] MEDS: GLYCOPYRROLATE INHALATION SCH (13:01)
[2018-04-05] MEDS: INDACATEROL INHALATION SCH (13:01)
[2018-04-05] MEDS ORDERED: FUROSEMIDE 80 MG TAB PO SCH (16:00)
[2018-04-05] MEDS ORDERED: WARFARIN 5 MG TAB PO ONE (18:00)
== END 2018-04-05 14:39 | disposition home or self-care (01) | DRG 291 ==
LOC: EC 13:23 → 6SEL 14:50
PROVIDERS: ADMIT Hospitalist; ATTEND Hospitalist
PROC: 0W993ZX Drainage of Right Pleural Cavity, Percutaneous Approach, Diagnostic (ICD-10-PCS; principal; 2018-04-03)
DX: I13.0 Hypertensive heart and chronic kidney disease with heart failure and stage 1 through stage 4 chronic kidney disease, or unspecified chronic kidney disease (principal); I50.23 Acute on chronic systolic (congestive) heart failure; J96.21 Acute and chronic respiratory failure with hypoxia; E87.3 Alkalosis; I48.1 Persistent atrial fibrillation; J84.9 Interstitial pulmonary disease, unspecified; N17.9 Acute kidney failure, unspecified; N18.4 Chronic kidney disease, stage 4 (severe); I24.8 Other forms of acute ischemic heart disease; J90 Pleural effusion, not elsewhere classified; E11.22 Type 2 diabetes mellitus with diabetic chronic kidney disease; E66.9 Obesity, unspecified; Z68.32 Body mass index [BMI] 32.0-32.9, adult; E78.5 Hyperlipidemia, unspecified; F32.9 Major depressive disorder, single episode, unspecified; G47.33 Obstructive sleep apnea (adult) (pediatric); H35.30 Unspecified macular degeneration; H40.9 Unspecified glaucoma; I08.2 Rheumatic disorders of both aortic and tricuspid valves; I25.10 Atherosclerotic heart disease of native coronary artery without angina pectoris; I25.2 Old myocardial infarction; I25.5 Ischemic cardiomyopathy; I27.29 Other secondary pulmonary hypertension; I48.2 Chronic atrial fibrillation; J44.9 Chronic obstructive pulmonary disease, unspecified; J67.0 Farmer's lung; M19.91 Primary osteoarthritis, unspecified site; M1A.9XX0 Chronic gout, unspecified, without tophus (tophi); R32 Unspecified urinary incontinence; Z79.01 Long term (current) use of anticoagulants; Z79.84 Long term (current) use of oral hypoglycemic drugs; Z79.899 Other long term (current) drug therapy; Z80.1 Family history of malignant neoplasm of trachea, bronchus and lung; Z85.46 Personal history of malignant neoplasm of prostate; Z86.73 Personal history of transient ischemic attack (TIA), and cerebral infarction without residual deficits; Z87.442 Personal history of urinary calculi; Z87.891 Personal history of nicotine dependence; Z95.5 Presence of coronary angioplasty implant and graft; Z95.810 Presence of automatic (implantable) cardiac defibrillator; Z96.642 Presence of left artificial hip joint; Z98.42 Cataract extraction status, left eye; Z98.41 Cataract extraction status, right eye; Z88.0 Allergy status to penicillin; Z88.2 Allergy status to sulfonamides; Z88.8 Allergy status to other drugs, medicaments and biological substances; Z91.040 Latex allergy status; Z88.5 Allergy status to narcotic agent
CPT/HCPCS: 36415; 71045; 71046; 76604; 80048; 80053; 81001; 82550; 82553; 82945; 83615; 83735; 83880; 84157; 84484; 85025; 85610; 85730; 87040; 87070; 87205; 88108; 88305; 93005; 93306; 96365; 96375; 99285

== ENCOUNTER → 2018-04-07 | Outpatient (CLI) | payer MEDICARE, BC ==
[2018-04-07 12:14] LABS: HCT 39.4 % (39.0-53.0); HGB 12.6 gm/dL (13.0-17.5); MCH 30.2 pg (25.0-35.0); MCV 94.3 fL (80.0-100.0); Platelet Count 140 k/uL (150-450); RBC 4.18 m/uL (4.30-5.90); RDW 15.3 % (11.5-15.5); WBC 6.2 k/uL (3.8-10.6)
[2018-04-07 12:27] LABS: Potassium 3.1 mmol/L (3.5-5.1)
== END ==
LOC: LABWHC1 11:12
PROVIDERS: ATTEND Internal Medicine Nephrology
DX: N18.9 Chronic kidney disease, unspecified (principal); I50.9 Heart failure, unspecified
CPT/HCPCS: 36415; 80051; 82565; 84520; 85027

== ENCOUNTER → 2018-04-13 | Outpatient (CLI) | payer MEDICARE, BC ==
[2018-04-13 11:25] LABS: Basophils # (A) 0.1 k/uL (0-0.2); Basophils % (A) 1 %; Eosinophils # (A) 0.3 k/uL (0-0.7); Eosinophils % (A) 6 %; HCT 41.7 % (39.0-53.0); HGB 13.4 gm/dL (13.0-17.5); Lymphocytes # (A) 0.6 k/uL (1.0-4.8); Lymphocytes % (A) 13 %; MCH 29.5 pg (25.0-35.0); MCHC 32.1 g/dL (31.0-37.0); MCV 91.9 fL (80.0-100.0); Mean Platelet Volume 7.1; Monocytes # (A) 0.6 k/uL (0-1.0); Monocytes % (A) 12 %; Neutrophils # (A) 3.1 k/uL (1.3-7.7); Neutrophils % (A) 63 %; Platelet Count 187 k/uL (150-450); RBC 4.54 m/uL (4.30-5.90); WBC 4.9 k/uL (3.8-10.6)
[2018-04-13 11:46] LABS: Potassium 2.8 mmol/L (3.5-5.1)
[2018-04-13 12:53] LABS: Calcium 9.7 mg/dL (8.4-10.2); Magnesium 2.4 mg/dL (1.6-2.3); Uric Acid 8.5 mg/dL (3.5-8.5)
[2018-04-13 16:19] LABS: Iron Saturation 19.24 (15.00-50.00)
== END | disposition home or self-care (01) ==
LOC: LABWHC1 10:22
PROVIDERS: ATTEND Nurse Practitioner Family
DX: N18.3 Chronic kidney disease, stage 3 (moderate) (principal)
CPT/HCPCS: 36415; 80048; 82728; 83540; 83550; 83735; 84550; 85025

== ENCOUNTER → 2018-04-24 | Outpatient (CLI) | payer MEDICARE, BC ==
[2018-04-24 14:57] LABS: Basophils % (A) 1 %; Eosinophils # (A) 0.3 k/uL (0-0.7); Eosinophils % (A) 7 %; HCT 42.6 % (39.0-53.0); HGB 13.4 gm/dL (13.0-17.5); Hypochromasia Slight; Lymphocytes # (A) 0.7 k/uL (1.0-4.8); Lymphocytes % (A) 16 %; MCH 30.1 pg (25.0-35.0); MCHC 31.6 g/dL (31.0-37.0); MCV 95.3 fL (80.0-100.0); Mean Platelet Volume 7.3; Monocytes # (A) 0.5 k/uL (0-1.0); Monocytes % (A) 10 %; Neutrophils # (A) 2.9 k/uL (1.3-7.7); Neutrophils % (A) 62 %; Platelet Count 118 k/uL (150-450); RBC 4.47 m/uL (4.30-5.90); WBC 4.6 k/uL (3.8-10.6)
[2018-04-24 15:47] LABS: Albumin 3.6 g/dL (3.5-5.0); Calcium 10.4 mg/dL (8.4-10.2); Magnesium 2.1 mg/dL (1.6-2.3); Phosphorus 3.3 mg/dL (2.5-4.5); Potassium 4.8 mmol/L (3.5-5.1); Uric Acid 4.6 mg/dL (3.5-8.5)
[2018-04-24 19:30] LABS: Iron Saturation 22.33 (15.00-50.00)
[2018-04-24 19:39] LABS: Vitamin D 25 Hydroxy 37.2 ng/mL (30.0-100.0)
== END | disposition home or self-care (01) ==
LOC: LABWHC1 14:24
PROVIDERS: ATTEND Nurse Practitioner Family
DX: E55.9 Vitamin D deficiency, unspecified (principal); E21.3 Hyperparathyroidism, unspecified; M10.9 Gout, unspecified; N64.9 Disorder of breast, unspecified; N18.3 Chronic kidney disease, stage 3 (moderate)
CPT/HCPCS: 36415; 80048; 82040; 82306; 82728; 83540; 83550; 83735; 83970; 84100; 84550; 85025

== ENCOUNTER → 2018-05-21 | Outpatient (CLI) | payer MEDICARE, BC ==
[2018-05-21 16:08] LABS: Prothrombin Time 53.8 sec (9.0-12.0)
[2018-05-21 16:12] LABS: INR 5.9 (<1.2)
[2018-05-22 03:09] LABS: Albumin 3.8 g/dL (3.80-4.90); Albumin/Globulin Ratio 1.58 (1.20-2.10); Calcium 9.2 mg/dL (8.7-10.3); Globulin 2.4 g/dL (2.1-3.7); Potassium 4.5 mmol/L (3.5-5.5); Total Protein 6.2 g/dL (6.2-8.2)
== END ==
LOC: LABWHC1 15:05
PROVIDERS: ATTEND Internal Medicine Critical Care Medicine
DX: I50.9 Heart failure, unspecified (principal)
CPT/HCPCS: 36415; 80053; 85610

== ENCOUNTER → 2018-05-25 | Day surgery (SDC) | payer MEDICARE, BC ==
[2018-05-25 11:40] VITALS: BP 105/66; PULSE 95; RESP 16; TEMP 97.5
[2018-05-25 12:05] LABS: INR 2.6 (<1.2)
--- NOTE | 2018-05-25 13:36 | US ---
EXAMINATION TYPE: US chest DATE OF EXAM: 05/25/2018 COMPARISON: CXR and US CLINICAL HISTORY: J90 PLEURAL EFFUSION. SOB, previous thora, h/o pleural effusion TECHNIQUE: Targeted ultrasound of the posterior lower right chest EXAM MEASUREMENTS: Right Pleural Effusion pocket size: 11.4 cm Right skin surface to fluid distance: 4.8 cm Right side marked for possible thoracentesis outside the dept. Pulmonologists are able to review the images in the patient?s EMR. IMPRESSIONS: There is a large right pleural effusion.
== END ==
LOC: RADUSWWP 10:43 → EDSTATUS 12:00
PROVIDERS: ATTEND Internal Medicine Critical Care Medicine
DX: J90 Pleural effusion, not elsewhere classified (principal)
CPT/HCPCS: 36415; 76604; 85610

== ENCOUNTER → 2018-05-27 | Day surgery (SDC) | payer MEDICARE, BC ==
[~2018-05-27] MED LIST changes: +SODIUM CHLORIDE 0.9% 500 ML 500 ML in EMPTY BAG 1 BAG IV PRN; -ceFAZolin 1,000 MG in SODIUM CHLORIDE 0.9% IRRIGATIO 250 ML IRRIGATION ONE; -ceFAZolin IN SWFI 2 GM/20 ML SYRINGE IVP ONE
[2018-05-27 12:36] VITALS: TEMP 98.1
[2018-05-27 12:41] VITALS: RESP 16
[2018-05-27 12:54] VITALS: BP 105/58; PULSE 91
--- NOTE | 2018-05-27 12:55 | PCN ---
PROCEDURE NOTE THORACENTESIS NOTE INDICATION: Pleural effusion. A time-out was completed verifying correct patient, procedure, site, positioning, and implant (s) or special equipment if applicable. Ultrasound guidance was used and appropriate fluid pocket was identified and marked. Patient was positioned, prepped and draped in usual sterile fashion. Lidocaine was used to anesthetize the area. A Thoracentesis catheter was introduced into the pleural space and fluid was removed. Blood loss was none. A chest x-ray was ordered to evaluate for pneumothorax. Total Fluid Removed: 2.1 L Color of Fluid: Turbid dark yellowish pleural effusion. Fluid sent for appropriate laboratory tests. Patient tolerated the procedure well and there were no complications. This was done with ultrasound markings. This was done on the right side. Total amount of fluid removed was 2.1 L of turbid dark yellowish toward effusion without any complications. MMODL / IJN: [id number] /
--- NOTE | 2018-05-27 12:55 | XR ---
EXAMINATION TYPE: XR chest 1V portable DATE OF EXAM: 05/27/2018 HISTORY: Shortness of breath. COMPARISON: 04/03/2018 TECHNIQUE: Single view of the chest is submitted. FINDINGS: There is evidence for a right-sided pneumothorax with the right apical pleural space measuring 1.7 cm . Estimated approximately 10%. Basilar pleural-parenchymal opacities persists. Mediastinal structures are midline. Continued cardiomegaly. Hilar and mediastinal structures are within normal limits. Degenerative changes are seen of the dorsal spine. IMPRESSION: 1. Estimated 10% right-sided pneumothorax. A [place] level critical message alert has been initiated for Rodney Malave MD via the [employer] Critical Results System on 05/27/2018 12:52 PM. This message alert has been sent to Rodney carrasco MD via the preferences provided by the clinician for the receipt of Radiology Critical Findings. Luis essage ID [id number].
[2018-05-27 13:23] LABS: INR 1.8 (<1.2); Prothrombin Time 16.3 sec (9.0-12.0)
--- NOTE | 2018-05-27 15:21 | XR ---
EXAMINATION TYPE: XR chest 1V portable DATE OF EXAM: 05/27/2018 HISTORY: Follow-up pneumothorax COMPARISON: 05/27/2018 TECHNIQUE: Single view of the chest is submitted. FINDINGS: Right-sided pneumothorax persists and has progressed slightly and measures a 1.9 cm right apical jb on versus 1.7 cm previously. Increasing density right lower lobe The heart is stable. Hilar and mediastinal structures are within normal limits. Degenerative changes are seen of the dorsal spine. IMPRESSION: 1. Mild progression right-sided pneumothorax.
== END ==
LOC: PROCWHC3 11:46
PROVIDERS: ATTEND Internal Medicine Critical Care Medicine
DX: J90 Pleural effusion, not elsewhere classified (principal); J93.9 Pneumothorax, unspecified; I13.0 Hypertensive heart and chronic kidney disease with heart failure and stage 1 through stage 4 chronic kidney disease, or unspecified chronic kidney disease; I50.23 Acute on chronic systolic (congestive) heart failure; N18.9 Chronic kidney disease, unspecified; G47.33 Obstructive sleep apnea (adult) (pediatric); I48.2 Chronic atrial fibrillation; E78.5 Hyperlipidemia, unspecified; I25.10 Atherosclerotic heart disease of native coronary artery without angina pectoris; E66.01 Morbid (severe) obesity due to excess calories; Z68.35 Body mass index [BMI] 35.0-35.9, adult; M10.9 Gout, unspecified; J44.9 Chronic obstructive pulmonary disease, unspecified; I27.20 Pulmonary hypertension, unspecified; I35.0 Nonrheumatic aortic (valve) stenosis; Z99.89 Dependence on other enabling machines and devices; Z95.810 Presence of automatic (implantable) cardiac defibrillator; Z79.01 Long term (current) use of anticoagulants; Z79.84 Long term (current) use of oral hypoglycemic drugs; Z79.899 Other long term (current) drug therapy; Z88.5 Allergy status to narcotic agent; Z88.2 Allergy status to sulfonamides; Z88.6 Allergy status to analgesic agent; Z88.1 Allergy status to other antibiotic agents; Z91.040 Latex allergy status; Z90.49 Acquired absence of other specified parts of digestive tract; Z87.891 Personal history of nicotine dependence
CPT/HCPCS: 85610; 71045; 32554; G0463; 99213